=== PATIENT | female | born 1940 | race Caucasian/White ===

== ENCOUNTER 2017-07-03 09:17 | Day surgery (SDC) | payer MEDICARE, BC, SELFPAY ==
[2017-06-30 13:50] VITALS: BMI 24.0
[2017-07-03] VITALS (8 sets, daily range): BP systolic 143–162; BP diastolic 69–89; PULSE 76–90; RESP 16–20; TEMP 36.7–36.8; O2SAT 92–99
--- NOTE | 2017-07-03 10:28 | HMH.ANESCL ---
[facility] Anesthesia Checklist - Patient Identification Patient Identification: Arm Band, Verbal (Name & ) - Structural Data Admitted From: Home Planned Operative Procedure/s: endo Consent for Planned Operative Procedure(s) Verified: Yes Verified Documents: Surgical Consent - NPO Status Verified Time NPO: 00:00 - Additional verifications Patient : No Anesthesia Reactions: No Hx Blood Transfusions: No Blood Transfusion Reaction: No Cephalosporin Allergy: No Previous Colonoscopy: No - Cardiovascular Assessment Heart Sounds: S1 & S2 Pulse Strength: Baseline Pulse Rhythm: Regular Peripheral Edema: No - Airway Assessment C-Spine Mobility Assessed: Yes TMJ Mobility Assessed: Yes Dentition: Dentures-good fit - Neurological Assessment Level of Consciousness: Awake, Alert, Appropriate Hx Seizures: No Numbness or tingling in extremities: No - Anesthesia Plan Anesthesia Risk discussed: Yes Anesthesia Plan: Verified ASA Class: II Anesthesia Type: MAC [facility] Anesthesia HX I have reviewed the patient's past medical history: Yes Medical History: Reports:: Anxiety, Asthma, Hyperlipidemia, Hypertension, Lung Disease (asthma) Denies:: Diabetes Mellitus Type 1, Diabetes Mellitus Type 2, Internal Pacemaker, Seizures Other Medical History: Reports: Arthritis Laterality Cases: Left: Arthroscopy Knee, Right: Total Knee Replacement Other Surgeries: Yes: Appendectomy, Hernia Repair, Hysterectomy-Partial, Other (orthopedic,gallbladder,tonsils). No: Pacemaker *Family Hx:: Cancer, Heart Attack, Hyperlipidemia, Hypertension
--- NOTE | 2017-07-03 10:54 | P.PCN_ITS ---
[facility] Procedure Note Procedure Note:: Upper Endoscopy Procedure Report: Esophagogastroduodenoscopy with TTS balloon dilation Endoscopost: Raymond Jimenez II, MD Referring Physician: Todd Hawk M.D. Date of Procedure: June 30, 2017 Equipment: Olympus GIF 180 standard upper endoscope Sedation: MAC sedation Indications: Mrs. Brown is a 77-year-old female with dysphagia. She reports some intermittent indigestion. She often has regurgitation of food after swallowing and this has worsened over the last 3-4 months. The patient did have a prior upper endoscopy with dilation in 2012 of a Schatzki's ring. The patient does have a history of gallstones with prior cholecystectomy. She reports no heartburn or reflux but does have some intermittent indigestion. Procedure: Prior to the procedure, a history and physical exam was performed, and patient' s medications and allergies were reviewed. The risks, benefits and alternatives of the sedation and procedure were discussed with the patient. All questions were answered and informed consent was obtained. The patient was brought to the procedure room. Patient identification and proposed procedure were verified by the physician and the nurse. The patient was placed in a left lateral decubitus position and the scope was passed under direct vision. Throughout the procedure, the patient's blood pressure, pulse, and oxygen saturations were monitored continuously. The upper GI endoscopy was accomplished without difficulty. The patient tolerated the procedure well. Findings: The scope was passed directly into the upper esophagus and advanced to the third portion of the duodenum. There was a larger duodenal diverticulum in the third portion of the duodenum. There was another duodenal diverticulum that was in the second portion and was a periampullary duodenal diverticulum. The remaining post bulbar duodenum and duodenal bulb were normal with normal mucosa and conniventes. The scope was withdrawn through a normal duodenal bulb and pylorus into the stomach. There was some bile reflux with mild linear erythema of the antrum. The remainder of the antrum, body and fundus of the stomach were grossly normal. Upon retroflexion there was a small 1-2 cm hiatal hernia. The scope was then withdrawn into the esophagus. There was a distal Schatzki's ring. There were also tertiary contractions of mild esophageal dysmotility. The entire esophagus was dilated to 60 [place]/20 mm with a TTS hydrostatic balloon and the Schatzki's ring was shattered. The remainder of the esophageal mucosa was normal. Impression: 1. Schatzki's ring dilated to 20 mm 2. Nonerosive GERD with small 1-2 cm hiatal hernia and mild esophageal dysmotility 3. Bile reflux with minimal linear reactive antritis/gastritis 4. Duodenal diverticula Plan: I will place the patient on omeprazole ?3 months. The patient should have clinical improvement of her dysphagia. We will discuss the findings. Certainly duodenal diverticula are associated with increased risk of choledocholithiasis.
--- NOTE | 2017-07-03 13:03 | HMH.ANESCL ---
[facility] Anesthesia Checklist - Structural Data Planned Operative Procedure/s: colonoscopy Consent for Planned Operative Procedure(s) Verified: Yes - Airway Assessment C-Spine Mobility Assessed: Yes TMJ Mobility Assessed: Yes Dentition: Good Dentition - Neurological Assessment Level of Consciousness: Awake, Alert - Anesthesia Plan Anesthesia Risk discussed: Yes Anesthesia Plan: Verified ASA Class: II Anesthesia Type: MAC [facility] Anesthesia HX Medical History: Reports:: Anxiety, Asthma, Hyperlipidemia, Hypertension, Lung Disease (asthma) Denies:: Diabetes Mellitus Type 1, Diabetes Mellitus Type 2, Internal Pacemaker, Seizures Other Medical History: Reports: Arthritis. Denies: Blood Transfusion Reaction Laterality Cases: Left: Arthroscopy Knee, Right: Total Knee Replacement Other Surgeries: Yes: Appendectomy, Hernia Repair, Hysterectomy-Partial, Other (orthopedic,gallbladder,tonsils). No: Pacemaker *Family Hx:: Cancer, Heart Attack, Hyperlipidemia, Hypertension
== END 2017-07-03 11:38 | disposition home or self-care (01) ==
LOC: OUTP 09:18
PROVIDERS: Family Provider Internal Medicine Adolescent Medicine; PCP Internal Medicine Adolescent Medicine; Visit Provider Internal Medicine Gastroenterology
PROC: 0DJ08ZZ Inspection of Upper Intestinal Tract, Via Natural or Artificial Opening Endoscopic (ICD-10-PCS; CPT 43235; principal; 2017-07-03 10:30)
DX: K22.2 Esophageal obstruction (principal); K21.9 Gastro-esophageal reflux disease without esophagitis; K44.9 Diaphragmatic hernia without obstruction or gangrene; K22.4 Dyskinesia of esophagus; K57.10 Diverticulosis of small intestine without perforation or abscess without bleeding
CPT/HCPCS: 43249; C1726

== ENCOUNTER 2018-11-30 14:00 | Outpatient (RCR) | payer MEDICARE, BC, SELFPAY ==
--- NOTE | 2018-10-31 14:40 | HMH.PTOPEV ---
PT Outpatient Evaluation Rehab PT Outpatient Evaluation Start: 10/31/18 13:22 Freq: Status: Active Protocol: Document 10/31/18 13:22 FAZAL (Rec: 10/31/18 14:40 FAZAL [id number]) Electronically Signed By Kg Valencia, PT 10/31/18 13:22 Outpatient Therapy Subjective History Subjective History Pt reports insidious onset R hip pain beginning ~2 months ago. Pt reports activities involving care for spouse in poor health may have precipitated R hip pain which now experiences intermittent radicular s/s into R calf area . Pt reports no LBP, however, feels that a fall ~1 yr may also be a contributing factor. PMH: B TKA 1995,2016 Chief Complaint Pain,Paresthesia Symptom Type Ache,Sharp,Dull Symptoms Relieved By Rest/Positioning,Heat Symptoms Aggravated By Standing,Bending/Stooping, Physical Activity,Walking, Lifting Prior Functional Limitations Lifting,Housework,Standing, Walking,Bending/Stooping Current Functional Limitations Lifting,Housework,Standing, Walking,Bending/Stooping Symptom Description Constant but Variable Level of pain today (0-10) 2 Pain scale - at its best (0-10) 2 Pain scale - at its worst (0-10) 5 Lumbopelvic Eval Posture Thoracic Spine Posture Standing Position Flattened Lumbar Spine Posture Standing Position Flattened Assistive device Assistive Devices None / NA Gait Observation General Gait Pattern Observation Antalgic Gait Palapation tenderness right paraspinal tenderness Yes: 3/4 buttock tenderness Yes: 3/4 Lumbar/Sacral Palpation Findings Tenderness Accessory Movement L-spine Vertebrae Accessory Movements Right P/A [place] that Elicit Symptoms L4 right L5 right Range of Motion Lumbar Spine Active Flexion Range of 0-75 Motion (degrees) Lumbar Spine Active Extension Range of 0-25 Motion (degrees) Left Lumbar Spine Lateral Flexion Active 0-25 Range of Motion (degrees) Right Lumbar Spine Lateral Flexion 0-25 Active Range of Motion (degrees) Manual Muscle Test Bilateral Knee Extension Strength Grade 5 Normal Knee Flexion Strength Grade 4 Good Hip Flexion Strength Grade 4- Good- Extensor Hallucis Longus Strength Grade 5 Normal Ankle Dorsiflexion Strength Grade 5 Normal Gastronemius/Soleus Str
== END 2018-11-30 14:05 | disposition home or self-care (01) ==
LOC: PT 14:00
PROVIDERS: PCP Internal Medicine Adolescent Medicine; Visit Provider Internal Medicine Adolescent Medicine
DX: M54.41 Lumbago with sciatica, right side (principal)
CPT/HCPCS: 97010; 97012; 97014; 97035; 97110; 97163; G0283

== ENCOUNTER → 2019-12-06 13:54 | Outpatient (CLI) | payer MEDICARE, BC, SELFPAY ==
[2019-12-06 15:52] LABS: Coronavirus 19 IgG Antibody Positive (Negative); Coronavirus 19 IgM Antibody Negative (Negative)
== END ==
PROVIDERS: Visit Provider Internal Medicine Gastroenterology
DX: Z01.818 Encounter for other preprocedural examination (principal); Z12.11 Encounter for screening for malignant neoplasm of colon
CPT/HCPCS: 36415; 86328

== ENCOUNTER 2019-12-09 08:47 | Day surgery (SDC) | payer MEDICARE, BC, SELFPAY ==
[2019-12-03 09:59] VITALS: BMI 25.0
[2019-12-09] VITALS (7 sets, daily range): BP systolic 79–154; BP diastolic 45–81; PULSE 69–100; RESP 10–16; TEMP 36.4–36.7; O2SAT 91–98
--- NOTE | 2019-12-09 09:42 | HMH.ANESCL ---
[facility] Anesthesia Checklist - Patient Identification Patient Identification: Arm Band, Verbal (Name & ) - Structural Data Admitted From: Home Planned Operative Procedure/s: EGD/Colonoscopy Consent for Planned Operative Procedure(s) Verified: Yes Verified Documents: Surgical Consent, History and Physical - NPO Status Verified Time NPO: 00:00 - Chart Verification Results Verified: None - Additional verifications Anesthesia Reactions: No Hx Blood Transfusions: No Blood Transfusion Reaction: No - Airway Assessment C-Spine Mobility Assessed: Yes TMJ Mobility Assessed: Yes Dentition: Dentures-good fit (upper) - Neurological Assessment Level of Consciousness: Awake, Alert, Appropriate, Follows Commands Hx Seizures: No Numbness or tingling in extremities: No - Anesthesia Plan Anesthesia Risk discussed: Yes Anesthesia Plan: Verified ASA Class: III Anesthesia Type: MAC [facility] History I have reviewed the patient's past medical history: Yes Medical History: Reports:: Anxiety, Asthma, Depression, Gastroesophageal Reflux Disease(GERD), Hypertension, Palpitations Denies:: Cancer, Diabetes Mellitus Type 1, Diabetes Mellitus Type 2, Internal Pacemaker, MRSA, Seizures *Have you ever received a pneumonia vaccine?: Yes *Have you received a flu vaccine this season?: Yes Other Medical History: Reports: Arthritis. Denies: Blood Transfusion Reaction Anesthesia experience/problems:: None Laterality Cases: Left: Arthroscopy Knee, Bilateral: Tonsillectomy, Total Knee Replacement Other Surgeries: Yes: Appendectomy, Cholecystectomy, Colonoscopy, Hernia Repair, Hysterectomy-Partial, Tubal Ligation, Other (orthopedic,gallbladder,tonsils). No: Pacemaker Amputation: No Fractures: No - *Social History Last grade of school completed: GED Smoking Status: Never smoker Alcohol Intake: never Alcohol Intake Frequency:: other Substance Use Type: denies use *Occupational Status:: retired *Travel in the last 8 weeks: None - Psychiatric History Pschychiatric History:: Reports:: Anxiety Family Hx:: Cancer, Heart Attack, Hyperlipidemia, Hypertension
--- NOTE | 2019-12-09 09:51 | P.PCN_ITS ---
[facility] Procedure Note Procedure Note:: Upper Endoscopy Procedure Report: Esophagogastroduodenoscopy with TTS balloon dilation Endoscopost: Raymond Jimenez II, MD Referring Physician: Todd Hawk M.D. Date of Procedure: December 09, 2019 Equipment: Olympus GIF 180 standard upper endoscope Sedation: MAC sedation Indications: Mrs. Langston is an 79-year-old female with a long history of dysphagia intermittently from a Schatzki's ring. She had dilation of a Schatzki's ring in 2007 and 2012. She had repeat EGD with dilation in June 2017. The patient has had recurrent symptoms of dysphagia. The patient has had some obstipation. She has regulated her use of MiraLAX. She reports no abdominal pain or heartburn. Procedure: Prior to the procedure, a history and physical exam was performed, and patient's medications and allergies were reviewed. The risks, benefits and alternatives of the sedation and procedure were discussed with the patient. All questions were answered and informed consent was obtained. The patient was brought to the procedure room. Patient identification and proposed procedure were verified by the physician and the nurse. The patient was placed in a left lateral decubitus position and the scope was passed under direct vision. Throughout the procedure, the patient's blood pressure, pulse, and oxygen saturations were monitored continuously. The upper GI endoscopy was accomplished without difficulty. The patient tolerated the procedure well. Findings: The scope was passed directly into the upper esophagus and advanced to the third portion of the duodenum. The post bulbar duodenum and duodenal bulb were normal with normal mucosa and conniventes. The scope was withdrawn through a normal duodenal bulb and pylorus into the stomach. There was some bile reflux with mild linear reactive gastropathy. The remainder of the antrum, body and fundus of the stomach were grossly normal. Upon retroflexion there was a small 1 to 2 cm hiatal hernia. The scope was then withdrawn into the esophagus. There was a distal Schatzki's ring. This was dilated to 20 mm/60 [place] with a TTS hydrostatic balloon. There was fracturing of the Schatzki's ring. There was mild esophageal dysmotility. The remainder of the esophageal mucosa was normal. Impression: 1. Schatzki's ring dilated to 20 mm 2. Mild linear reactive gastropathy 3. Nonerosive GERD with mild esophageal dysmotility and small 1 to 2 cm hiatal hernia Plan: The patient should have clinical improvement with esophageal dilation. I will proceed with surveillance colonoscopy.
--- NOTE | 2019-12-09 10:14 | P.PCN_ITS ---
[facility] Procedure Note Procedure Note:: Colonoscopy Procedure Report: Colonoscopy with cold snare polypectomy Endoscopist: Raymond Jimenez II, MD Referring physician: Todd Hawk M.D. Date of Procedure: December 09, 2019 Equipment: Olympus 180 variable stiffness pediatric colonoscope Sedation: MAC sedation Indication: Mrs. Brown is an 79-year-old female with a personal history of colon polyps who is here for surveillance colonoscopy. She did have a colonoscopy and December 2016 and had 4 colon polyps (tubular adenomas x4) which were removed. She does state that her maternal aunt had colon cancer and her mother and brother had colon polyps. Her mother also had ovarian cancer. The patient has had some chronic constipation/obstipation but recently had more bowel frequency/diarrhea with the MiraLAX. This was adjusted and she is doing better. She reports no abdominal pain, weight loss, change in her bowel habits or rectal bleeding. Procedure: Prior to the procedure, a history and physical exam was performed, and patient's medications and allergies were reviewed. The risks, benefits and alternatives of the sedation and procedure were discussed with the patient. All questions were answered and informed consent was obtained. The patient was brought to the procedure room. Patient identification and proposed procedure were verified by the physician and the nurse. The patient was placed in a left lateral decubitus position and the scope was passed under direct vision. Throughout the procedure, the patient's blood pressure, pulse, and oxygen saturations were monitored continuously. The colonoscopy was accomplished without difficulty. The patient tolerated the procedure well. Findings: On digital rectal examination there was normal rectal tone. There were no external hemorrhoids. The colonoscope was introduced through the anal canal to the rectum and advanced to the cecum. The ileocecal valve and appendiceal orifice were identified. The scope was advanced a short distance into the ileum which appeared grossly normal. The scope was then withdrawn into the colon. The cecum, ascending and transverse colon and mucosa were grossly normal. There was a diminutive 3 mm polyp in the descending colon removed via cold snare polypectomy. There were scattered diverticuli throughout the descending and sigmoid colon (LEFT colon). The rectum itself was normal. Upon retroflexion within the rectum there were grade 1-2 internal hemorrhoids. The preparation was excellent throughout with [place] Preparation Score of 9. The cecal time was 12 minutes. Impression: 1. Diminutive descending colon polyp 2. Extensive left-sided diverticulosis 3. Grade 1-2 internal hemorrhoids Plan: I am not convinced that the patient will need any further preventive/screening colonoscopy. I will discuss the findings with the patient and family. I would continue a fiber bowel regimen on a long-term and daily basis.
--- NOTE | 2019-12-09 10:30 | PC.NURSE ---
Pt arrived to post with oral airway in place. Pt airway remains patent.
--- NOTE | 2019-12-09 10:32 | PC.NURSE ---
Oral airway removed, pt tolerated well. Airway remains patent.
== END 2019-12-09 11:11 | disposition home or self-care (01) ==
LOC: OUTP 08:49
PROVIDERS: PCP Internal Medicine Adolescent Medicine; Visit Provider Internal Medicine Gastroenterology
PROC: 0DJ08ZZ Inspection of Upper Intestinal Tract, Via Natural or Artificial Opening Endoscopic (ICD-10-PCS; CPT 43235; principal; 2019-12-09 10:00)
DX: Z12.11 Encounter for screening for malignant neoplasm of colon (principal); Z86.010 Personal history of colon polyps; K63.5 Polyp of colon; K64.0 First degree hemorrhoids; K57.30 Diverticulosis of large intestine without perforation or abscess without bleeding; K22.2 Esophageal obstruction; K44.9 Diaphragmatic hernia without obstruction or gangrene; K21.9 Gastro-esophageal reflux disease without esophagitis; K31.9 Disease of stomach and duodenum, unspecified; K22.4 Dyskinesia of esophagus; I10 Essential (primary) hypertension; J45.909 Unspecified asthma, uncomplicated
CPT/HCPCS: 43249; 45385; 88305; C1726; J2704

== ENCOUNTER 2020-02-26 15:00 | Outpatient (RCR) | payer MEDICARE, BC, SELFPAY ==
--- NOTE | 2020-01-01 14:00 | HMH.PTOPEV ---
PT Outpatient Evaluation Rehab PT Outpatient Evaluation Start: 01/01/20 13:40 Freq: Status: Active Protocol: Document 01/01/20 13:40 MECHE (Rec: 01/01/20 14:00 [id number]) Electronically Signed By Cl Solis, PT 01/01/20 13:40 Outpatient Therapy Subjective History Subjective History Patient is a 79 year old female presenting to outpatient PT with reports BLE deconditioning and poor balance that has progressively gotten worse over the past year. Pt report 3 falls over the past year secondary to a misstep and getting knocked off balance. Patient lives at home alone requiring negotiation of stairs. She complains of B hip pain (R>L) and chronic LBP as well. Today her main concern is R shoulder pain. PT requested order from MD for R shoulder pain with OT. Referred for ataxia and gait abnormality. Comorbidities include B TKA, HTN and cholecystectomy. Chief Complaint Weakness,Decreased Coordination Symptom Type Ache Symptoms Relieved By Rest/Positioning Symptoms Aggravated By Physical Activity Prior Functional Limitations None Current Functional Limitations Housework,Standing,Squatting, Recreation Activity,Walking, Stairs,Balance,Bending/ Stooping Symptom Description Intermittent Level of pain today (0-10) 0 Pain scale - at its best (0-10) 0 Pain scale - at its worst (0-10) 6 Balance Eval Subjective Hx of Complaint Comment Pt reports general decline in BLE strength and balance. Chief Complaint vertigo No Did you feel dizzy, unsteady or faint? No Activity at onset 1 yr Prior Functional Limitations Prior Functional [place] Level None Current Functional Limitations Comment Patient has difficulty with all standing and ambulatory activities. Hx of Falls Hx Falls Yes Number in last 6 months 3 Gait/Posture Asssessment General Gait Observation Ataxic Gait Assistive Devices
== END 2020-02-26 15:05 | disposition home or self-care (01) ==
LOC: PT 15:00
PROVIDERS: PCP Internal Medicine Adolescent Medicine; Visit Provider Internal Medicine Adolescent Medicine
DX: R27.0 Ataxia, unspecified (principal)
CPT/HCPCS: 97110; 97112; 97163; 97530

== ENCOUNTER 2020-03-04 14:00 | Outpatient (RCR) | payer MEDICARE, BC, SELFPAY | END 2020-03-04 14:05 | disposition home or self-care (01) | LOC: OT 14:00 | PROVIDERS: PCP Internal Medicine Adolescent Medicine; Visit Provider Internal Medicine Adolescent Medicine | DX: M25.511 Pain in right shoulder (principal) | CPT/HCPCS: 97014; 97035; 97110; 97164; 97165; 97530; G0283 ==

== ENCOUNTER 2020-05-31 14:00 | Emergency (ER) | payer MEDICARE, BC, SELFPAY ==
[2020-05-31 14:00] VITALS: BP 152/74; PULSE 84; RESP 16; TEMP 36.3; O2SAT 97; BMI 25.0
--- NOTE | 2020-05-31 14:24 | HMH.EDUTC ---
[facility] Disposition Clinical Impression: Acute bronchitis Qualifiers: Bronchitis organism: other organism Qualified Code(s): J20.8 - Acute bronchitis due to other specified organisms Disposition: Home, Self-Care Condition on Discharge: Good Instructions: Acute Bronchitis, DI for Acute Bronchitis Additional Instructions: Start antibiotic today. Be sure to complete entire prescription even if feeling better Tylenol and ibuprofen as needed for pain or fever Humidifier/vaporizer/hot steamy shower Follow-up with primary care tomorrow. Follow-up immediately in the ER of the [facility] for new or worsening symptoms or no noticeable improvement over the next 48-72 hours. Radha Cunha will not cause drowsiness to use at bedtime to help stop cough so that she can get some sleep Prescriptions: Azithromycin [Zithromax 250mg tab] 250 mg PO DIRECTED #6 tab Prescription Printed Referrals: Todd Hawk MD [Primary Care Provider] - Time of Disposition: 14:37 Medical Decision Making - Ralph Inquiry Pt receiving controlled substance: No Vital Signs: 05/31/20 14:00 Temperature 97.4 F L Temperature Source Oral Pulse Rate [Right Brachial] 84 Respiratory Rate 16 Blood Pressure [Right Arm] 152/74 H Blood Pressure Mean [Right Arm] 100 Blood Pressure Source [Right Arm] Automatic Cuff Blood Pressure Position [Right Arm] Sitting 02 Sat by Pulse Oximetry 97 Oxygen Delivery Method Room Air [facility] HPI - General Chief complaint: Urgent Treatment Center Stated complaint: sore throat Time Seen by Provider: 05/31/20 14:28 Mode of Arrival: Ambulatory Source of Information: Patient Limitations: No Limitations Description of Symptoms (Recalled from Triage Doc. by RN): PATIENT C/O DRAINAGE IN THROAT AND COUGH X 2 DAYS HEENT Symptoms (Recalled from RN notes): Yes Resp Symptoms (Recalled from RN notes): Yes Skin Symptoms (Recalled from RN notes): No MS Symptoms (Recalled from RN notes): No Functional Status (Recalled from RN notes): WN - History of Present Illness Provider Complaint: 80 yr old female presents for sore throat, wheezing,and coughing up thick sputum for 2 days. pt states she had her 1st covid vaccine on monday and does not want a covid swab. Pt states she has copd and he pcp gives her a steroid shot and oral antibiotics and tries to get ahead of it because she takes pneumonia easy. - Related Data Home Medications Medication Instructions Recorded Confirmed lisinopril 20 mg tablet 20 mg PO DAILY tab 06/20/17 05/21/20 ascorbate calcium (vitamin C) 500 500 mg PO DAILY 11/13/19 05/21/20 mg tablet cyanocobalamin (vitamin B-12) 1,000 mcg PO DAILY 11/13/19 05/21/20 1,000 mcg capsule multivitamin with minerals-folic 1 mg PO DAILY 11/13/19 05/21/20 acid 0.4 mg tablet Previous Rx's Medication Instructions Recorded Azithromycin [Zithromax 250mg tab] 250 mg PO DIRECTED #6 tab 05/31/20 Allergies Allergy/AdvReac Type Severity Reaction Status Date / Time No Known Allergies Allergy Verified 05/21/20 15:07 - Worker's Comp Is this a Worker's Comp case?: No [facility] History - Hepatitis A Screen Drug use history?: No High risk sexual behaviors?: No History of sexually transmitted infection?: No Currently employed?: No Childcare worker?: No Do you have indoor plumbing?: Yes Do you have electricity?: Yes Attestation statement:: This patient has been screened for Hepatitis A risk factors. I have reviewed the patient's past medical history: Yes Medical History: Reports:: Anxiety, Asthma, Depression, Gastroesophageal Reflux Disease(GERD), Hyperlipidemia, Hypertension, Lung Disease, Palpitations Denies:: Cancer, Diabetes Mellitus Type 1, Diabetes Mellitus Type 2, Internal Pacemaker, MRSA, Seizures Other Medical History: Reports: Arthritis. Denies: Blood Transfusion Reaction Laterality Cases: Left: Arthroscopy Knee, Bilateral: Tonsillectomy Other Surgeries: Yes: Appendectomy, Cholecystectomy, Colonoscop
[2020-05-31 14:25] LABS: UTC Strep Screen (Rapid) Negative (Negative)
[2020-05-31 14:42] VITALS: BP 152/74; PULSE 84; RESP 16; TEMP 36.3; O2SAT 97
== END 2020-05-31 14:44 | disposition home or self-care (01) ==
PROVIDERS: Emergency Provider Nurse Practitioner Family; PCP Internal Medicine Adolescent Medicine
DX: J20.8 Acute bronchitis due to other specified organisms (principal); J44.9 Chronic obstructive pulmonary disease, unspecified; K21.9 Gastro-esophageal reflux disease without esophagitis; F41.8 Other specified anxiety disorders; E78.5 Hyperlipidemia, unspecified; I10 Essential (primary) hypertension; Z79.899 Other long term (current) drug therapy
CPT/HCPCS: G0463; 87880; 96372; 99202

== ENCOUNTER → 2020-08-21 11:43 | Outpatient (CLI) | payer MEDICARE, BC, SELFPAY ==
[2020-08-21 12:33] LABS: Basophils # 0.1 K/mm3 (0-0.2); Basophils % 1.5 % (0.1-2.0); Eosinophils # 0.1 K/mm3 (0.0-0.4); Eosinophils % 2.2 % (0.1-12.0); Hematocrit 41.8 % (37.0-47.0); Hemoglobin 13.4 g/dL (12.2-16.2); Lymphocytes # 1.6 K/mm3 (0.7-4.5); Lymphocytes % 30.9 % (10-50); Mean Corpuscular HGB Conc 32.1 g/dL (31.8-35.4); Mean Corpuscular Hemoglobin 29.3 pg (27.0-31.2); Mean Corpuscular Volume 91.1 fl (81-99); Mean Platelet Volume 8.6 fl (7.4-10.4); Monocytes # 0.3 K/mm3 (0.1-1.0); Monocytes % 5.9 % (1.7-9.3); Neutrophils % 59.4 % (37.0-80.0); Platelet Count 229 K/mm3 (142-424); Red Blood Count 4.59 M/mm3 (4.20-5.40); Red Cell Distribution Width 13.2 % (11.5-17.5); White Blood Count 5.1 K/mm3 (4.8-10.8)
[2020-08-21 13:01] LABS: Chloride 104 mmol/L (98-107); Sodium 138 mmol/L (136-145)
[2020-08-21 13:02] LABS: Potassium 4.8 mmoL/L (3.5-5.1)
[2020-08-21 13:04] LABS: Alanine Aminotransferase 10 U/L (12-78); Albumin Level 4.4 g/dl (3.5-5.0); Albumin/Globulin Ratio 1.8 (1.1-1.8); Alkaline Phosphatase 71 U/L (38-126); Anion Gap 11.8 mEq/L (5-15); Aspartate Amino Transferase 28 U/L (14-36); Bilirubin,Total 0.8 mg/dl (0.2-1.3); Blood Urea Nitrogen 23 mg/dl (7-17); Carbon Dioxide 27 mmol/L (22.0-30.0); Estimated Glomerular Filt Rate 80 ml/min (>60); GFR (African American) 97 ML/MIN (>60); Globulin 2.4 g/dL (1.3-3.2); Total Protein,Serum 6.8 g/dl (6.3-8.2); Triglycerides 84 mg/dl (30-150); VLDL Cholesterol 17 mg/dL (0-40)
[2020-08-21 13:05] LABS: Calcium 9.6 mg/dl (8.4-10.2); Chol/HDL Ratio 3.3 (1-3.5); Cholesterol 238 mg/dl (140-200); Glucose 88 mg/dl (74-100); HDL Cholesterol 73 mg/dl (40-60)
[2020-08-21 13:16] LABS: Direct LDL Cholesterol 136.71 mg/dL (100-129)
[2020-08-21 13:35] LABS: Thyroid Stimulating Hormone 1.18 uIU/mL (0.465-4.68)
== END ==
PROVIDERS: Visit Provider Internal Medicine Adolescent Medicine
DX: I10 Essential (primary) hypertension (principal); Z86.39 Personal history of other endocrine, nutritional and metabolic disease
CPT/HCPCS: 36415; 80053; 80061; 84443; 85025

== ENCOUNTER → 2020-10-19 11:39 | Outpatient (CLI) | payer MEDICARE, BC, SELFPAY ==
--- NOTE | 2020-10-19 11:46 | XR_ITS ---
PROCEDURE: XR CHEST W DECUBITUS Left ribs CLINICAL HISTORY: CHEST WALL PAIN, ACUTE BRONCHOPNEUMONIA COMPARISON: CR CXR CHEST(2 VIEWS-NOT PORTABLE) from 05/16/2016 CT CTAC CTA-CHEST from 11/13/2016 CR CXR CHEST(2 VIEWS-NOT PORTABLE) from 02/22/2017 CR XR CHEST 2V from 04/25/2019 CR XR RIBS LT MIN 3V W CXR1V from 10/19/2020 FINDINGS: The heart size is unremarkable. There is mild prominence of the right hilum. The lungs are clear without infiltrates, suspicious nodules, or pleural effusions. Right and left lateral decubitus chest film show no evidence significant layering effusion. Prominent mitral valve annular calcification is noted. Lumbar scoliosis convex right. Multiple views of the left ribs show no displaced fracture. There is an old right humeral neck fracture versus prominent osteophyte formation with mild chronic wedging of T8 IMPRESSION: Chronic changes, no acute finding. Mild prominence of the right hilum. Consider chest CT with contrast for further evaluation. Dictated by: Artemio Fields MD 10/19/2020 13:03 Artemio Fields MD in [place] 10/19/2020 13:03
== END ==
PROVIDERS: PCP Internal Medicine Adolescent Medicine; Visit Provider Internal Medicine Adolescent Medicine
DX: R07.89 Other chest pain (principal); J18.0 Bronchopneumonia, unspecified organism
CPT/HCPCS: 71045; 71101

== ENCOUNTER 2020-11-13 12:53 | Emergency (ER) | payer MEDICARE, BC, SELFPAY ==
[2020-11-13 13:49] VITALS: BP 141/76; PULSE 72; RESP 16; TEMP 36.9; O2SAT 98; BMI 24.2
--- NOTE | 2020-11-13 14:09 | HMH.EDUTC ---
[facility] [place] Disposition Clinical Impression: Bronchitis Sinusitis Qualifiers: Sinusitis location: unspecified location Chronicity: unspecified Qualified Code(s): J32.9 - Chronic sinusitis, unspecified Disposition: Home, Self-Care Condition on Discharge: Good Instructions: Sinusitis, DI for Sinusitis, DI for Acute Bronchitis Additional Instructions: ? Start antibiotic today. Be sure to complete entire prescription even if feeling better ? Monitor temp. Tylenol every 4 hours as needed and / or ibuprofen every 6 hours as needed ( As long as your primary care physician has told you that it ok to take both. For fever/aches/pains ER if no less than 101 despite Tylenol or Motrin ? Humidifier/vaporizer or hot steamy shower ? Inhaler every 4-6 hours as needed like we discussed. If unsure how to use it, ask pharmacist to demonstrate how. Should help open airways and improve cough, wheezing, and shortness of breath Follow up IMMEDIATELY for new or worsening of symptoms OR no noticeable improvement over the next 48-72 hours. 911 immediately for any life threatening symptoms such as chest pain or difficulty breathing Prescriptions: Albuterol Sulfate [Proventil-HFA 90mcg/puff Inh] 1 - 2 puffs IH Q4HP PRN #1 inh PRN Reason: Shortness Of Breath Transmission Status: Received by [id number] Azithromycin [Z-Nick 250mg Tab] 250 mg PO DIRECTED #6 tab Transmission Status: Received by [id number] Referrals: Todd Hawk MD [Primary Care Provider] - As needed Time of Disposition: 14:36 Medical Decision Making - Ralph Inquiry Pt receiving controlled substance: No Ralph was queried for this patient: No Vital Signs: 11/13/20 13:49 Temperature 98.4 F Temperature Source Oral Pulse Rate [Right] 72 Respiratory Rate 16 Blood Pressure [Right Arm] 141/76 H Blood Pressure Mean [Right Arm] 97 Blood Pressure Source [Right Arm] Automatic Cuff Blood Pressure Position [Right Arm] Sitting 02 Sat by Pulse Oximetry 98 Oxygen Delivery Method Room Air Orders (Tests/Meds): ED MEDICATIONS Discontinued Medications Generic Name Dose Route Start Last Admin Trade Name Freq PRN Reason Stop Dose Admin Ceftriaxone Sodium 1 gm 11/13/20 14:16 11/13/20 14:26 Ceftriaxone 1gm Vial IM 11/13/20 14:17 1 gm ONCE ONE Administration Protocol Lidocaine HCl 0 ml 11/13/20 14:16 11/13/20 14:26 Lidocaine 1% 5ml Pf Vial IM 11/13/20 14:17 2.1 ml ONCE ONE Administration Medical Decision Narrative: Patient states that she has taken azithromycin in the past without reactions or complications [facility] HPI - General Stated complaint: Congestion sorethroat Time Seen by Provider: 11/13/20 14:09 Mode of Arrival: Ambulatory Source of Information: Patient Limitations: No Limitations Description of Symptoms (Recalled from Triage Doc. by RN): pt c/o cough and congestion HEENT Symptoms (Recalled from RN notes): No Resp Symptoms (Recalled from RN notes): Yes (cough and congestion) Skin Symptoms (Recalled from RN notes): No MS Symptoms (Recalled from RN notes): No Functional Status (Recalled from RN notes): na - History of Present Illness Provider Complaint: Patient states that she has been having sore throat, cough, nasal congestion and drainage State that she has been coughing up greenish colored mucous States that she gets bronchitis about this time every year and starts with her sinus congestion States that she came in to get treated before it got too bad - Related Data Home Medications Medication Instructions Recorded Confirmed lisinopril 20 mg tablet 20 mg PO DAILY tab 06/20/17 11/12/20 ascorbate calcium (vitamin C) 500 500 mg PO DAILY 11/13/19 11/12/20 mg tablet cyanocobalamin (vitamin B-12) 1,000 mcg PO DAILY 11/13/19 11/12/20 1,000 mcg capsule multivitamin with minerals-folic 1 mg PO DAILY 11/13/19 11/12/20 acid 0.4 mg tablet celecoxib 100 mg capsule 100 mg PO cap 08/20/20 11/12/20 alprazo
[2020-11-13 14:59] VITALS: BP 141/76; PULSE 72; RESP 16; TEMP 36.9; O2SAT 98
== END 2020-11-13 14:59 | disposition home or self-care (01) ==
PROVIDERS: Emergency Provider Nurse Practitioner; PCP Internal Medicine Adolescent Medicine
DX: J20.9 Acute bronchitis, unspecified (principal); J32.9 Chronic sinusitis, unspecified; I10 Essential (primary) hypertension; E78.5 Hyperlipidemia, unspecified; F41.8 Other specified anxiety disorders; K21.9 Gastro-esophageal reflux disease without esophagitis
CPT/HCPCS: G0463; 99202

== ENCOUNTER → 2020-12-17 10:14 | Outpatient (CLI) | payer MEDICARE, BC, SELFPAY ==
[2020-12-17 10:41] LABS: Basophils # 0.1 K/mm3 (0-0.2); Basophils % 1.9 % (0.1-2.0); Eosinophils # 0.2 K/mm3 (0.0-0.4); Eosinophils % 4.4 % (0.1-12.0); Hematocrit 42.1 % (37.0-47.0); Hemoglobin 13.4 g/dL (12.2-16.2); Lymphocytes # 1.6 K/mm3 (0.7-4.5); Lymphocytes % 31.4 % (10-50); Mean Corpuscular HGB Conc 31.7 g/dL (31.8-35.4); Mean Corpuscular Hemoglobin 30.5 pg (27.0-31.2); Mean Corpuscular Volume 96.3 fl (81-99); Mean Platelet Volume 8.5 fl (7.4-10.4); Monocytes # 0.2 K/mm3 (0.1-1.0); Monocytes % 4.8 % (1.7-9.3); Neutrophils # 2.8 K/mm3 (1.8-7.8); Neutrophils % 57.5 % (37.0-80.0); Platelet Count 190 K/mm3 (142-424); Red Blood Count 4.37 M/mm3 (4.20-5.40); Red Cell Distribution Width 12.7 % (11.5-17.5); White Blood Count 4.9 K/mm3 (4.8-10.8)
[2020-12-17 11:01] LABS: Chloride 106 mmol/L (98-107); Potassium 4.3 mmoL/L (3.5-5.1); Sodium 142 mmol/L (136-145)
[2020-12-17 11:03] LABS: Blood Urea Nitrogen 16 mg/dl (7-17); Estimated Glomerular Filt Rate 80 ml/min (>60); GFR (African American) 97 ML/MIN (>60)
[2020-12-17 11:04] LABS: Alanine Aminotransferase 9 U/L (12-78); Albumin Level 3.7 g/dl (3.5-5.0); Albumin/Globulin Ratio 1.4 (1.1-1.8); Alkaline Phosphatase 54 U/L (38-126); Anion Gap 11.3 mEq/L (5-15); Aspartate Amino Transferase 25 U/L (14-36); Bilirubin,Total 0.5 mg/dl (0.2-1.3); Calcium 9.1 mg/dl (8.4-10.2); Carbon Dioxide 29 mmol/L (22.0-30.0); Globulin 2.6 g/dL (1.3-3.2); Glucose 90 mg/dl (74-100); Total Protein,Serum 6.3 g/dl (6.3-8.2)
[2020-12-17 11:34] LABS: Thyroid Stimulating Hormone 1.69 uIU/mL (0.465-4.68)
== END ==
PROVIDERS: Visit Provider Internal Medicine Adolescent Medicine
DX: I10 Essential (primary) hypertension (principal)
CPT/HCPCS: 36415; 80053; 84443; 85025

== ENCOUNTER 2021-01-22 16:15 | Emergency (ER) | payer MEDICARE, BC, SELFPAY ==
[2021-01-22 16:41] VITALS: BP 141/72; PULSE 85; RESP 17; TEMP 36.8; O2SAT 99; BMI 25.7
--- NOTE | 2021-01-22 16:47 | HMH.EDUTC ---
[facility] [place] Disposition Clinical Impression: Bronchitis Sinusitis Qualifiers: Sinusitis location: unspecified location Chronicity: unspecified Qualified Code(s): J32.9 - Chronic sinusitis, unspecified Disposition: Home, Self-Care Condition on Discharge: Good Instructions: Sinusitis, DI for Sinusitis, Azithromycin, Benzonatate Additional Instructions: *Monitor Temp, Over the counter Motrin or Tylenol as directed/as needed Tylenol every 4 hours and Motrin every 6 hours (as long as your family doctor has told you that you can take it) for fever or pain. and straight to ER if unable to lower temp less than 101.0 after medication given *Warm salt water gargles may help to soothe the throat *Throat Lozenges *Warm fluids like tea with honey may help to soothe the throat *Sleep elevated *Humidifier/Vaporizer *Flonase 2 sprays in each nostril daily but be aware that it may take 2-3 days before you notice improvement Take medication as prescribed Return if needed Follow up with your Family Doctor if no improvement Follow up IMMEDIATELY for new or worsening symptoms or no Noticeable improvement over the next 48-72 hours. 911 for difficulty breathing or swallowing Prescriptions: Fluticasone Propionate [Flonase 50mcg nasal spray 16gm] 1 spr NS DAILY #1 each Transmission Status: Pending to [facility] Benzonatate [Tessalon Perle 100mg Cap*] 100 mg PO TID PRN #30 cap PRN Reason: Cough Transmission Status: Pending to [facility] Azithromycin [Z-Nick 250mg Tab] 250 mg PO DIRECTED #6 tab Transmission Status: Pending to [facility] Referrals: [facility],Carine Sagastume [Primary Care Provider] - Time of Disposition: 17:00 Medical Decision Making - Ralph Inquiry Pt receiving controlled substance: No Ralph was queried for this patient: No Vital Signs: 01/22/21 16:41 Temperature 98.2 F Temperature Source Temporal Artery Scan Pulse Rate [Left] 85 Respiratory Rate 17 Blood Pressure [Right Arm] 141/72 H Blood Pressure Mean [Right Arm] 95 02 Sat by Pulse Oximetry 99 Medical Decision Narrative: Patient states that she has taken azithromycin in the past without complications or reactions [facility] [place] HPI - General Stated complaint: cough, drainage, allergies x 3 days Time Seen by Provider: 01/22/21 16:53 Mode of Arrival: Ambulatory Source of Information: Patient Limitations: No Limitations Description of Symptoms (Recalled from Triage Doc. by RN): PT C/O A SORE THROAT AND DRAINAGE X3 DAYS HEENT Symptoms (Recalled from RN notes): Yes (SORE THROAT AND DRAINAGE) Resp Symptoms (Recalled from RN notes): No Skin Symptoms (Recalled from RN notes): No MS Symptoms (Recalled from RN notes): No Functional Status (Recalled from RN notes): NA - History of Present Illness Provider Complaint: Patient states that she started off with allergies a week or so ago and now she is having nasal congestion, pressure and drainage in the back of her throat that is making her cough States that she feels like her throat is getting sore and today she was feeling worse so she came in to get it checked - Related Data Home Medications Medication Instructions Recorded Confirmed lisinopril 20 mg tablet 20 mg PO DAILY tab 06/20/17 11/12/20 ascorbate calcium (vitamin C) 500 500 mg PO DAILY 11/13/19 11/12/20 mg tablet cyanocobalamin (vitamin B-12) 1,000 mcg PO DAILY 11/13/19 11/12/20 1,000 mcg capsule multivitamin with minerals-folic 1 mg PO DAILY 11/13/19 11/12/20 acid 0.4 mg tablet celecoxib 100 mg capsule 100 mg PO cap 08/20/20 11/12/20 alprazolam 0.25 mg tablet 0.25 mg PO PRN tab 11/12/20 11/12/20 atorvastatin 10 mg tablet 10 mg PO tab 11/12/20 11/12/20 Previous Rx's Medication Instructions Recorded Albuterol Sulfate [Proventil-HFA 1 - 2 puffs IH Q4HP PRN #1 inh 11/13/20 90mcg/puff Inh] Azithromycin [Z-Nick 250mg Tab] 250 mg PO DIRECTED #6 tab 11/13/20 Azithromycin [Z-Nick 250m
[2021-01-22 17:05] VITALS: BP 141/72; PULSE 85; RESP 17; TEMP 36.8
== END 2021-01-22 17:08 | disposition home or self-care (01) ==
PROVIDERS: Emergency Provider Nurse Practitioner; PCP Internal Medicine Adolescent Medicine
DX: J20.9 Acute bronchitis, unspecified (principal); J32.9 Chronic sinusitis, unspecified; K21.9 Gastro-esophageal reflux disease without esophagitis; E78.5 Hyperlipidemia, unspecified; F41.8 Other specified anxiety disorders; I10 Essential (primary) hypertension; J45.909 Unspecified asthma, uncomplicated; Z79.899 Other long term (current) drug therapy
CPT/HCPCS: G0463; 99202

== ENCOUNTER → 2021-02-24 11:48 | Outpatient (CLI) | payer MEDICARE, BC, SELFPAY ==
--- NOTE | 2021-02-24 | CA_ITS ---
APPROVED REPORT EXAM: Comprehensive 2D, Doppler, and color-flow Echocardiogram Brim Shaper: Ivelisse Mitchell RT(R) Ht: 5 ft 4 in Wt: 150lbs BSA: 1.73 BP: 148/76 mmHg Indications: Murmur, palpitations, HTN, rheumatic fever, GERD, hyperlipidemia 2D Dimensions LVOT 2.17 cm (M/F) 1.5-2.5 M-Mode Dimensions RVDd 2.50 cm (0.9-2.6) LA Diam 3.55 cm (1.9-4.0) LVDd 5.01 cm (3.5-5.7) Ao Diam 3.26 cm (2.0-3.7) LVDs 3.29 cm (3.5-5.7) IVSd 0.75 cm (0.6-1.1) PWd 0.63 cm (0.6-1.1) EF (Teich) 63.10% FS 34.30% EDV (Teich) 118.80 mL ESV (Teich) 43.80 mL LV Diastology E Decel Time 363.00 (160-240 msec) E/A Ratio 0.7 Aortic Valve LVOT Max 116.00 (70-110 cm/s) LVOT VTI 24.88 cm AoV Peak Jaun. 256.00 (50-130 cm/s) AO Peak GR. 26.30 mmHg AO Mean GR. 12.90 (<5 mmHg) AO VTI 51.00 (18-25 cm) ARIEL (VTI) 1.80 (2.5-4.5 cm2) Mitral Valve MV E Max Jaun. 118.00 (40-130 cm/s) MV A Velocity 163.00 (40-130 cm/s) E/A Ratio 0.72 MV Decel. Time 363.00 (160-240 ms) MV PHT 106.00 ms Tricuspid Valve TR P. Velocity 224.00 cm/s RAP Estimate 10.00 mmHg RVSP 30.10 mmHg Left Ventricle Left atrium is mildly enlarged, left ventricle is normal size, mild concentric left ventricular hypertrophy, visually estimated ejection fraction 55% with no regional wall motion abnormality, Doppler evidence of impaired LV relaxation seen. Right Ventricle Right atrium and right ventricle is normal size and contractility. Aortic Valve Aortic valve is thickened and calcified, mean gradient across valve is 13 mmHg, valve area is 1.54 cm??? represents mild aortic stenosis, there is mild aortic insufficiency. Mitral Valve Mitral valve has mitral annular calcification which extends both anterior posterior mitral leaflet, the mean gradient across mitral valve is 5 mmHg, valve area is 2.4 cm??? represents mild calcific mitral stenosis. There is mild mitral regurgitation. Tricuspid Valve Tricuspid valve grossly normal, there is mild tricuspid regurgitation, calculated right ventricular systolic pressure 30 mmHg. Pulmonic Valve Pulmonic valve is poorly visualized. Great Vessels Aortic root is normal size. Inferior vena cava is normal size with normal inspiratory collapse. Pericardium No significant pericardial effusion noted. Conclusion 1. Mildly enlarged left atrium, normal left ventricular size, mild concentric left ventricular hypertrophy, visually estimated ejection fraction 55% with no regional wall motion abnormality, Doppler evidence of impaired LV relaxation seen. 2. Thickened and calcified aortic valve with valve area 1.54 cm??? represents mild aortic stenosis, there is mild aortic insufficiency. 3. Thickened and calcified mitral valve as described above, with mild mitral stenosis, valve area is 2.4 cm???. There is mild mitral regurgitation. 4. Mild tricuspid regurgitation, calculated right ventricular systolic pressure 30 mmHg. 5. No significant pericardial effusion noted. 6. Inferior vena cava is normal size with normal inspiratory collapse. Electronically signed by : Jeronimo Greenberg MD 02/25/2021 16:20:51
== END ==
PROVIDERS: PCP Internal Medicine Adolescent Medicine; Visit Provider Internal Medicine Adolescent Medicine
DX: R01.1 Cardiac murmur, unspecified (principal)
CPT/HCPCS: 93306

== ENCOUNTER → 2021-04-28 10:08 | Outpatient (CLI) | payer MEDICARE, BC, SELFPAY ==
[2021-04-28 10:12] LABS: Adenovirus F 40/41, stool Not Detected (NotDetected); Astrovirus Not Detected (NotDetected); Campylobacter Not Detected (NotDetected); Clostridium Difficile A/B, PCR Not Detected (NotDetected); Cryptosporidium Not Detected (NotDetected); Cyclospora Cayetanesis Not Detected (NotDetected); Entamoeba histolytica Not Detected (NotDetected); Enteroaggregative E coli Not Detected (NotDetected); Enteropathogenic E coli Not Detected (NotDetected); Enterotoxigenic E coli Not Detected (NotDetected); Giardia lamblia Not Detected (NotDetected); Norovirus Not Detected (NotDetected); Plesimonas Shigalloides, PCR Not Detected (NotDetected); Rotavirus A Not Detected (NotDetected); Salmonella, PCR Not Detected (NotDetected); Sapovirus Not Detected (NotDetected); Shiga-like toxin E coli Not Detected (NotDetected); Shigella Enterovasive E coli Not Detected (NotDetected); Vibrio Cholerae Not Detected (NotDetected); Vibrio, PCR Not Detected (NotDetected); Yersinia Entercolitica, PCR Not Detected (NotDetected)
== END ==
PROVIDERS: Visit Provider Nurse Practitioner Family
DX: R19.7 Diarrhea, unspecified (principal); R19.4 Change in bowel habit; R14.2 Eructation; R63.0 Anorexia
CPT/HCPCS: 87506

== ENCOUNTER 2021-05-29 11:23 | Emergency (ER) | payer MEDICARE, BC, SELFPAY ==
[2021-05-29] VITALS (12 sets, daily range): BP systolic 131–188; BP diastolic 72–95; PULSE 80–92; RESP 15–19; TEMP 36.6; O2SAT 97–99; BMI 25.7; BMI 29.2
--- NOTE | 2021-05-29 11:42 | HMH.EDUTC ---
[facility] [place] Clinical Impression: Dizziness Disposition: Still a Patient Condition on Discharge: Good Referrals: Todd Hawk MD [Primary Care Provider] - Time of Disposition: 11:47 Medical Decision Making - Ralph Inquiry Pt receiving controlled substance: No [facility] H[place] - General Chief complaint: [facility] Stated complaint: right ear pain Time Seen by Provider: 05/29/21 11:43 Source of Information: Patient Limitations: No Limitations - History of Present Illness Provider Complaint: 81 yr old female presents for dizziness, swimmy headed, gait off, rt ear pain and vision is off that started this am. pt states she lives alone and she had a hard time this am trying to get around due to unsteady gait. - Related Data Home Medications Medication Instructions Recorded Confirmed lisinopril 20 mg tablet 20 mg PO DAILY tab 06/20/17 05/17/21 ascorbate calcium (vitamin C) 500 500 mg PO DAILY 11/13/19 05/17/21 mg tablet cyanocobalamin (vitamin B-12) 1,000 mcg PO DAILY 11/13/19 05/17/21 1,000 mcg capsule multivitamin with minerals-folic 1 mg PO DAILY 11/13/19 05/17/21 acid 0.4 mg tablet celecoxib 100 mg capsule 100 mg PO cap 08/20/20 05/17/21 alprazolam 0.25 mg tablet 0.25 mg PO PRN tab 11/12/20 05/17/21 atorvastatin 10 mg tablet 10 mg PO tab 11/12/20 05/17/21 Previous Rx's Medication Instructions Recorded Albuterol Sulfate [Proventil-HFA 1 - 2 puffs IH Q4HP PRN #1 inh 11/13/20 90mcg/puff Inh] Fluticasone Propionate [Flonase 1 spr NS DAILY #1 each 01/22/21 50mcg nasal spray 16gm] Allergies Allergy/AdvReac Type Severity Reaction Status Date / Time No Known Allergies Allergy Verified 05/17/21 13:40 [facility] History - Hepatitis A Screen Attestation statement:: This patient has been screened for Hepatitis A risk factors. I have reviewed the patient's past medical history: Yes Medical History: Reports:: Anxiety, Asthma, Depression, Gastroesophageal Reflux Disease(GERD), Hyperlipidemia, Hypertension, Lung Disease, Palpitations Denies:: Cancer, Diabetes Mellitus Type 1, Diabetes Mellitus Type 2, Internal Pacemaker, MRSA, Seizures Other Medical History: Reports: Arthritis. Denies: Blood Transfusion Reaction Laterality Cases: Left: Arthroscopy Knee, Bilateral: Tonsillectomy Other Surgeries: Yes: No Previous Surgery, Appendectomy, Cholecystectomy, Colonoscopy, Hernia Repair, Hysterectomy-Partial, Tubal Ligation, Other (orthopedic,gallbladder,tonsils). No: Pacemaker Amputation: No Fractures: No - Social History Smoking Status: Never smoker Alcohol Intake: never Alcohol Intake Frequency:: other Substance Use Type: denies use Occupational Status: other Housing: house Household Members: none - Psychiatric History Pschychiatric History:: Reports:: Anxiety, Depression Family Hx:: Cancer, Heart Attack, Hyperlipidemia, Hypertension Comment: arthritis,tb, ROS Obtained: Yes Systems reviewed as appropriate & no additional complaints - Constitutional Constitutional: Reports system reviewed and no additional complaints, except as docu, Denies body ache, Denies fever(s) - Eyes Eyes: Reports system reviewed and no additional complaints, except as docu, Reports blurry vision, Reports irritation, Reports loss of vision - ENT Ears, Nose, Mouth, and Throat: Reports system reviewed and no additional complaints, except as docu, Reports dizziness, Reports otalgia - Cardiovascular Cardiovascular: Reports system reviewed and no additional complaints, except as docu, Denies chest pain - Respiratory Respiratory: Reports system reviewed and no additional complaints, except as docu, Denies shortness of breath - Gastrointestinal Gastrointestingal: Reports: system reviewed and no additional complaints, except as docu. Denies: abdominal pain - Musculoskeletal Musculoskeletal: Reports system reviewed and no additional complaints, except as docu, Denies joint pain - Integumentary/[place]
--- NOTE | 2021-05-29 11:45 | PC.NURSE ---
PATIENT SENT TO ER PER Kandi BURROUGHS APRN FOR FURTHER EVALUATION. REPORT GIVEN TO Franko RICHMOND RN BY Kandi BURROUGHS APRN
--- NOTE | 2021-05-29 12:20 | CT_ITS ---
PROCEDURE INFORMATION: Exam: CT Head Without Contrast Exam date and time: 05/29/2021 12:20 PM Age: 81 years old Clinical indication: Dizziness; Additional info: Visual changes, dizziness acute onset, posterior? TECHNIQUE: Imaging protocol: Computed tomography of the head without contrast. Radiation optimization: All CT scans at this facility use at least one of these dose optimization techniques: automated exposure control; mA and/or kV adjustment per patient size (includes targeted exams where dose is matched to clinical indication); or iterative reconstruction. Other technique: STROKE PROTOCOL was implemented. COMPARISON: No relevant prior studies available. FINDINGS: Brain: There is a 5 mm hyperdensity within the superior aspect of the left frontal lobe which has Hounsfield units measuring 70. It is somewhat small to characterize and may be consistent with a calcification or an acute parenchymal hemorrhage. There is no adjacent edema. There is no mass effect. There is preservation of the garcia-white junction throughout. Cerebral ventricles: The ventricles and CSF spaces are normal in size for age. Paranasal sinuses: There is rightward gaze preference. Mastoid air cells: Visualized mastoid air cells are well aerated. Orbital cavity: There are postoperative changes from prior cataract surgery. Bones/joints: No acute fracture. Soft tissues: Unremarkable. IMPRESSION: Abnormal noncontrast CT of the brain with a 5 mm hyperdensity in the high left frontal lobe which could be secondary to an acute parenchymal hemorrhage without mass effect or edema. A parenchymal calcification may have a similar finding. ASSESSMENT: ASPECTS ([facility]iane Stroke Program Early CT Score) is 10.
--- NOTE | 2021-05-29 12:20 | CT_ITS ---
PROCEDURE INFORMATION: Exam: CT Angiography Head With Contrast, Arteriography Exam date and time: 05/29/2021 12:20 PM Age: 81 years old Clinical indication: Dizziness and giddiness and visual disturbance; Transient visual loss; Additional info: Visual changes, dizziness acute onset, posterior? TECHNIQUE: Imaging protocol: Computed tomography angiography of the head with contrast. Exam focused on the arteries. 3D rendering (Not supervised by radiologist): MIP and/or 3D reconstructed images were created by the technologist. Radiation optimization: All CT scans at this facility use at least one of these dose optimization techniques: automated exposure control; mA and/or kV adjustment per patient size (includes targeted exams where dose is matched to clinical indication); or iterative reconstruction. Contrast material: ISOVUE; Contrast volume: 70 ml; Contrast route: INTRAVENOUS (IV); COMPARISON: CT HEAD/BRAIN WO CON 05/29/2021 1:23 PM FINDINGS: ANTERIOR CIRCULATION: Right internal carotid artery: There is atherosclerotic disease at the origin of the right ICA without narrowing. Right middle cerebral artery: No occlusion or significant stenosis. No aneurysm. Right anterior cerebral artery: No occlusion or significant stenosis. No aneurysm. Left internal carotid artery: There is atherosclerotic disease at the origin of the left ICA without narrowing. Left middle cerebral artery: No occlusion or significant stenosis. No aneurysm. Left anterior cerebral artery: No occlusion or significant stenosis. No aneurysm. POSTERIOR CIRCULATION: Right vertebral artery: No occlusion or significant stenosis. No aneurysm. Left vertebral artery: No occlusion or significant stenosis. No aneurysm. Basilar artery: No occlusion or significant stenosis. No aneurysm. Right posterior cerebral artery: No occlusion or significant stenosis. No aneurysm. Left posterior cerebral artery: No occlusion or significant stenosis. No aneurysm. Bones/joints: There are degenerative changes of the cervical spine. Thyroid: The thyroid is heterogeneous. Lungs: There are two 5 mm semi-solid nodules in the right lung apex. There is a pneumatocele in the anterior left upper lobe. IMPRESSION: 1. There is no cervical arterial stenosis or occlusion. 2. 5 mm semi-solid nodules right upper lobe. As per Fleischner Society guidelines for follow-up and management of pulmonary nodules: For patients at low risk (minimal or absent history of smoking and of other known risk factors), recommend follow-up chest CT at 12 months; if unchanged, no further follow-up. For patient at high risk (history of smoking or of other known risk factors), recommend initial follow-up chest CT at 6-12 months, then at 18-24 months if no interval change.
--- NOTE | 2021-05-29 12:20 | CT_ITS ---
PROCEDURE INFORMATION: Exam: CT Angiography Neck With Contrast Exam date and time: 05/29/2021 12:20 PM Age: 81 years old Clinical indication: Dizziness and giddiness and visual disturbance; Transient visual loss; Additional info: Visual changes, dizziness acute onset, posterior? TECHNIQUE: Imaging protocol: Computed tomography angiography of the neck with contrast. 3D rendering (Not supervised by radiologist): MIP and/or 3D reconstructed images were created by the technologist. Radiation optimization: All CT scans at this facility use at least one of these dose optimization techniques: automated exposure control; mA and/or kV adjustment per patient size (includes targeted exams where dose is matched to clinical indication); or iterative reconstruction. Contrast material: ISOVUE; Contrast volume: 70 ml; Contrast route: INTRAVENOUS (IV); COMPARISON: CT HEAD/BRAIN WO CON 05/29/2021 1:23 PM FINDINGS: Right common carotid artery: No stenosis. No dissection or occlusion. Right internal carotid artery: There is atherosclerotic disease involving the right cavernous ICA without narrowing. Right external carotid artery: No occlusion or stenosis of the origin. Left common carotid artery: No stenosis. No dissection or occlusion. Left internal carotid artery: There is atherosclerotic disease involving the left cavernous ICA without narrowing. Left external carotid artery: No occlusion or stenosis of the origin. Right vertebral artery: No stenosis. No dissection or occlusion. Left vertebral artery: No stenosis. No dissection or occlusion. Brain: There is no abnormal enhancement of location the punctate left parenchymal hyperdensity. Soft tissues: Normal. No significant soft tissue swelling. Bones/joints: No acute fracture. IMPRESSION: 1. No intracranial arterial stenosis or occlusion. 2. No abnormal enhancement at the location of the punctate hyperdensity. REFERENCES: NASCET CRITERIA. The degree of internal carotid artery stenosis is based on NASCET criteria. Normal is no stenosis. Mild is less than 50% stenosis. Moderate is 50-69% stenosis. Severe is 70% to 99% stenosis. Total occlusion is no detectable patent lumen.
[2021-05-29 12:43] LABS: Basophils # 0.1 K/mm3 (0-0.2); Basophils % 2.5 % (0.1-2.0); Eosinophils # 0.1 K/mm3 (0.0-0.4); Eosinophils % 1.6 % (0.1-12.0); Hematocrit 43.9 % (37.0-47.0); Hemoglobin 13.9 g/dL (12.2-16.2); Lymphocytes # 1.6 K/mm3 (0.7-4.5); Lymphocytes % 29.1 % (10-50); Mean Corpuscular HGB Conc 31.6 g/dL (31.8-35.4); Mean Corpuscular Hemoglobin 30.2 pg (27.0-31.2); Mean Corpuscular Volume 95.7 fl (81-99); Mean Platelet Volume 8.7 fl (7.4-10.4); Monocytes # 0.3 K/mm3 (0.1-1.0); Monocytes % 4.8 % (1.7-9.3); Neutrophils # 3.4 K/mm3 (1.8-7.8); Platelet Count 212 K/mm3 (142-424); Red Blood Count 4.59 M/mm3 (4.20-5.40); Red Cell Distribution Width 12.7 % (11.5-17.5); White Blood Count 5.5 K/mm3 (4.8-10.8)
--- NOTE | 2021-05-29 12:45 | PC.NURSE ---
has been paged.
--- NOTE | 2021-05-29 12:46 | PC.NURSE ---
on the phone with
[2021-05-29 13:01] LABS: Chloride 104 mmol/L (98-107); Sodium 137 mmol/L (136-145)
[2021-05-29 13:04] LABS: Alanine Aminotransferase 11 U/L (12-78); Albumin Level 4.4 g/dl (3.5-5.0); Albumin/Globulin Ratio 1.4 (1.1-1.8); Alkaline Phosphatase 68 U/L (38-126); Aspartate Amino Transferase 28 U/L (14-36); Bilirubin,Total 0.8 mg/dl (0.2-1.3); Blood Urea Nitrogen 11 mg/dl (7-17); Calcium 9.5 mg/dl (8.4-10.2); Carbon Dioxide 29 mmol/L (22.0-30.0); Creatinine Clearance Estimated 46 mL/min (50-200); Estimated Glomerular Filt Rate 80 ml/min (>60); GFR (African American) 97 ML/MIN (>60); Globulin 3.1 g/dL (1.3-3.2); Glucose 97 mg/dl (74-100); Total Protein,Serum 7.5 g/dl (6.3-8.2)
[2021-05-29 13:05] LABS: Magnesium 2.1 mg/dl (1.6-2.3)
--- NOTE | 2021-05-29 13:39 | HMH.EDGENADL ---
ED Disposition Clinical Impression: Dizziness Disposition: Home, Self-Care Condition on Discharge: Good Referrals: Todd Hawk MD [Primary Care Provider] - - Critical Care Critical Care Time: No Attestation: On 05/29/21, the high probability of a clinically significant, sudden or life threatening deterioration of the following system(s) required my full and direct attention, intervention and personal management. The time I documented below is in addition to time spent performing reported procedures but includes the following listed in this critical care notation. Medical Decision Making - Medical Records Medical records reviewed: Yes: I reviewed the patient's medical records. - Ralph Inquiry Pt receiving controlled substance: No Vital Signs: 05/29/21 11:30 05/29/21 11:54 05/29/21 12:00 Temperature 97.8 F 97.8 F Temperature Source Oral Oral Pulse Rate 83 Pulse Rate [Right Brachial] 85 92 H Respiratory Rate 18 19 Blood Pressure 160/92 H Blood Pressure [Right Arm] 148/86 H 188/85 H Blood Pressure Mean 156 Blood Pressure Mean [Right Arm] 106 119 Blood Pressure Source [Right Arm] Automatic Cuff Blood Pressure Position [Right Arm] Sitting Sitting 02 Sat by Pulse Oximetry 98 98 97 Oxygen Delivery Method Room Air Room Air 05/29/21 12:20 05/29/21 13:00 05/29/21 14:14 Temperature Temperature Source Pulse Rate 88 80 80 Pulse Rate [Right Brachial] Respiratory Rate 16 Blood Pressure 170/95 H 164/89 H 141/72 H Blood Pressure [Right Arm] Blood Pressure Mean 135 126 96 Blood Pressure Mean [Right Arm] Blood Pressure Source [Right Arm] Blood Pressure Position [Right Arm] 02 Sat by Pulse Oximetry 97 98 99 Oxygen Delivery Method 05/29/21 14:31 05/29/21 15:01 05/29/21 16:00 Temperature Temperature Source Pulse Rate 88 83 85 Pulse Rate [Right Brachial] Respiratory Rate 16 16 16 Blood Pressure 138/89 136/84 131/76 Blood Pressure [Right Arm] Blood Pressure Mean 99 Blood Pressure Mean [Right Arm] Blood Pressure Source [Right Arm] Blood Pressure Position [Right Arm] 02 Sat by Pulse Oximetry 98 98 97 Oxygen Delivery Method 05/29/21 16:15 05/29/21 17:15 05/29/21 19:01 Temperature 97.9 F Temperature Source Pulse Rate 86 86 84 Pulse Rate [Right Brachial] Respiratory Rate 16 15 17 Blood Pressure 136/72 138/76 131/72 Blood Pressure [Right Arm] Blood Pressure Mean Blood Pressure Mean [Right Arm] Blood Pressure Source [Right Arm] Blood Pressure Position [Right Arm] 02 Sat by Pulse Oximetry 98 98 Oxygen Delivery Method Room Air - Lab Data Lab Results 05/29/21 12:10: WBC 5.5, RBC 4.59, Hgb 13.9, Hct 43.9, MCV 95.7, MCH 30.2, MCHC 31.6 L, RDW 12.7, Plt Count 212, MPV 8.7, Neut % (Auto) 62.0, Lymph % (Auto) 29.1, Hamb[place] % (Auto) 4.8, Eos % (Auto) 1.6, Baso % (Auto) 2.5 H, Neut # (Auto) 3.4, Lymph # (Auto) 1.6, Hamb[place] # (Auto) 0.3, Eos # (Auto) 0.1, Baso # (Auto) 0.1 05/29/21 12:10: Sodium 137, Potassium 4.0, Chloride 104, Carbon Dioxide 29, Anion Gap 8.0, BUN 11, Creatinine 0.70, Estimated Creat Clear 46, Estimated GFR 80, Est GFR ( Amer) 97, Glucose 97, Calcium 9.5, Magnesium 2.1, Total Bilirubin 0.8, AST 28, ALT 11 L, Alkaline Phosphatase 68, Total Protein 7.5, Albumin 4.4, Globulin 3.1, Albumin/Globulin Ratio 1.4 Result diagrams: 05/29/21 12:10 05/29/21 12:10 Orders (Tests/Meds): ED MEDICATIONS Discontinued Medications Generic Name Dose Route Start Last Admin Trade Name Gerberq PRN Reason Stop Dose Admin Iopamidol 75 ml 05/29/21 13:42 05/29/21 13:43 Iopamidol-370 (76%);100ml Bottle IV 05/29/21 13:43 75 ml ONCE ONE Administration Sodium Chloride 50 ml 05/29/21 13:42 05/29/21 13:43 0.9 % Sodium Chloride 50 Ml Vial IV 05/29/21 13:43 50 ml ONCE ONE Administration Sodium Chloride 10 ml 05/29/21 13:42 05/29/21 13:43 Sodium Chloride 0.9% 10ml Syr (Rad Only) IV
--- NOTE | 2021-05-29 14:25 | PC.NURSE ---
liberty to call back to speak with
--- NOTE | 2021-05-29 14:41 | PC.NURSE ---
on the phone with MDs
--- NOTE | 2021-05-29 14:51 | PC.NURSE ---
SPOKE WITH PT'S DAUGHTER UPDATED ON PLAN OF CARE
--- NOTE | 2021-05-29 17:00 | PC.NURSE ---
RESTING FAMILY AT BEDSIDE
--- NOTE | 2021-05-29 17:10 | CT_ITS ---
PROCEDURE INFORMATION: Exam: CT Head Without Contrast Exam date and time: 05/29/2021 5:10 PM Age: 81 years old Clinical indication: Dizziness; Additional info: 6 hr scan for followup-- er Dr spoke to previous radiologists who recommended a follow up 6 hour scan to check frontal lobe spot TECHNIQUE: Imaging protocol: Computed tomography of the head without contrast. Radiation optimization: All CT scans at this facility use at least one of these dose optimization techniques: automated exposure control; mA and/or kV adjustment per patient size (includes targeted exams where dose is matched to clinical indication); or iterative reconstruction. COMPARISON: CT HEAD/BRAIN WO CON 05/29/2021 1:23 PM FINDINGS: Brain: Stable appearance of 5 mm partially calcified hyperdensity in the posterior left frontal lobe compared with head CT performed approximately 4 hours prior. No acute intracranial hemorrhage. No intra- or extra-axial fluid collection. No mass effect or midline shift. 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 Cerebral ventricles: No hydrocephalus. Paranasal sinuses: No air fluid levels in the visualized paranasal sinuses. Mastoid air cells: Visualized mastoid air cells are well aerated. Orbital cavity: Bilateral lens replacement. Globes and retro-orbital structures are otherwise unremarkable. Bones/joints: Disproportionate thickening of the frontal bone with nodularity along the inner table. No acute calvarial or skull base fracture. Soft tissues: Within normal limits. IMPRESSION: 1. No evidence of acute intracranial abnormality. 2. Stable appearance of 5 mm partially calcified hyperdensity in the posterior left frontal lobe compared with head CT performed approximately 4 hours prior. 3. 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 4. Hyperostosis frontalis interna. Findings are nonspecific, but can be associated with various neuropsychiatric symptoms and/or endocrine disorders. Please correlate with patient history and lab chemistries.
== END 2021-05-29 19:18 | disposition home or self-care (01) ==
LOC: UTC 11:48 → ER 11:48
PROVIDERS: Emergency Provider Student in an Organized Health Care Education/Training Program; PCP Internal Medicine Adolescent Medicine
DX: R42 Dizziness and giddiness (principal); F41.8 Other specified anxiety disorders; K21.9 Gastro-esophageal reflux disease without esophagitis
CPT/HCPCS: 70450; 70496; 70498; 80053; 83735; 85025; 99283; Q9967

== ENCOUNTER → 2021-11-23 10:57 | Outpatient (POV) | payer MEDICARE, BC, SELFPAY | PROVIDERS: Visit Provider Dermatology | DX: Z00.00 Encounter for general adult medical examination without abnormal findings (principal) ==

== ENCOUNTER → 2021-12-03 10:35 | Outpatient (CLI) | payer MEDICARE, BC, SELFPAY ==
[2021-12-07 16:12] LABS: Pancreatic Elastase, Fecal 177 (>200)
== END ==
PROVIDERS: PCP Internal Medicine Adolescent Medicine; Visit Provider Internal Medicine Gastroenterology
DX: R10.30 Lower abdominal pain, unspecified (principal); R19.4 Change in bowel habit; R19.8 Other specified symptoms and signs involving the digestive system and abdomen; R14.0 Abdominal distension (gaseous)
CPT/HCPCS: 82656

== ENCOUNTER 2022-06-18 11:56 | Emergency (ER) | payer MEDICARE, BC, SELFPAY ==
[2022-06-18 12:10] VITALS: BP 130/82; PULSE 89; RESP 12; TEMP 37.1; O2SAT 96; BMI 24.1
--- NOTE | 2022-06-18 12:37 | XR_ITS ---
PROCEDURE INFORMATION: Exam: XR Chest Exam date and time: 06/18/2022 12:30 PM Age: 82 years old Clinical indication: Patient HX: Cough, congestion x 1 wk. HX copd, nonsmoker. TECHNIQUE: Imaging protocol: Radiologic exam of the chest. Views: 2 views. COMPARISON: CR XR CHEST W DECUBITUS 10/19/2020 12:09 PM FINDINGS: Lungs: Stable prominence of the right hilum. No focal consolidation. Pleural spaces: Unremarkable. No pleural effusion. No pneumothorax. Heart/Mediastinum: Unremarkable. No cardiomegaly. Bones/joints: Unremarkable. IMPRESSION: No acute findings.
--- NOTE | 2022-06-18 14:10 | EXP.UTC ---
Discharge Plan Disposition Patient Disposition: Home, Self-Care Condition: Good Prescriptions Prescriptions: New albuterol sulfate 90 mcg/actuation HFA aerosol inhaler 2 puff inhalation QID PRN (Reason: shortness of breath or wheezing) Qty: 8.5 1RF benzonatate 100 mg capsule 100 mg PO TID PRN (Reason: cough) Qty: 30 0RF No Action lisinopril 20 mg tablet 20 mg PO DAILY One Daily Womens 50 Plus 0.4 mg tablet 1 mg PO DAILY ascorbate calcium (vitamin C) 500 mg tablet 500 mg PO DAILY cyanocobalamin (vitamin B-12) 1,000 mcg capsule 1,000 mcg PO DAILY atorvastatin 10 mg tablet 10 mg PO DAILY alprazolam 0.25 mg tablet 0.25 mg PO PRN celecoxib 100 mg capsule 200 mg PO DAILY Creon 36,000-114,000- 180,000 unit capsule,delayed release(DR/EC) 1 cap PO BID Rx Instructions: administer with meals and/or snacks fluticasone propionate 120 SPR/BOT bottle 1 spr NS DAILY Qty: 1 0RF Rx Instructions: each nostril daily albuterol sulfate 200 PUFFS HFA aerosol inhaler 1 - 2 puffs IH Q4HP PRN (Reason: Shortness Of Breath) Qty: 1 0RF Referrals Follow up/Referrals: Todd Hawk MD [Primary Care Provider] - See instructions Clinical Impressions Clinical Impression: Acute bronchitis Qualifiers: Bronchitis organism: unspecified organism Qualified Code(s): J20.9 - Acute bronchitis, unspecified Instructions Patient Instructions: DI for Acute Bronchitis Discharge ED Provider: Jade Mckeon [facility] General Stated complaint: hard to talk, cough Mode of Arrival: Ambulatory Source of Information: Patient Limitations: No Limitations Time Seen by Provider: 06/18/22 13:09 Description of Symptoms (Recalled from Triage Doc. by RN): bronchitis. Has neb at home and did not use it HEENT Symptoms (Recalled from RN notes): Yes Resp Symptoms (Recalled from RN notes): No Skin Symptoms (Recalled from RN notes): No MS Symptoms (Recalled from RN notes): No Functional Status (Recalled from RN notes): n/a History of Present Illness Provider Complaint: Pt reports that she has a history of COPD and has a nebulizer at home. She states that she does not have any medication for her machine. She states that she has been coughing and wheezing at home. Related Data Home Medications Medication Instructions Recorded Confirmed lisinopril 20 mg tablet 20 mg PO DAILY blood pressure 06/20/17 06/18/22 ascorbate calcium (vitamin C) 500 500 mg PO DAILY Supplement 11/13/19 06/08/22 mg tablet cyanocobalamin (vitamin B-12) 1,000 mcg PO DAILY Supplement 11/13/19 06/08/22 1,000 mcg capsule multivitamin with minerals-folic 1 mg PO DAILY Supplement 11/13/19 06/08/22 acid 0.4 mg tablet (One Daily Womens 50 Plus) celecoxib 100 mg capsule 200 mg PO DAILY . 08/20/20 06/18/22 alprazolam 0.25 mg tablet 0.25 mg PO PRN 11/12/20 06/08/22 atorvastatin 10 mg tablet 10 mg PO DAILY . 11/12/20 06/18/22 [id number]-[id number] 1 cap PO BID 12/17/21 06/08/22 36,000-114,000-180,000 unit capsule,delay rel (Creon) Previous Rx's Medication Instructions Recorded albuterol sulfate 90 mcg/actuation 1 - 2 puffs inhalation Q4HP PRN 11/13/20 aerosol inhaler Shortness Of Breath #1 inh fluticasone propionate 50 1 spr intranasal DAILY #1 ea 01/22/21 mcg/actuation nasal spray,suspension albuterol sulfate 90 mcg/actuation 2 puff inhalation QID PRN 06/18/22 aerosol inhaler shortness of breath or wheezing #8.5 grams benzonatate 100 mg capsule 100 mg PO TID PRN cough #30 caps 06/18/22 Allergies Allergy/AdvReac Type Severity Reaction Status Date / Time No Known Allergies Allergy Verified 06/18/22 12:27 Worker's Comp Is this a Worker's Comp case?: No [facility] Disclaimer: The information contained in this section may have been updated after the patient was seen, as this information can be updated by other users. Medical History (Reviewed 06/08/22 @ 13:08 by Gabino
[2022-06-18 14:25] VITALS: BP 130/82; PULSE 89; RESP 12; TEMP 37.1; O2SAT 96
== END 2022-06-18 14:25 | disposition home or self-care (01) ==
PROVIDERS: Emergency Provider Nurse Practitioner Family; PCP Internal Medicine Adolescent Medicine
DX: J20.9 Acute bronchitis, unspecified (principal); J44.9 Chronic obstructive pulmonary disease, unspecified
CPT/HCPCS: 71046; 99212; 99213; G0463

== ENCOUNTER 2022-08-10 12:30 | Observation (INO) | payer MEDICARE, BC, SELFPAY ==
--- NOTE | 2022-08-10 12:41 | PC.NURSE ---
arrived by w/c from admissions
[2022-08-10 12:47] VITALS: BP 182/70; PULSE 72; RESP 20; TEMP 36.3; O2SAT 99; BMI 23.3
--- NOTE | 2022-08-10 12:53 | XR_ITS ---
FINAL REPORT CLINICAL HISTORY: Nonspecific cough COMPARISON: 06/18/2022 FINDINGS: Two views of the chest were obtained. The heart size and pulmonary vascularity are within normal limits. The mediastinum is normal. No acute pulmonary abnormality is identified. There is no pneumothorax. The bony thorax is intact. IMPRESSION: Stable chest exam. Reviewed, Interpreted and Dictated by Tate Soto III, MD Transcribed by Kaitlin Dumont Authenticated and [facility]
--- NOTE | 2022-08-10 12:56 | CT_ITS ---
FINAL REPORT TECHNIQUE: Axial images of the head were obtained without contrast. Coronal reformatted images were also obtained.This study was performed with techniques to keep radiation doses as low as reasonably achievable (ALARA). Individualized dose reduction techniques using automated exposure control or adjustment of mA and/or kV according to the patient''s size were employed. CLINICAL HISTORY: dizziness COMPARISON: 05/29/2021 FINDINGS: Stable 5 mm calcification left frontal convexity. Chronic lacunar infarct in the right caudate is stable. There is no evidence of intracranial hemorrhage or mass. The ventricular size is within normal limits. There is no evidence of shift of the midline structures. No abnormal extra axial fluid collection is identified. No skull abnormality is seen on the bone window images. Mucosal thickening in most of the ethmoid air cells and in the left maxillary sinus. IMPRESSION: Stable 5 mm calcification left frontal convexity. Ethmoid air cell and left maxillary sinus mucosal thickening. Reviewed, Interpreted and Dictated by Tate Soto III, MD Transcribed by Kaitlin Dumont Authenticated and [facility]
--- NOTE | 2022-08-10 13:10 | HMH.PHAINT1 ---
Pharmacy Intervention Comments: MEDICATION RECONCILIATION COMPLETED ON PATIENT USING EXTERNAL FILL HISTORY FROM PHARMACY AND LEIGH REPORT. -MATTHEW ABERNATHY, SALLYD
[2022-08-10 13:18] LABS: Coronavirus 19, PCR Not Detected (NotDetected); Influenza A, PCR Not Detected (NotDetected); Influenza B, PCR Not Detected (NotDetected)
[2022-08-10 13:25] LABS: Basophils # 0.1 K/mm3 (0-0.2); Basophils % 1.1 % (0.1-2.0); Eosinophils # 0.2 K/mm3 (0.0-0.4); Eosinophils % 3.6 % (0.1-12.0); Hematocrit 46.2 % (37.0-47.0); Hemoglobin 14.7 g/dL (12.2-16.2); Lymphocytes # 1.4 K/mm3 (0.7-4.5); Mean Corpuscular HGB Conc 31.8 g/dL (31.8-35.4); Mean Corpuscular Hemoglobin 29.6 pg (27.0-31.2); Mean Corpuscular Volume 93.3 fl (81-99); Mean Platelet Volume 9.3 fl (7.4-10.4); Monocytes # 0.3 K/mm3 (0.1-1.0); Neutrophils # 2.8 K/mm3 (1.8-7.8); Neutrophils % 58.3 % (37.0-80.0); Platelet Count 186 K/mm3 (142-424); Red Blood Count 4.95 M/mm3 (4.20-5.40); Red Cell Distribution Width 12.5 % (11.5-17.5); White Blood Count 4.8 K/mm3 (4.8-10.8)
[2022-08-10 13:27] LABS: Lactic Acid 0.9 mmol/L (0.7-2.1)
[2022-08-10 13:30] LABS: Chloride 99 mmol/L (98-107); Sodium 135 mmol/L (136-145)
[2022-08-10 13:32] LABS: Blood Urea Nitrogen 12 mg/dl (7-17)
[2022-08-10 13:33] LABS: Alanine Aminotransferase 13 U/L (12-78); Albumin Level 4.3 g/dl (3.5-5.0); Albumin/Globulin Ratio 1.4 (1.1-1.8); Alkaline Phosphatase 79 U/L (38-126); Aspartate Amino Transferase 26 U/L (14-36); Bilirubin,Total 0.7 mg/dl (0.2-1.3); Carbon Dioxide 30 mmol/L (22.0-30.0); Creatinine Clearance Estimated 42 mL/min (50-200); Estimated Glomerular Filt Rate 68 ml/min (>60); GFR (African American) 83 ML/MIN (>60); Globulin 3.1 g/dL (1.3-3.2); Glucose 90 mg/dl (74-100); Total Protein,Serum 7.4 g/dl (6.3-8.2)
[2022-08-10 13:34] LABS: Magnesium 2.2 mg/dl (1.6-2.3)
[2022-08-10 13:43] LABS: Troponin I < 0.01 ng/ml (0.00-0.034)
--- NOTE | 2022-08-10 13:45 | HMH.OTEV ---
OT Inpatient Evaluation Rehab OT IP Evaluation Start: 08/10/22 12:57 Freq: ONCE Status: Active Protocol: Document 08/10/22 13:40 [facility] (Rec: 08/10/22 13:45 [facility] [id number]) Rehab OT IP Assessment Subjective History Pt oriented x 3 on arrival. Pt agreeable to engage in therapy evaluation. Pt was admitted on 08/10/22 due to dizziness and vertigo. Prior to being in the hospital, pt lived alone. Pt claims she was completely independent with all ADLs and IADLs. Pt did not use a walker or cane during ambulation. Pt also still drives. Subjective I have been sick lately. Objective Patient Orientation Person,Place,Birthday,Month Upper Extremity Gross ROM WFL Bed Mobility bed mobility-scooting,bed mobility - supine/sit,bed mobility - rolling Assist Level Supervision/Stand by Transfer Training Sit/Stand Transfer Assist Level Supervision/Stand by Feeding Ability Assist with Tray Set Up Lower Body Dressing Ability Standby Assistance Performing Toilet Hygiene Ability Standby Assistance Overall Commode/Toilet Transfer Ability Standby Assistance Commode/Toilet Transfer Technique Sit to/from Ambulatory Rehab OT IP prob,goals,plan Problems Date of Evaluation: 08/10/22 Rehab Potential Rehab Potential Innapropriate for Skilled Therapy Discharge Plan OT Discharge Plan At this time, pt appears to be at his baseline with functional transfers and ADL independence. Pt can return home once medically stable per physician. Eval Complexity Eval Charge Codes 54599 - Low Complexity G Codes G -code Required No PHYSICIAN CERTIFICATION: I certify the specified therapy services for Lauren Brown are required, authorized, and reviewed every 30 days.
--- NOTE | 2022-08-10 14:14 | HMH.PTEV ---
Physical Therapy Evaluation Rehab PT IP Evaluation Start: 08/10/22 12:57 Freq: ONCE Status: Active Protocol: Document 08/10/22 14:04 PHORCAMRON (Rec: 08/10/22 14:14 PHORNE [id number]) Subjective/History History History 82 yowf adm to [facility] with vertigo and worsening cough. She reports sinus congestion and coughing for several days with vertigo symptoms only during prolonged coughing fit. She reports she lives alone, 2-3 steps to enter the home, she does not use AD for ambulation and is generally independent with all mobility and ADL. Subjective Subjective Pt has no c/o this pm. Rehab PT IP Eval Objective Appearance Patient Behavior Appropriate Patient Orientation Person,Place,Time Difficulty following instructions none Speech Pattern Clear Ambulation Patient Able to Ambulate Yes Ambulation Observation IP General Gait Pattern Observation No Deviations/Normal Ambulation Distance (feet) 30 Ambulation Assistive Device None Ambulation Ability Independent Balance Ability to Arise Able, uses arms to help Sitting Balance Steady, safe Standing Balance Steady, wide stance Dynamic Sitting Balance Ability Good Dynamic Standing Balance Ability Good Transfers Bed Transfer Ability Independent Chair Transfer Ability Independent Sit to Stand Bed Transfer Ability Independent Sit to Stand Chair Transfer Ability Independent ROM All Extremities PT ROM Status WFL MMT All Extremities PT MMT WFL Rehab PT IP prob,goals,plan Problems Date of Evaluation: 08/10/22 Discharge Plan PT Discharge Plan Pt is currently at baseline for all mobility and has no c/ o vertigo. She is appropriate to return home once medically stable for d/c. G -code Required No Eval Complexity Eval Charge Codes 43238 - Moderate Complexity PHYSICIAN CERTIFICATION: I certify the specified therapy services for Lauren Brown are required, authorized, and reviewed every 30 days.
[2022-08-10 15:04] VITALS: BP 155/73; PULSE 87; RESP 18; TEMP 36.5; O2SAT 97
[2022-08-10 20:00] VITALS: BP 125/64; PULSE 78; RESP 18; TEMP 36.8; O2SAT 94
[2022-08-11 04:00] VITALS: BP 125/58; PULSE 77; RESP 18; TEMP 36.6; O2SAT 95; BMI 23.3
--- NOTE | 2022-08-11 06:33 | PC.NURSE ---
NO ACUTE CHANGES SINCE PREVIOUS ASSESSMENT. VSS. NO C/O DIZZINESS THIS SHIFT. PT DID C/O AN INTERMITTENT NON-PRODUCTIVE COUGH THIS SHIFT. AMBULATING INDEPENDENTLY WITHOUT DIFFICULTY.
[2022-08-11 07:34] VITALS: BP 162/79; PULSE 96; RESP 20; TEMP 36.6
--- NOTE | 2022-08-11 08:28 | EXP.HPDC ---
General Admission date:: 08/10/22 Discharge date: 08/11/22 *Admission Date: 08/10/22 *Chief complaint: Dizziness/cough *History of present illness: 82-year-old white female who is in good functional health who over the past couple of weeks has had a cough has been progressive. She came to my office for cough productive of yellow sputum. In the office one of the coughing spells cause significant dizziness and vertigo and she is unable to stand up. Given her dizziness and inability to care for self at home she was admitted to hospital for Perez and further diagnostic testing. [facility] Disclaimer: The information contained in this section may have been updated after the patient was seen, as this information can be updated by other users. Medical History (Updated 08/10/22 @ 14:25 by Winifred Chávez RN) Hematuria Ovarian cyst Surgical History (Updated 08/10/22 @ 14:25 by Winifred hCávez RN) History of bilateral knee replacement Family History (Updated 08/10/22 @ 14:23 by Winifred Chávez RN) No significant family history Brain cancer Family history of myocardial infarction Social History (Updated 08/10/22 @ 14:26 by Winifred Chávez RN) Smoking Status: Never smoker alcohol intake: never substance use type: denies use current occupational status: other Travel in the last 8 weeks: None household members: none housing: house caffeine: Yes Exam Data for Last 24 hours Vital signs and Labs for Last 24 Hours: Temp Pulse Resp BP Pulse Ox 97.8 F 96 H 20 162/79 H 95 08/11/22 07:34 08/11/22 07:34 08/11/22 07:34 08/11/22 07:34 08/11/22 04:00 Laboratory Results - last 24 hr 08/10/22 12:50: SARS-CoV-2 (PCR) Not detected, Influenza A Untype (PCR) Not detected, Influenza Type B (PCR) Not detected 08/10/22 13:00: WBC 4.8, RBC 4.95, Hgb 14.7, Hct 46.2, MCV 93.3, MCH 29.6, MCHC 31.8, RDW 12.5, Plt Count 186, MPV 9.3, Neut % (Auto) 58.3, Lymph % (Auto) 30.0, Dawes % (Auto) 7.0, Eos % (Auto) 3.6, Baso % (Auto) 1.1, Neut # (Auto) 2.8, Lymph # (Auto) 1.4, Dawes # (Auto) 0.3, Eos # (Auto) 0.2, Baso # (Auto) 0.1 08/10/22 13:00: Sodium 135 L, Potassium 4.0, Chloride 99, Carbon Dioxide 30, Anion Gap 10.0, BUN 12, Creatinine 0.80, Estimated Creat Clear 42, Estimated GFR 68, Est GFR ( Amer) 83, Glucose 90, Calcium 9.0, Magnesium 2.2, Total Bilirubin 0.7, AST 26, ALT 13, Alkaline Phosphatase 79, Total Protein 7.4, Albumin 4.3, Globulin 3.1, Albumin/Globulin Ratio 1.4 08/10/22 13:00: Troponin I < 0.01 08/10/22 13:00: Lactate 0.9 I & O for Last 24 hours: Intake & Output 08/08/22 08/09/22 08/10/22 08/11/22 11:59 11:59 11:59 11:59 Intake Total 3046 / 3046 Output Total 800 / 800 Balance 2246 / 2246 Weight 140 lb 3.424 oz Constitutional Constitutional: no acute distress *Routine HEENT Exam Head: Present normocephalic Eye: Present EOMI and PERRL ENT: Present mucous membranes moist *Routine Neck Exam Neck: Present supple; Absent lymphadenopathy *Routine Respiratory Exam Respiratory: Present CTA bilaterally *Routine Cardiovascular Exam Cardiovascular: Present RRR *Routine Abdominal Exam Abdominal: Present soft and normoactive bowel sounds; Absent tenderness *Routine Rectal Exam Rectal:: deferred *Routine Genitalia Exam Genitalia:: deferred *Routine Extremities Exam Extremities: Absent cyanosis, clubbing or edema *Routine Skin Exam Skin: Present warm; Absent rash *Routine Neurological Exam Neurological: Present alert and oriented X3 Meds Home Medications and Allergies Home Medications Medication Instructions Recorded Confirmed Type lisinopril 20 mg tablet 20 mg PO BID Hypertension 06/20/17 08/10/22 History ascorbate calcium (vitamin C) 500 500 mg PO DAILY Supplement 11/13/19 08/10/22 History mg tablet cyanocobalamin (vitamin B-12) 1,000 mcg PO DAILY Supplement 11/13/19 08/10/22 History 1,000 mcg capsule multivitamin with minerals-folic 1 mg PO DAILY Supplement 10/23
--- NOTE | 2022-08-11 09:22 | HMH.PHAINT1 ---
Pharmacy Intervention Comments: Counseled patient on two new medications to START at discharge (azithromycin and promethazine). Patient expressed understanding of medications' indication, dose, route, frequency, and potential side effects.
== END 2022-08-11 10:11 | disposition home or self-care (01) ==
PROVIDERS: Admitting Provider Internal Medicine Adolescent Medicine; PCP Internal Medicine Adolescent Medicine; Visit Provider Internal Medicine Adolescent Medicine
DX: R55 Syncope and collapse (principal); Z79.899 Other long term (current) drug therapy; R05.9 Cough, unspecified; Z20.822 Contact with and (suspected) exposure to COVID-19
CPT/HCPCS: G0378; G0379; 36415; 70450; 71046; 80053; 83605; 83735; 84484; 85025; 87040; 97162; 97165; C9803; J0456; J0696; U0003; U0005

== ENCOUNTER → 2022-10-04 11:45 | Outpatient (CLI) | payer MEDICARE, BC, SELFPAY ==
--- NOTE | 2022-10-04 11:53 | US_ITS ---
FINAL REPORT CLINICAL HISTORY: Decreased pulses in lower extremities FINDINGS: COMPLETE ANKLE/BRACHIAL INDICES BILATERAL Complete ankle brachial indices were obtained. The right PADMINI is 1.3. The left PADMINI is 1.3. IMPRESSION: Normal ABIs bilaterally. Reviewed, Interpreted and Dictated by Tate Soto III, MD Transcribed by Janelle Sharma Authenticated and [facility]
== END ==
PROVIDERS: PCP Internal Medicine Adolescent Medicine; Visit Provider Nurse Practitioner Family
DX: R09.89 Other specified symptoms and signs involving the circulatory and respiratory systems (principal)
CPT/HCPCS: 93923

== ENCOUNTER 2023-03-03 13:37 | Emergency (ER) | payer MEDICARE, BC, SELFPAY ==
[2023-03-03] VITALS (13 sets, daily range): BP systolic 147–198; BP diastolic 73–90; PULSE 72–89; RESP 16–19; TEMP 36.8–37; O2SAT 97–99; BMI 23.3; BMI 24.9
--- NOTE | 2023-03-03 14:00 | ECG_ITS ---
APPROVED REPORT Exam: Resting ECG HR:77 bpm ECG Measurements Heart Rate 77 AXES MA 175 P 54 QRSd 94 QRS 52 QT 389 T 37 QTc 421 Conclusion SINUS RHYTHM POSSIBLE LEFT ATRIAL ENLARGEMENT [-0.1mV P-WAVE IN V1/V2] BORDERLINE ECG UNCONFIRMED REPORT Electronically signed by : Todd Hawk MD 03/05/2023 08:41:28
--- NOTE | 2023-03-03 14:15 | EXP.UTC ---
Discharge Plan Disposition Patient Disposition: Still a Patient Condition: Good Prescriptions Prescriptions: No Action atorvastatin 10 mg tablet 10 mg PO DAILY lisinopril 20 mg tablet 20 mg PO DAILY Patient Comments: TAKE 1 TABLET BY MOUTH TWICE DAILY celecoxib 100 mg capsule 100 mg PO DAILY Referrals Follow up/Referrals: Todd Hawk MD [Primary Care Provider] - See instructions Clinical Impressions Clinical Impression: Hypertensive urgency Discharge ED Provider: Eduardo Pollock [facility] [place] HPI General Chief complaint: Dizziness Stated complaint: dizzy, high BP Mode of Arrival: Ambulatory Source of Information: Patient Limitations: No Limitations Time Seen by Provider: 03/03/23 14:18 Description of Symptoms (Recalled from Triage Doc. by RN): PATIENT C/O DIZZINESS, HEADACHE, AND ELEVATED BLOOD PRESSURE. SHE REPORTS SHE TOOK HER BLOOD PRESSURE AT [facility] AND IT WAS 188/80. SHE IS ON BLOOD PRESSURE MEDICATION AND HAS TAKEN IT TODAY. HEENT Symptoms (Recalled from RN notes): Yes Resp Symptoms (Recalled from RN notes): No Skin Symptoms (Recalled from RN notes): No MS Symptoms (Recalled from RN notes): No Functional Status (Recalled from RN notes): WNL History of Present Illness Provider Complaint: Patient states that she has felt weak for the past few days. She woke up this am with a headache. Checked her blood pressure at home at it was 180/110. Went to [facility] to recheck it and the machine told her to seek medical care. She does have a history of HTN. States she took her blood pressure meds this morning - took 2 Lisinopril 20 mg at 10 am. She states she does have some dizziness. She's always dizzy, but seems a little worse. Headache is a little better. No visual changes. No chest pain. No shortness of breath. Very minimal swelling in ankles. Onset (ago): hour(s) (6) Location: head Relieving factors: none Exacerbating factors: none Associated symptoms: weakness Treatments prior to arrival: none Related Data Home Medications Medication Instructions Recorded Confirmed atorvastatin 10 mg tablet 10 mg PO DAILY 03/03/23 03/03/23 celecoxib 100 mg capsule 100 mg PO DAILY 03/03/23 03/03/23 lisinopril 20 mg tablet 20 mg PO DAILY 03/03/23 03/03/23 Allergies Allergy/AdvReac Type Severity Reaction Status Date / Time No Known Allergies Allergy Verified 12/29/22 13:27 Worker's Comp Is this a Worker's Comp case?: No [facility] Disclaimer: The information contained in this section may have been updated after the patient was seen, as this information can be updated by other users. Medical History (Updated 03/03/23 @ 14:27 by SHELBY Hood) Hematuria Hypertension Ovarian cyst Surgical History History of bilateral knee replacement Family History Other Brain cancer Family history of myocardial infarction No significant family history Social History Smoking Status: Never smoker alcohol intake: never substance use type: denies use current occupational status: other Travel in the last 8 weeks: None household members: none housing: house caffeine: Yes ROS Obtained: Yes All systems reviewed & no additional complaints except as documented Constitutional Constitutional: Reports system reviewed and no additional complaints, except as documented, Reports headache(s), Reports malaise and Reports weakness Eyes Eyes: Reports system reviewed and no additional complaints, except as documented ENT Ears, Nose, Mouth, and Throat: Reports system reviewed and no additional complaints, except as documented, Reports headache(s) and Reports vertigo Cardiovascular Cardiovascular: Reports system reviewed and no additional complaints, except as documented Respiratory Respiratory: Reports system reviewed and no addit
--- NOTE | 2023-03-03 14:20 | CT_ITS ---
PROCEDURE INFORMATION: Exam: CTA Neck With Contrast Exam date and time: 03/03/2023 5:00 PM Age: 83 years old Clinical indication: Headache; Additional info: Hypertensive, headaceh, imbalance TECHNIQUE: Imaging protocol: Computed tomographic angiography of the neck with contrast. Exam focused on the cervical segments of the vasculature. 3D rendering (Not supervised by radiologist): MIP and/or 3D reconstructed images were created by the technologist. Radiation optimization: All CT scans at this facility use at least one of these dose optimization techniques: automated exposure control; mA and/or kV adjustment per patient size (includes targeted exams where dose is matched to clinical indication); or iterative reconstruction. Contrast material: ISO 370; Contrast volume: 100 ml; Contrast route: INTRAVENOUS (IV); REPORTING DATA: Count of CT and Cardiac NM exams in prior 12 months: This patient has received [address] and 0 known cardiac nuclear medicine studies in the 12 months prior to the current study. COMPARISON: CT ANGIO NECK 05/29/2021 1:28 PM FINDINGS: Right common carotid artery: Small amount of atherosclerotic plaque at the right carotid bulb and proximal internal carotid artery without significant stenosis. No dissection or aneurysm. Right internal carotid artery: No stenosis of the extracranial segment. No dissection or occlusion. Right external carotid artery: No occlusion or stenosis of the origin. Left common carotid artery: Small amount of atherosclerotic plaque at the left carotid bulb and proximal internal carotid artery without significant stenosis. No dissection or aneurysm. Left internal carotid artery: No stenosis of the extra-cranial segment. No dissection or occlusion. Left external carotid artery: No occlusion or stenosis of the origin. Right vertebral artery: No stenosis. No dissection or occlusion. Left vertebral artery: No stenosis. No dissection or occlusion. Soft tissues: Unremarkable. Bones/joints: Multilevel degenerative changes in the cervical spine result in varying degrees of moderate to severe spinal canal stenosis and neuroforaminal narrowing. Notably there is severe spinal canal stenosis at C6-C7 and severe neuroforaminal narrowing on the left from C5-C7 and on the right at C4-C5. No evidence of acute osseous abnormality. IMPRESSION: 1. No evidence of critical stenosis, occlusion, dissection or aneurysm in the extracranial cerebral arteries. 2. Multilevel degenerative changes in the cervical spine result in varying degrees of moderate to severe spinal canal stenosis and neuroforaminal narrowing. 3. Concurrent head CTA reported separately. REFERENCES: NASCET CRITERIA. The degree of stenosis in the cervical segment of the internal carotid artery is based on NASCET criteria. Normal is no stenosis. Mild is less than 50% stenosis. Moderate is 50-69% stenosis. Severe is 70% to 99% stenosis. Total occlusion is no detectable patent lumen.
--- NOTE | 2023-03-03 14:20 | CT_ITS ---
PROCEDURE INFORMATION: Exam: CTA Head With Contrast, Arteriography Exam date and time: 03/03/2023 5:00 PM Age: 83 years old Clinical indication: Headache; Additional info: Hypertensive, headaceh, imbalance TECHNIQUE: Imaging protocol: Computed tomographic angiography of the head with contrast. Exam focused on the arteries. 3D rendering (Not supervised by radiologist): MIP and/or 3D reconstructed images were created by the technologist. Radiation optimization: All CT scans at this facility use at least one of these dose optimization techniques: automated exposure control; mA and/or kV adjustment per patient size (includes targeted exams where dose is matched to clinical indication); or iterative reconstruction. Contrast material: ISO 370; Contrast volume: 70 ml; Contrast route: INTRAVENOUS (IV); REPORTING DATA: Count of CT and Cardiac NM exams in prior 12 months: This patient has received [address] and 0 known cardiac nuclear medicine studies in the 12 months prior to the current study. COMPARISON: CT ANGIO HEAD 05/29/2021 1:28 PM FINDINGS: ANTERIOR CIRCULATION: Right internal carotid artery: Mild (less than 50%) stenosis in the right internal carotid artery secondary to atherosclerotic plaque. No occlusion, dissection or aneurysm. Right middle cerebral artery: No occlusion or significant stenosis. No aneurysm. Right anterior cerebral artery: No occlusion or significant stenosis. No aneurysm. Left internal carotid artery: Mild (less than 50%) stenosis in the left internal carotid artery secondary to atherosclerotic plaque. No occlusion, dissection or aneurysm. Left middle cerebral artery: No occlusion or significant stenosis. No aneurysm. Left anterior cerebral artery: Hypoplastic a1 segment of the left anterior cerebral artery, which is compensated via the anterior communicating artery. No occlusion or significant stenosis distally. No dissection or aneurysm. POSTERIOR CIRCULATION: Right vertebral artery: No occlusion or significant stenosis. No aneurysm. Left vertebral artery: No occlusion or significant stenosis. No aneurysm. Basilar artery: No occlusion or significant stenosis. No aneurysm. Right posterior cerebral artery: No occlusion or significant stenosis. No aneurysm. Left posterior cerebral artery: No occlusion or significant stenosis. No aneurysm. Brain: No abnormally enhancing brain lesion, mass effect, or midline shift. Cerebral ventricles: No hydrocephalus. Bones/joints: No acute calvarial or skull base fracture. Soft tissues: Unremarkable. IMPRESSION: 1. No evidence of critical stenosis, occlusion, or aneurysm in the intracranial cerebral arteries. 2. Mild (less than 50%) stenosis in the bilateral internal carotid arteries secondary to atherosclerotic plaque. 3. Concurrent neck CTA reported separately. PROCEDURE INFORMATION: Exam: CT Maxillofacial With Contrast Exam date and time: 03/03/2023 5:00 PM Clinical indication: Headache; Additional info: Hypertensive, headaceh, imbalance TECHNIQUE: Imaging protocol: Computed tomography of the face with contrast. COMPARISON: No relevant prior studies available. FINDINGS: Orbital cavities: Bilateral globes are intact. No evidence of retrobulbar hematoma or edema. Bilateral lens replacement. Globes and orbital structures are otherwise unremarkable. 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 No evidence of acute osseous abnormality. Pterygoid plates and lamina papyracea are intact. Paranasal sinuses: No air-fluid levels. Soft tissues: Unremarkable. IMPRESSION: 1. No acute findings. 2. Bilateral
--- NOTE | 2023-03-03 14:20 | CT_ITS ---
PROCEDURE INFORMATION: Exam: CT Head Without Contrast Exam date and time: 03/03/2023 4:57 PM Age: 83 years old Clinical indication: Dizziness; Additional info: Dizziness, light headedness TECHNIQUE: Imaging protocol: Computed tomography of the head without contrast. Radiation optimization: All CT scans at this facility use at least one of these dose optimization techniques: automated exposure control; mA and/or kV adjustment per patient size (includes targeted exams where dose is matched to clinical indication); or iterative reconstruction. REPORTING DATA: Count of CT and Cardiac NM exams in prior 12 months: This patient has received [address] and 0 known cardiac nuclear medicine studies in the 12 months prior to the current study. COMPARISON: CT HEAD/BRAIN WO CON 08/10/2022 1:46 PM FINDINGS: Brain: Global cerebral volume loss. No acute intracranial hemorrhage. No intra- or extra-axial fluid collection. No mass effect or midline shift. Periventricular and subcortical white matter hypodensities compatible with chronic hypertensive microvascular disease. No evidence of acute/subacute large vascular territory infarct. Nonspecific punctate calcification in the posterior left frontal lobe, unchanged from prior exam. Cerebral ventricles: No hydrocephalus. Paranasal sinuses: No air fluid levels in the visualized paranasal sinuses. Mastoid air cells: Visualized mastoid air cells are well aerated. Bones/joints: No acute calvarial or skull base fracture. Soft tissues: Unremarkable. IMPRESSION: 1. No evidence of acute intracranial abnormality. 2. White matter changes compatible with chronic hypertensive microvascular disease. 3. Global cerebral volume loss.
--- NOTE | 2023-03-03 14:25 | PC.NURSE ---
Pt sent over from [facility]. [employer] APRN s/w staff and Dr. Pollock regarding plan.
--- NOTE | 2023-03-03 14:38 | PC.NURSE ---
Dr. Pollock at bedside
--- NOTE | 2023-03-03 14:43 | HMH.EDGENADL ---
Discharge Plan Disposition Patient Disposition: Home, Self-Care Condition: Good Prescriptions Prescriptions: No Action atorvastatin 10 mg tablet 10 mg PO DAILY lisinopril 20 mg tablet 20 mg PO DAILY Patient Comments: TAKE 1 TABLET BY MOUTH TWICE DAILY celecoxib 100 mg capsule 100 mg PO DAILY Referrals Follow up/Referrals: Todd Hawk MD [Primary Care Provider] - See instructions Activity Restrictions/Add. Instructions Additional Instructions/Restrictions: You were evaluated in the emergency department today. Please take your blood pressure once in the morning and once at night, and write it down to keep a log of it. Present this to your primary care provider early next week. He can assess whether or not you need to make changes in her blood pressure medication. Return to the emergency department for any new or worsening symptoms. Clinical Impressions Clinical Impression: Hypertension Instructions Patient Instructions: DI for High Blood Pressure Discharge ED Provider: Peyton Schilling General Adult HPI <Eduardo Pollock MD - Last Filed: 03/03/23 15:14> General Chief complaint: Dizziness Stated complaint: dizzy, high BP Time Seen by Provider: 03/03/23 14:18 Mode of Arrival: Wheelchair Source of Information: Patient Limitations: No Limitations Description of Symptoms (Recalled from ER Triage Doc. by RN): Patient states her blood pressure has been elevated today and has been having dizzy spells off and on that occur when she ambulates. History of Present Illness HPI narrative: This is an 83-year-old female with history of hypertension, hyperlipidemia presenting with hypertension, headaches. Patient states that she felt unwell today, and took her blood pressure at home. 180 systolic, so went to [facility] to take her blood pressure in case her monitor at home was wrong. It was 190 systolic, told her to seek medical attention, states she came to the emergency department. Patient initially went to urgent care, but she states that she is having dizziness, intermittent headaches (not present on arrival), falling to the right side for approximately 1 year. Headaches have been going on for approximately a week. No trauma, or neurologic deficits acutely. Denies chest pain, shortness of breath, unilateral deficits, abdominal pain, vomiting, or any other concerns. Onset (ago): hour(s) (6) Location: head Relieving factors: none Exacerbating factors: none Associated symptoms: weakness Treatments prior to arrival: none Related Data Home Medications Medication Instructions Recorded Confirmed atorvastatin 10 mg tablet 10 mg PO DAILY 03/03/23 03/03/23 celecoxib 100 mg capsule 100 mg PO DAILY 03/03/23 03/03/23 lisinopril 20 mg tablet 20 mg PO DAILY 03/03/23 03/03/23 Allergies Allergy/AdvReac Type Severity Reaction Status Date / Time No Known Allergies Allergy Verified 12/29/22 13:27 PFS <Eduardo Pollock MD - Last Filed: 03/03/23 15:14> [facility] Disclaimer: The information contained in this section may have been updated after the patient was seen, as this information can be updated by other users. Medical History (Updated 03/03/23 @ 18:14 by Peyton Schilling DO) Hematuria Hypertension Ovarian cyst Surgical History History of bilateral knee replacement Family History Other Brain cancer Family history of myocardial infarction No significant family history Social History Smoking Status: Never smoker alcohol intake: never substance use type: denies use current occupational status: other Travel in the last 8 weeks: None household members: none housing: house caffeine: Yes <Eduardo Pollock MD - Last Filed: 03/03/23 15:14> ROS Obtained: Yes All systems reviewed & no additional complaints except as documented
[2023-03-03 14:45] LABS: Basophils % 0.8 % (0.1-2.0); Eosinophils # 0.2 K/mm3 (0.0-0.4); Eosinophils % 3.7 % (0.1-12.0); Hematocrit 41.5 % (37.0-47.0); Hemoglobin 14.1 g/dL (12.2-16.2); Lymphocytes # 1.7 K/mm3 (0.7-4.5); Lymphocytes % 31.8 % (10-50); Mean Corpuscular Volume 93.9 fl (81-99); Mean Platelet Volume 9.8 fl (7.4-10.4); Monocytes # 0.3 K/mm3 (0.1-1.0); Monocytes % 5.2 % (1.7-9.3); Neutrophils # 3.1 K/mm3 (1.8-7.8); Neutrophils % 58.4 % (37.0-80.0); Platelet Count 176 K/mm3 (142-424); Red Blood Count 4.42 M/mm3 (4.20-5.40); Red Cell Distribution Width 12.8 % (11.5-17.5); White Blood Count 5.3 K/mm3 (4.8-10.8)
[2023-03-03 14:55] LABS: Activated Partial Thrombo Time 24.8 seconds (22.8-30.6); INR 0.93 (0.9-1.1); Prothrombin Time 10.1 seconds (10.1-12.5)
[2023-03-03 15:01] LABS: Alanine Aminotransferase 16 U/L (12-78); Albumin Level 4.2 g/dl (3.5-5.0); Albumin/Globulin Ratio 1.4 (1.1-1.8); Alkaline Phosphatase 65 U/L (38-126); Anion Gap 13.2 mEq/L (5-15); Aspartate Amino Transferase 33 U/L (14-36); Bilirubin,Total 0.6 mg/dl (0.2-1.3); Blood Urea Nitrogen 19 mg/dl (7-17); Calcium 9.3 mg/dl (8.4-10.2); Carbon Dioxide 26 mmol/L (22.0-30.0); Chloride 103 mmol/L (98-107); Creatinine Clearance Estimated 43 mL/min (50-200); Estimated Glomerular Filt Rate 80 ml/min (>60); GFR (African American) 96 ML/MIN (>60); Glucose 93 mg/dl (74-100); Potassium 4.2 mmoL/L (3.5-5.1); Sodium 138 mmol/L (136-145); Total Protein,Serum 7.2 g/dl (6.3-8.2)
[2023-03-03 15:15] LABS: Troponin I < 0.01 ng/ml (0.00-0.034)
[2023-03-03 15:34] LABS: Appearance,Urine CLEAR (Clear); Bilirubin,Urine Negative (Negative); Blood, Urine TRACE-I (Negative); Color,Urine YELLOW (Yellow); Glucose,Urine (UA) Negative (Negative); Ketones,Urine Negative (Negative); Leukocyte Esterase,Urine Negative (Negative); Microscopic, Urine URINE MICROSCOPIC (MICROSCOPIC); Nitrate,Urine Negative (Negative); PH,Urine 6.5 (5.0-8.5); Protein,Urine Negative (Negative); Urobilinogen,Urine 0.2 EU/dl (0.2)
[2023-03-03 15:49] LABS: RBC,Urine Occasional #/hpf (0-3)
--- NOTE | 2023-03-03 15:49 | PC.NURSE ---
PT GOING TO CT
--- NOTE | 2023-03-03 16:57 | PC.NURSE ---
PT AMBULATED BACK TO THE [facility]
--- NOTE | 2023-03-03 17:26 | PC.NURSE ---
RADIOLOGY CALLING [facility] TO CHECK ON READING
== END 2023-03-03 18:30 | disposition home or self-care (01) ==
LOC: UTC 13:39 → ER 14:21
PROVIDERS: Emergency Medicine; Emergency Provider Emergency Medicine; PCP Internal Medicine Adolescent Medicine
DX: I16.0 Hypertensive urgency (principal); R51.9 Headache, unspecified; R42 Dizziness and giddiness; I10 Essential (primary) hypertension
CPT/HCPCS: 70450; 70496; 70498; 80053; 81001; 84484; 85025; 85610; 85730; 93005; 96374; 99285; Q9967

== ENCOUNTER → 2023-03-07 08:26 | Outpatient (CLI) | payer MEDICARE, BC, SELFPAY ==
--- NOTE | 2023-03-07 | CA_ITS ---
APPROVED REPORT EXAM: Comprehensive 2D, Doppler, and color-flow Echocardiogram Project Crew Worker: Ivelisse Mitchell, RT(R) Ht: 5 ft 4 in Wt: 145lbs BSA: 1.71 BP: 160/82 mmHg Indications: SOA, seen on echo 02/24/21, HTN, hyperlipidemia 2D Dimensions IVSd 1.25 cm F: 0.6-1.0 LVEF (Visual) 54.70 % PWd 0.90 cm F: 0.6 - 1.0 LVDd 3.70 cm F: 3.9 - 5.3 LVDs 2.67 cm F: 2.2 - 3.5 Left Atrium 3.53 cm F: 2.7 - 3.8 LVOT 2.01 cm (M/F) 1.5-2.5 M-Mode Dimensions LA Diam 3.89 cm (1.9-4.0) Ao Diam 2.51 cm (2.0-3.7) LV Diastology E Decel Time 293.00 (160-240 msec) E/A Ratio 0.8 MED E' 4.70 (< 7 cm/sec) E'/MED E' Ratio 26.32 (>14) LAT E' 5.40 (<10 cm/sec) E/LAT E' Ratio 22.91 (>14) Aortic Valve LVOT Max 124.00 (70-110 cm/s) LVOT VTI 25.48 cm AoV Peak Jaun. 289.00 (50-130 cm/s) AO Peak GR. 33.60 mmHg AO Mean GR. 16.40 (<5 mmHg) AO VTI 59.38 (18-25 cm) ARIEL (VTI) 1.36 (2.5-4.5 cm2) Mitral Valve MV E Max Jaun. 124.00 (40-130 cm/s) MV A Velocity 164.00 (40-130 cm/s) E/A Ratio 0.76 MV Decel. Time 293.00 (160-240 ms) MV PHT 86.00 ms Tricuspid Valve TR P. Velocity 241.00 cm/s RAP Estimate 10.00 mmHg RVSP 33.30 mmHg Left Ventricle The left ventricle is normal size. The left ventricular systolic function is normal. The left ventricular ejection fraction is within the normal range. There is increased LV wall thickness. There is normal LV segmental wall motion. Grade 2 diastolic dysfunction is present. LVEF is 60%. Right Ventricle The right ventricle is mildly dilated. The right ventricular systolic function is normal. Atria Left atrium is severely dilated. Right atrium is mildly dilated. There is no Doppler evidence of interatrial shunt. Aortic Valve The aortic valve is moderately thickened. Moderate aortic stenosis. Peak velocity 3.0 m/s. Mean AV gradient 17 mmHg. Max AV gradient 36 mmHg. ARIEL by continuity equation is 1.4 cm2. Moderate aortic regurgitation. Mitral Valve Moderate mitral annular calcification. The mitral valve leaflets are thickened. No evidence of mitral valve stenosis. Mean MV gradient 4 mmHg. Mild mitral regurgitation. Tricuspid Valve The tricuspid valve leaflets are thin and pliable. Mild tricuspid regurgitation. RVSP is 25-30 mmHg. Pulmonic Valve The pulmonary valve is normal in structure. Trace pulmonic regurgitation. Great Vessels The aortic root is normal in size. The ascending aorta is not well visualized. IVC is normal in size and collapses >50% with inspiration. Pericardium There is no pericardial effusion. Other Information Study Quality: Technically Difficult Conclusion Technically difficult study due to poor acoustic windows. Normal biventricular systolic function. Mildly dilated RV. Biatrial dilatation. Moderate , moderate AI. Mild MR. Mild TR. Electronically signed by : Inés Evans MD 03/13/2023 09:29:19
== END ==
PROVIDERS: PCP Internal Medicine Adolescent Medicine; Visit Provider Nurse Practitioner Family
DX: I10 Essential (primary) hypertension (principal); I35.0 Nonrheumatic aortic (valve) stenosis; R06.09 Other forms of dyspnea
CPT/HCPCS: 93306

== ENCOUNTER 2023-04-03 12:07 | Emergency (ER) | payer MEDICARE, BC, SELFPAY ==
[2023-04-03 12:15] VITALS: BP 140/66; PULSE 94; RESP 18; TEMP 36.9; O2SAT 97; BMI 24.6
--- NOTE | 2023-04-03 12:19 | EXP.UTC ---
Discharge Plan Disposition Patient Disposition: Home, Self-Care Condition: Good Prescriptions Prescriptions: New amoxicillin [amoxicillin] 875 mg tablet 875 mg PO Q12H Qty: 20 0RF benzonatate [benzonatate] 100 mg capsule 100 mg PO TIDP PRN (Reason: Cough) Qty: 30 0RF methylprednisolone 4 mg Tablets,Dose Pack 4 mg PO DIRECTED Qty: 21 0RF guaifenesin [Mucinex] 600 mg tablet extended release 12hr 600 - 1,200 mg PO BIDP PRN (Reason: Congestion) Qty: 30 0RF No Action amlodipine 5 mg tablet 5 mg PO DAILY Patient Comments: TAKE 1 TABLET BY MOUTH ONCE DAILY Arexvy (PF) 120 mcg/0.5 mL suspension for reconstitution 120 mcg IM MONTHLY atorvastatin 10 mg tablet 10 mg PO DAILY lisinopril 20 mg tablet 20 mg PO DAILY Patient Comments: TAKE 1 TABLET BY MOUTH TWICE DAILY celecoxib 100 mg capsule 100 mg PO DAILY Referrals Follow up/Referrals: Todd Hawk MD [Primary Care Provider] - See instructions Activity Restrictions/Add. Instructions Additional Instructions/Restrictions: Drink plenty of fluids. Take tylenol or ibuprofen for pain or fever. Take the medications as directed. Follow up with your regular doctor. GO TO THE ER FOR ANY WORSENING SYMPTOMS Don't start the oral steroids until tomorrow, since you had the shot here today. Clinical Impressions Clinical Impression: Acute bronchitis, Acute sinusitis Instructions Patient Instructions: DI for Sinusitis, DI for Acute Bronchitis Discharge ED Provider: Hunter Murry [facility] General Stated complaint: cough,cold Time Seen by Provider: 04/03/23 12:19 History of Present Illness Provider Complaint: She states that for the past 4 days she has had a worsening sinus and chest congestion. She states that she usually gets bronchitis this time of the year and that is what she feels like is happening now. She denies any fever/chills/body aches. Related Data Home Medications Medication Instructions Recorded Confirmed atorvastatin 10 mg tablet 10 mg PO DAILY 03/03/23 04/03/23 celecoxib 100 mg capsule 100 mg PO DAILY 03/03/23 04/03/23 lisinopril 20 mg tablet 20 mg PO DAILY 03/03/23 04/03/23 RSVPreF3 antigen-AS01E 120 mcg IM MONTHLY 03/30/23 04/03/23 adjuvant(PF) 120 mcg/0.5 mL IM suspension, kit (Arexvy (PF)) amlodipine 5 mg tablet 5 mg PO DAILY 03/30/23 04/03/23 Previous Rx's Medication Instructions Recorded amoxicillin 875 mg tablet 875 mg PO Q12H #20 tabs 04/03/23 benzonatate 100 mg capsule 100 mg PO TIDP PRN Cough #30 caps 04/03/23 guaifenesin 600 mg tablet, 600 - 1,200 mg PO BIDP PRN 04/03/23 extended release 12 hr (Mucinex) Congestion #30 tabs methylprednisolone 4 mg tablets in 4 mg PO DIRECTED #21 tabs 04/03/23 a dose pack Allergies Allergy/AdvReac Type Severity Reaction Status Date / Time No Known Allergies Allergy Verified 04/03/23 12: [facility] Disclaimer: The information contained in this section may have been updated after the patient was seen, as this information can be updated by other users. Medical History (Updated 04/03/23 @ 13:27 by Hunter Murry APRN) Hematuria Hypertension Ovarian cyst Surgical History History of bilateral knee replacement Family History Other Brain cancer Family history of myocardial infarction No significant family history Social History Smoking Status: Never smoker alcohol intake: never substance use type: denies use current occupational status: other Travel in the last 8 weeks: None household members: none housing: house caffeine: Yes ROS Obtained: Yes All systems reviewed & no additional complaints except as documented Constitutional Constitutional: Reports poor appetite Eyes Eyes: Reports system reviewed and no additional co
[2023-04-03 13:38] VITALS: BP 140/66; PULSE 94; RESP 18; TEMP 36.9; O2SAT 97
== END 2023-04-03 13:30 | disposition home or self-care (01) ==
PROVIDERS: Emergency Provider Nurse Practitioner Family; PCP Internal Medicine Adolescent Medicine
DX: J20.9 Acute bronchitis, unspecified (principal); J01.90 Acute sinusitis, unspecified; R05.9 Cough, unspecified; R09.81 Nasal congestion; R09.89 Other specified symptoms and signs involving the circulatory and respiratory systems; I10 Essential (primary) hypertension
CPT/HCPCS: 96372; 99212; 99214; G0463; J0696

== ENCOUNTER 2023-06-19 10:12 | Emergency (ER) | payer MEDICARE, BC, SELFPAY ==
[2023-06-19 11:11] VITALS: BP 135/90; PULSE 93; RESP 20; TEMP 37.2; O2SAT 97; BMI 24.9
--- NOTE | 2023-06-19 11:15 | ED_ITS ---
Discharge Plan Disposition Patient Disposition: Home, Self-Care Condition: Good Prescriptions Prescriptions: No Action lisinopril 20 mg tablet 20 mg PO DAILY Patient Comments: TAKE 1 TABLET BY MOUTH TWICE DAILY celecoxib 100 mg capsule 100 mg PO DAILY Referrals Follow up/Referrals: Todd Hawk MD [Primary Care Provider] - See instructions Activity Restrictions/Add. Instructions Additional Instructions/Restrictions: *Monitor Temp, Over the counter Motrin or Tylenol as directed/as needed Tylenol every 4 hours and Motrin every 6 hours (as long as your family doctor has told you that you can take it) for fever or pain. and straight to ER if unable to lower temp less than 101.0 after medication given *Warm salt water gargles may help to soothe the throat *Throat Lozenges? *Warm fluids like tea with honey may help to soothe the throat? *Sleep elevated *Humidifier/Vaporizer Follow up IMMEDIATELY for new or worsening symptoms or no Noticeable improvement over the next 48-72 hours. 911 for difficulty breathing or swallowing Clinical Impressions Clinical Impression: Acute bronchitis Qualifiers: Bronchitis organism: unspecified organism Qualified Code(s): J20.9 - Acute bronchitis, unspecified Sinusitis Qualifiers: Sinusitis location: unspecified location Chronicity: unspecified Qualified Code(s): J32.9 - Chronic sinusitis, unspecified Instructions Patient Instructions: DI for Sinusitis, Sinusitis Discharge ED Provider: Winifred Griffin [facility] General Stated complaint: sore throat Mode of Arrival: Ambulatory Source of Information: Patient Limitations: No Limitations Time Seen by Provider: 06/19/23 11:15 Description of Symptoms (Recalled from Triage Doc. by RN): PATIENT C/O COUGH, SORE THROAT, AND CHEST HURTS WHEN COUGHING SINCE LAST NIGHT HEENT Symptoms (Recalled from RN notes): Yes Resp Symptoms (Recalled from RN notes): Yes Skin Symptoms (Recalled from RN notes): No MS Symptoms (Recalled from RN notes): No Functional Status (Recalled from RN notes): WNL History of Present Illness Provider Complaint: Patient states that she started with sinus congestion and pressure several days ago then last night started with scatchy throat and cough states that she knew she had to get in and get a couple shots and some medication or it would get worse into her chest area Related Data Home Medications Medication Instructions Recorded Confirmed celecoxib 100 mg capsule 100 mg PO DAILY 03/03/23 06/19/23 lisinopril 20 mg tablet 20 mg PO DAILY 03/03/23 06/19/23 Allergies Allergy/AdvReac Type Severity Reaction Status Date / Time No Known Allergies Allergy Verified 04/03/23 12:23 Worker's Comp Is this a Worker's Comp case?: [facility] Disclaimer: The information contained in this section may have been updated after the patient was seen, as this information can be updated by other users. Medical History (Updated 06/19/23 @ 11:47 by Winifred Griffin APRN) Hematuria Hypertension Ovarian cyst Surgical History History of bilateral knee replacement Family History Other Brain cancer Family history of myocardial infarction No significant family history Social History Smoking Status: Never smoker alcohol intake: never substance use type: denies use current occupational status: other Travel in the last 8 weeks: None household members: none housing: house caffeine: Yes ROS Obtained: Yes All systems reviewed & no additional complaints except as documented and Yes Systems reviewed as appropriate & no additional complaints except as documented Constitutional Constitutional: Reports system reviewed and no additional complaints, except as documented and Reports as per HPI ENT Ears, Nose, Mouth, and Throat: Reports system reviewed and no additional complaints, except as documented, Reports as per HPI, Reports nasal congestion, Reports sinus pressure and Reports sore throat Cardiovascular Cardiovascular: Reports system reviewed and no additional complaints, except as documented and Reports as per HPI Respiratory Respiratory: Reports system reviewed and no additional complaints, except as documented, Reports as per HPI, Denies shortness of breath, Reports chest congestion and Reports cough Gastrointestinal Gastrointestingal: Reports system reviewed and no additional complaints, except as documented and as per HPI Physical Exam General General appearance: alert and in no apparent distress ENT ENT exam: Present mucous membranes moist Expanded ENT Exam Nose exam: Present sinus tenderness Throat exam: Present other (Pharyngeal erythema noted with PND) Respiratory Respiratory exam: Present normal lung sounds bilaterally; Absent respiratory distress or wheezes Cardiovascular Cardiovascular exam: Present regular rate, normal rhythm and normal heart sounds Abdominal Exam Abdominal exam: Present soft and normal bowel sounds; Absent distention or tenderness Neurological Exam Neurological exam: Present alert, oriented X3 and normal gait Medical Decision Making Ralph Inquiry Pt receiving controlled substance: No Ralph was queried for this patient: No Vital Signs: 06/19/23 11:11 Temperature 98.9 F Temperature Source Oral Pulse Rate [Right Brachial] 93 H Respiratory Rate 20 Blood Pressure [Right Arm] 135/90 Blood Pressure Mean [Right Arm] 105 Blood Pressure Source [Right Arm] Automatic Cuff Blood Pressure Position [Right Arm] Sitting 02 Sat by Pulse Oximetry 97 Oxygen Delivery Method Room Air
[2023-06-19] MEDS: METHYLPREDNISOLONE SOD SUCC 125MG VIAL 125 MG IM (11:32)
[2023-06-19] MEDS: LIDOCAINE 1% 5ML PF VIAL IM (11:32)
[2023-06-19] MEDS: cefTRIAXone 1GM VIAL 1 GM IM (11:32)
[2023-06-19 11:48] VITALS: BP 135/90; PULSE 93; RESP 20; TEMP 37.2; O2SAT 97
== END 2023-06-19 11:52 | disposition home or self-care (01) ==
PROVIDERS: Emergency Provider Nurse Practitioner; PCP Internal Medicine Adolescent Medicine
DX: J20.9 Acute bronchitis, unspecified (principal); J01.90 Acute sinusitis, unspecified; R07.0 Pain in throat; R09.81 Nasal congestion; R05.9 Cough, unspecified; I10 Essential (primary) hypertension
CPT/HCPCS: 96372; 99212; 99214; G0463; J0696

== ENCOUNTER 2023-07-06 18:38 | Outpatient (CLI) | payer MEDICARE, BC, SELFPAY ==
--- NOTE | 2023-07-06 18:41 | MR_ITS ---
PROCEDURE INFORMATION: Exam: MR Head Without Contrast Exam date and time: 07/06/2023 6:49 PM Age: 83 years old Clinical indication: Walking, difficulty; Additional info: Ataxia TECHNIQUE: Imaging protocol: Magnetic resonance imaging of the head without contrast. COMPARISON: CT ANGIO HEAD 03/03/2023 5:00 PM FINDINGS: Brain: No acute infarct. No hemorrhage. Unremarkable white matter for age. No edema. Unchanged mild volume loss of the brain. Cerebral ventricles: No ventriculomegaly. Bones/joints: Unremarkable. Paranasal sinuses: No significant inflammation. No fluid levels. Mastoid air cells: No significant inflammation. Orbital cavities: Bilateral lens replacements. Soft tissues: Unremarkable. IMPRESSION: No acute intracranial abnormality.
== END 2023-07-06 23:59 ==
PROVIDERS: PCP Internal Medicine Adolescent Medicine; Visit Provider Internal Medicine Adolescent Medicine
DX: R27.0 Ataxia, unspecified (principal)
CPT/HCPCS: 70551

== ENCOUNTER 2023-09-12 14:00 | Outpatient (RCR) | payer MEDICARE, BC, SELFPAY ==
--- NOTE | 2023-07-13 14:48 | HMH.PTOPEV ---
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 PMH: heart valve insufficiency, right hip OA, B/L TKA's New diagnosis of cancer in past 12 No months? Chief Complaint Pain,Gives out/Unstable, Weakness,Decreased Coordination Symptom Type Ache,Dull Symptoms Relieved By Rest/Positioning Symptoms Aggravated By Standing,Physical Activity, Walking Prior Functional Limitations Housework,Standing,Walking Current Functional Limitations Housework,Standing,Walking Symptom Description Intermittent Level of pain today (0-10) 0 Pain scale - at its best (0-10) 0 Pain scale - at its worst (0-10) 3 Hip/Knee Eval Gait Observation General Gait Pattern Observation Antalgic Gait,Ataxic Gait Assistive Device Assistive Devices None / NA MMT bilateral Hip Flexion Strength Grade 4- Good- Hip Abduction Strength Grade 4- Good- Hip Adduction Strength Grade 4 Good Hip Extension Strength Grade 4- Good- Knee Extension Strength Grade 4 Good Knee Flexion Strength Grade 4- Good- Ankle/Foot Eval MMT Ankle Dorsiflexion Strength Grade 4 Good Tinetti Sitting Balance Sitting Balance Steady, safe Arising from Chair Ability to Arise Able, uses arms to help Attempts to Arise Arises on 1st attempt Standing Balance Immediate Standing Balance Steady w/o support Standing Balance Unsteady Nudged Response Begins to fall Standing with Eyes Closed Unsteady Turning Step Pattern Turning 360 Degrees Continuous steps Stability Turning 360 Degrees Unsteady, grabs/staggers Sitting Down Sitting Down Uses arms or unsteady Gait and Step Initiation of Gait No hesitancy Right Foot Step Length Does pass stance foot Right Foot Step Height Does not clear floor Left Foot Step Length Does pass stance foot Left Foot Step Height Does not clear floor Step Description Step Symmetry Step length appears equal Step Continuity Steps appear continuous Gait Description Path Description Mild/moderate deviation Trunk Description No sway but posturing Walking Stance Heels together Scoring and Interpretation Tinetti Composite Score (points) 16 Outpatient Therapy Assessment Impairments Problems/Impairmments Impaired Strength,Impaired Endurance,Impaired Gait Pattern,Impaired Walking, Impaired Standing,Impaired Household Care,Impaired Tinnetti Score,Subjective C/O Pain,Impaired Self Care/Self Management Prognosis Rehab Potential Good Clinical Impression Consistent with Diagnosis Yes Short Term Goals Number of Weeks 4 Increase Strength Yes: 4/5 B/L LE'S Increase Ability to Walk Yes: 10MIN Increase Ability to Stand Yes: 10MIN Improve Ability For Household Care Yes: 10MIN Increase Tinnetti Score Yes: 20-22 Decrease Subjective C/O Pain Yes: 2/10 W/ABOVE ACTIVITIES Patient to be Ind w/ HEP Yes [employer] Work[employer] Goals Number of Weeks 10-12 Increase Strength Yes: 4+-5/5 B/L LE'S Improve Gait Pattern without Assistive Yes: WFL ON LEVEL TERRAIN Device Increase Ability to Walk Yes: 15MIN Increase Ability to Stand Yes: 15MIN Improve Ability For Household Care Yes: 15MIN Increase Tinnetti Score Yes: 24-26 Decrease Subjective C/O Pain Yes: 0-1/10 W/ABOVE ACTIVITIES Patient to be Ind w/ Advanced HEP Yes Outpatient Therapy Plan of Care Treatment Plan May Include Therapeutic Exercise Including Home Yes Exercise Program Manual Therapy Techniques Yes Neuromuscular Re-education Yes Therapeutic Activities to Return to Yes Previous Functional/Work Level Gait Training Yes ADL/Self Care Education Yes Thermal Modalities Yes Electrical Stimulation Yes Eval/Re-Eval Yes Frequency Times per week 2-3 Duration Number of Weeks 10-12 Addendums This patient is a candidate for social No or vocational rehab? Patient/Guardian verbally acknowledges Yes understanding of treatment program and consents to further treatment? Patient/Guardian verbally acknowledges Yes understanding of diagnosis, prognosis and goals for treatment? Eval Complexity PT Charges 00738 - Moderate Complexity Shoulder/Elbow Eval Shoulder Objective Measurements Elbow Objective Measurements PHYSICIAN CERTIFICATION: I certify the specified therapy services for Lauren Brown are required, authorized, and reviewed every 30 days.
--- NOTE | 2023-08-16 14:14 | HMH.RHREAS ---
Rehab Reassessment Rehab OP Re-assessment Start: 07/13/23 14:13 Freq: Status: Active Protocol: Document 08/16/23 14:00 MELANYRONDA (Rec: 08/16/23 14:13 MELANYRONDA [id number]) E-signed By Kg Valencia, PT Tinetti Sitting Balance Sitting Balance Steady, safe Arising from Chair Ability to Arise Able, w/o using arms Attempts to Arise Arises on 1st attempt Standing Balance Immediate Standing Balance Steady w/o support Standing Balance Narrow stance w/o support Nudged Response Staggers, catches self Standing with Eyes Closed Unsteady Turning Step Pattern Turning 360 Degrees Continuous steps Stability Turning 360 Degrees Steady Sitting Down Sitting Down Safe, steady Gait and Step Initiation of Gait No hesitancy Right Foot Step Length Does pass stance foot Right Foot Step Height Completely clears floor Left Foot Step Length Does pass stance foot Left Foot Step Height Completely clears floor Step Description Step Symmetry Step length not equal Step Continuity Steps appear continuous Gait Description Path Description Straight Trunk Description No sway Walking Stance Heels apart Scoring and Interpretation Tinetti Composite Score (points) 24 Interpretation of Scores At risk for falls (19-24) Rehab Re-assessment Subjective Subjective Pt reports improved endurance for household activities since I eval, 'I can be up for at least 15 minutes.' Pt reports 'I feel like my balance is better, but there's things you all have me do in here( therapy clinic) that are still really hard.' Objective Objective Notes TINETTI: 24 VS 16 ON I EVAL MMT: B/L HIP FLX 4/5, B/L HIP ABD 4/5, B/L HIP ADD 4-4+/5, B /L HIP EXT 4--4/5, B/L KNEE EXT 4+/5, B/L KNEE FLX 4+/5 Assessment Progress Assessment Progressing as Expected Assessment Notes SIGNIFICANT IMPROVEMENTS IN STRENGTH AND TINETTI SCORE Patient goals met STG'S 09/28 LTG'S 08/29 Goals Not Met STG'S 04/30, LTG'S 06/29 Plan Plan Pt to continue w/skilled P.T. to make further improvements in strength, gait, and balance to allow for optimal function Frequency of Therapy 2-3x/wk Duration of therapy 4-6WKS Time and Billing Re-Eval Time 12 Re-Eval Billing Units 1 PHYSICIAN CERTIFICATION: I certify the specified therapy services for Lauren J Kevin are required, authorized, and reviewed every 30 days.
== END 2023-09-12 15:00 | disposition home or self-care (01) ==
LOC: PT 14:00
PROVIDERS: Visit Provider Internal Medicine Adolescent Medicine
DX: R27.0 Ataxia, unspecified (principal)
CPT/HCPCS: 97110; 97112; 97163; 97164; 97530

== ENCOUNTER 2023-09-28 19:21 | Emergency (ER) | payer MEDICARE, BC, SELFPAY ==
[2023-09-28 19:30] VITALS: BP 187/80; PULSE 89; RESP 20; TEMP 36.8; O2SAT 97; BMI 24.0
--- NOTE | 2023-09-28 19:37 | EXP.UTC ---
Discharge Plan Disposition Patient Disposition: Home, Self-Care Condition: Good Prescriptions Prescriptions: New amoxicillin 500 mg tablet 500 mg PO TID 10 Days Qty: 30 0RF benzonatate 100 mg capsule 100 mg PO TIDP PRN (Reason: Cough) Qty: 30 0RF prednisone 10 mg tablet 10 mg PO BID 5 Days Qty: 10 0RF No Action lisinopril 20 mg tablet 20 mg PO DAILY Patient Comments: TAKE 1 TABLET BY MOUTH TWICE DAILY celecoxib 100 mg capsule 100 mg PO DAILY alprazolam 0.25 mg tablet 0.25 mg PO DAILY Referrals Follow up/Referrals: Todd Hawk MD [Primary Care Provider] - See instructions Clinical Impressions Clinical Impression: Pharyngitis Instructions Patient Instructions: DI for Pharyngitis/Tonsillopharyngitis -- Adult Discharge ED Provider: Hunter Murry [facility] General Stated complaint: sore throat Time Seen by Provider: 09/28/23 19:37 History of Present Illness Provider Complaint: She states that she has had sore throat for the past 3 days. Related Data Home Medications Medication Instructions Recorded Confirmed celecoxib 100 mg capsule 100 mg PO DAILY 03/03/23 09/28/23 lisinopril 20 mg tablet 20 mg PO DAILY 03/03/23 09/28/23 alprazolam 0.25 mg tablet 0.25 mg PO DAILY 09/28/23 09/28/23 Previous Rx's Medication Instructions Recorded amoxicillin 500 mg tablet 500 mg PO TID 10 days #30 tabs 09/28/23 benzonatate 100 mg capsule 100 mg PO TIDP PRN Cough #30 caps 09/28/23 prednisone 10 mg tablet 10 mg PO BID 5 days #10 tabs 09/28/23 Allergies Allergy/AdvReac Type Severity Reaction Status Date / Time No Known Allergies Allergy Verified 06/28/23 13:08 [facility] Disclaimer: The information contained in this section may have been updated after the patient was seen, as this information can be updated by other users. Medical History (Updated 09/28/23 @ 19:52 by Hunter Murry APRN) COPD (chronic obstructive pulmonary disease) History of gastroesophageal reflux (GERD) Hyperlipidemia Hypertension Ovarian cyst Hematuria Surgical History (Updated 09/28/23 @ 19:40 by Sydnee Cisneros RN) History of cholecystectomy History of tonsillectomy History of appendectomy History of bilateral knee replacement Family History Other Brain cancer Family history of myocardial infarction No significant family history Social History Smoking Status: Never smoker alcohol intake: never substance use type: denies use current occupational status: other Travel in the last 8 weeks: None household members: none housing: house caffeine: Yes ROS Obtained: Yes All systems reviewed & no additional complaints except as documented Constitutional Constitutional: Reports chills and Reports fever(s) Eyes Eyes: Denies eye discharge ENT Ears, Nose, Mouth, and Throat: Reports as per HPI Cardiovascular Cardiovascular: Denies chest pain Respiratory Respiratory: Denies chest congestion and Reports cough Gastrointestinal Gastrointestingal: Reports nausea; Denies abdominal pain, constipation, cramping, diarrhea or vomiting Musculoskeletal Musculoskeletal: Denies arthralgias Integumentary/Breasts Skin/Breast: Denies rash Neurologic Neurologic: Denies paresthesias Physical Exam General General appearance: alert and in no apparent distress Head Head exam: atraumatic, normocephalic and normal inspection Eye Eye exam: Present normal appearance, PERRL and EOMI ENT ENT exam: Present mucous membranes moist and normal external ear exam Expanded ENT Exam TM/Canal exam: Bilateral TM: erythema and bulging Nose exam: Absent sinus tenderness Mouth exam: Present normal external inspection; Absent drooling Teeth exam: Present normal inspection Throat exam: Present tonsillar erythema, tonsillomegaly and tonsillar exudate Neck Neck exam: Present normal inspection, full ROM and trachea midline; Absent tenderness, meningismus or lymphadenopathy Chest Chest inspection: Present normal inspection and symmetric chest wall rise; Absent tenderness Respiratory Respiratory exam: Present normal lung sounds bilaterally; Absent respiratory distress, wheezes, stridor or accessory muscle use Cardiovascular Cardiovascular exam: Present regular rate and normal rhythm; Absent systolic murmur or diastolic murmur Abdominal Exam Abdominal exam: Present soft and normal bowel sounds; Absent distention, tenderness, guarding, rebound or rigidity Extremities Exam Extremities exam: Present normal inspection and normal capillary refill; Absent calf tenderness Back Exam Back exam: Present normal inspection and full ROM; Absent tenderness, CVA tenderness (R) or CVA tenderness (L) Neurological Exam Neurological exam: Present alert, oriented X3 and CN II-XII intact Psychiatric Psychiatric exam: Present normal affect and normal mood Skin Skin exam: Present warm, dry, intact and normal color Medical Decision Making Medical Records Medical records reviewed: No I reviewed the patient's medical records. Ralph Inquiry Pt receiving controlled substance: No Lab Data Lab results reviewed: Yes I reviewed the patient's lab results.
[2023-09-28 19:43] LABS: UTC Strep Screen (Rapid) Negative (Negative)
[2023-09-28 19:45] VITALS: BP 187/80; PULSE 89; RESP 20; TEMP 36.8; O2SAT 97
== END 2023-09-28 19:57 | disposition home or self-care (01) ==
PROVIDERS: Emergency Provider Nurse Practitioner Family; PCP Internal Medicine Adolescent Medicine
DX: J02.9 Acute pharyngitis, unspecified (principal); R50.9 Fever, unspecified
CPT/HCPCS: 87880; 99212; 99214; G0463

== ENCOUNTER 2024-02-11 19:12 | Emergency (ER) | payer MEDICARE, BC, SELFPAY ==
--- NOTE | 2024-02-11 | ECG_ITS ---
APPROVED REPORT Exam: Resting ECG HR:92 bpm ECG Measurements Heart Rate 92 AXES NM 173 P 74 QRSd 93 QRS 77 QT 357 T 55 QTc 407 Conclusion SINUS RHYTHM VOLTAGE CRITERIA FOR LVH [MEETS CRITERIA IN ONE OF: R(aVL), S(V1), R(V5), R(V5/V6)+S(V1)] ABNORMAL ECG UNCONFIRMED REPORT Electronically signed by : RAFAELA CASTELLANOS, 02/12/2024 06:53:36
[2024-02-11 19:12] VITALS: BP 188/94; PULSE 94; RESP 16; TEMP 36.6; O2SAT 99; BMI 24.3
--- NOTE | 2024-02-11 19:17 | XR_ITS ---
PROCEDURE INFORMATION: Exam: XR Chest Exam date and time: 02/11/2024 7:50 PM Age: 84 years old Clinical indication: Chest wall pain; Additional info: Substernal chest pain TECHNIQUE: Imaging protocol: Radiologic exam of the chest. Views: 2 views. COMPARISON: CR XR CHEST 2V 08/10/2022 1:53 PM FINDINGS: Lungs: There is mild coarsening of the bronchovascular markings with hyperinflation suggesting underlying obstructive airways disease. Pleural spaces: No large effusion or pneumothorax. Heart/Mediastinum: Stable cardiac and mediastinal contours. Vasculature: There are calcifications of the aortic arch. Bones/joints: No evidence of acute osseous abnormalities within the visualized portions of the thoracic spine and ribs. Osseous structures appear appropriate for patient age. Intraperitoneal space: There are right upper quadrant surgical clips suggesting prior cholecystectomy. IMPRESSION: No dense parenchymal consolidation, pleural effusion, or pneumothorax.
--- NOTE | 2024-02-11 19:17 | [facility]H.EDCP ---
Discharge Plan Disposition Patient Disposition: Home, Self-Care Condition: Good Prescriptions Prescriptions: No Action lisinopril 20 mg tablet 20 mg PO DAILY Patient Comments: TAKE 1 TABLET BY MOUTH TWICE DAILY celecoxib 100 mg capsule 100 mg PO DAILY alprazolam 0.25 mg tablet 0.25 mg PO DAILY amoxicillin 500 mg tablet 500 mg PO TID 10 Days Qty: 30 0RF benzonatate 100 mg capsule 100 mg PO TIDP PRN (Reason: Cough) Qty: 30 0RF prednisone 10 mg tablet 10 mg PO BID 5 Days Qty: 10 0RF Referrals Follow up/Referrals: Todd Hawk MD [Primary Care Provider] - See instructions Ross Evans MD [Staff Physician] - See instructions Activity Restrictions/Add. Instructions Additional Instructions/Restrictions: As we discussed you can either follow-up with cardiology in [place] if they can see you in a timely fashion or locally preferably within 48 hours for recheck and further evaluation. Return to the ER for any worsening signs or symptoms as needed. Clinical Impressions Clinical Impression: Chest pain Qualifiers: Chest pain type: unspecified Qualified Code(s): R07.9 - Chest pain, unspecified Instructions Patient Instructions: DI for Chest Pain Print Language Print Language: Ukrainian Discharge ED Provider: Eduardo Pollock HPI <SHELBY Moraes - Last Filed: 02/11/24 22:26> General Chief Complaint: Chest Pain Stated Complaint: chest pain Time Seen by Provider: 02/11/24 19:17 Mode of Arrival: Ambulatory Source of Information: Patient Limitations: No Limitations Description of Symptoms (Recalled from ER Triage Doc. by RN): States she has a dull pain in her chest that just won't go away so she came to get it checked out. History of Present Illness HPI narrative: Patient presents for evaluation of chest pain. Patient states that she had sudden onset of dull chest substernal chest pain. It does not radiate. Patient has no associated shortness of breath diaphoresis lightheadedness palpitations. She does have a history of rheumatic fever and rheumatic heart disease as well as aortic stenosis from review of her records. She denies any fever chills hemoptysis hematochezia melena nausea vomit diarrhea. Related Data Home Medications ?Medication ?Instructions ?Recorded ?Confirmed celecoxib 100 mg capsule 100 mg PO DAILY 03/03/23 01/03/24 lisinopril 20 mg tablet 20 mg PO DAILY 03/03/23 01/03/24 alprazolam 0.25 mg tablet 0.25 mg PO DAILY 09/28/23 01/03/24 Previous Rx's ?Medication ?Instructions ?Recorded amoxicillin 500 mg tablet 500 mg PO TID 10 days #30 tabs 09/28/23 benzonatate 100 mg capsule 100 mg PO TIDP PRN Cough #30 caps 09/28/23 prednisone 10 mg tablet 10 mg PO BID 5 days #10 tabs 09/28/23 Allergies Allergy/AdvReac Type Severity Reaction Status Date / Time No Known Allergies Allergy Verified 01/03/24 13:56 [facility] <SHELBY Moraes - Last Filed: 02/11/24 22:26> [facility] Disclaimer: The information contained in this section may have been updated after the patient was seen, as this information can be updated by other users. Medical History COPD (chronic obstructive pulmonary disease) History of gastroesophageal reflux (GERD) Hyperlipidemia Hypertension Ovarian cyst Hematuria Surgical History History of cholecystectomy History of tonsillectomy History of appendectomy History of bilateral knee replacement Family History Other Brain cancer Family history of myocardial infarction No significant family history Social History Smoking Status: Never smoker alcohol intake: never substance use type: denies use current occupational status: other Travel in the last 8 weeks: None household members: none housing: house caffeine: Yes Other Medical History Have you received the Pneumonia Vaccine: Yes <SHELBY Moraes - Last Filed: 02/11/24 22:26> ROS Obtained: Yes Systems reviewed as appropriate & no additional complaints except as documented Physical Exam <SHELBY Moraes - Last Filed: 02/11/24 22:26> General General appearance: alert and in no apparent distress Respiratory Respiratory exam: Present normal lung sounds bilaterally Cardiovascular Cardiovascular exam: Present regular rate Neurological Exam Neurological exam: Present alert and oriented X3 HEART Score <SHELBY Moraes - Last Filed: 02/11/24 22:26> HEART Score HEART Score assessment performed?: Yes History (anamnesis): Slightly suspicious ECG: Non-specific disturbance Age: >65 years Risk factors: 3 or more risk factors Troponin: </= normal limit HEART Score: 5 <Eduardo Pollock MD - Last Filed: 02/11/24 23:07> HEART Score HEART Score: 5 Procedures <Eduardo Pollock MD - Last Filed: 02/11/24 23:07> Limited Ultrasound Indication:: Ultrasound-guided line placement Indication: -Difficult IV access Identified structures: -Ulnar and radial vein, basilic and cephalic veins Location/access site: -Right ulnar vein Vessel patency: -Patent Direct visualization? -Yes Impression: Successful placement of IV catheter Images were not saved to permanent archive The study was technically adequate CPT Codes: Venipuncture: 66997-34 Age <3 yo: 04687-53 Age >3yo: 71889-55 Central line <5 yo: 75665-99 Central line >5 yo: 67865-28 This study was performed by me, and I personally interpreted all images/videos. Based on my clinical judgement, these images were adequate and did not necessitate further imaging Critical Care <SHELBY Moraes - Last Filed: 02/11/24 22:26> Critical Care Time Critical Care Time: No Medical Decision Making <SHELBY Moraes - Last Filed: 02/11/24 22:26> Medical Records Medical records reviewed: Yes I reviewed the patient's medical records. Ralph Inquiry Pt receiving controlled substance: No Vital Signs Vital Signs: 02/11/24 19:12 02/11/24 22:33 Temperature 97.9 F 97.7 F Temperature Source Oral Oral Pulse Rate 80 Pulse Rate [Radial] 94 H Respiratory Rate 16 20 Blood Pressure 170/91 H Blood Pressure [Right Arm] 188/94 H Blood Pressure Mean [Right Arm] 125 Blood Pressure Source Automatic Cuff Blood Pressure Source [Right Arm] Automatic Cuff Blood Pressure Position Sitting Blood Pressure Position [Right Arm] Sitting 02 Sat by Pulse Oximetry 99 Oxygen Delivery Method Room Air Room Air Lab Data Lab results reviewed: Yes I reviewed the patient's lab results. Labs: Lab Results 02/11/24 19:31: WBC 6.3, RBC 4.38, Hgb 13.0, Hct 39.8, MCV 90.7, MCH 29.5, MCHC 32.6, RDW 13.1, Plt Count 196, MPV 9.3, Neut % (Auto) 64.3, Lymph % (Auto) 26.4, [place] % (Auto) 5.7, Eos % (Auto) 2.6, Baso % (Auto) 1.0, Neut # (Auto) 4.0, Lymph # (Auto) 1.7, [place] # (Auto) 0.4, Eos # (Auto) 0.2, Baso # (Auto) 0.1, PT 10.0 L, INR 0.88 L, D-Dimer 1.06 H, Sodium 137, Potassium 4.3, Chloride 101, Carbon Dioxide 32 H, Anion Gap 8.3, BUN 20 H, Creatinine 0.70, Estimated Creat Clear 41, Estimated GFR 79, Est GFR ( Amer) 96, Glucose 96, Calcium 9.4, Magnesium 1.9, Total Bilirubin 0.6, AST 32, ALT 11 L, Alkaline Phosphatase 59, Troponin I < 0.01, NT-Pro-B Natriuret Pep 700 H, Total Protein 7.0, Albumin 4.1, Globulin 2.9, Albumin/Globulin Ratio 1.4, Lipase 88, HIV 1&2 Antibody Rapid Nonreactive 02/11/24 21:13: Troponin I < 0.01 02/11/24 19:31 02/11/24 19:31 Response Orders (Tests/Meds): ED MEDICATIONS Discontinued Medications Generic Name Dose Route Start Last Admin Trade Name Gerberq PRN Reason Stop Dose Admin Acetaminophen 1,000 mg 02/11/24 19:17 02/11/24 19:25 Acetaminophen 500mg Tab PO 02/11/24 19:18 1,000 mg ONCE ONE Administration Belladonna Alkaloids 60 ml 02/11/24 19:17 02/11/24 19:25 Belladonna Alkaloids 60 Ml Ml PO 02/11/24 19:18 60 ml ONCE ONE Administration Iopamidol 80 ml 02/11/24 20:39 02/11/24 20:40 Iopamidol-370 (76%);100ml Bottle IV 02/11/24 20:40 80 ml ONCE ONE Administration Ketorolac Tromethamine 15 mg 02/11/24 19:17 02/11/24 19:25 Ketorolac 30mg/Ml Vial IV 02/11/24 19:18 15 mg ONCE ONE Administration Sodium Chloride 10 ml 02/11/24 20:39 02/11/24 20:40 Sodium Chloride 0.9% 10ml Syr (Rad Only) IV 03/12/24 20:38 10 ml NEEDED PRN Administration Maintain IV Site Sodium Chloride 50 ml 02/11/24 20:39 02/11/24 20:40 0.9 % Sodium Chloride 50 Ml Vial IV 02/11/24 20:40 50 ml ONCE ONE Administration ORDERS Category Date Time Status CT angio chest - dissection Stat Cat Scan 02/11/24 20:21 Completed Chest XR 2 view (NOT portable) [XR chest 2V] Stat Exams 02/11/24 19:17 Completed BNP [NT Pro Brain Natriuretic Pep.] Stat Lab 02/11/24 19:31 Completed CBC w/Auto Diff [Complete Blood Count Auto Diff] Stat Lab 02/11/24 19:31 Completed CMP [Comprehensive Metabolic Panel] Stat Lab 02/11/24 19:31 Completed D-Dimer Stat Lab 02/11/24 19:31 Completed HIV (1&2) Antibody Rapid Stat Lab 02/11/24 19:31 Completed Hep C Ab with Reflex to RNA Stat Lab 02/11/24 19:31 Received INR [Prothrombin Time INR] Stat Lab 02/11/24 19:31 Completed Lipase Stat Lab 02/11/24 19:31 Completed Magnesium Stat Lab 02/11/24 19:31 Completed Trop I [Troponin I] Stat Lab 02/11/24 19:31 Completed Troponin I Q3H Lab 02/11/24 21:13 Completed MDM Narrative Medical Decision Narrative: In summary patient is a 84-year-old female who presents to the emergency department for evaluation of chest pain. Patient is initially hypertensive with a blood pressure of 188/94 with a heart rate of 94 respirate 16 O2 sat 99% room air upon arrival, afebrile. Physical exam is remarkable for nonreproducible chest pain with normal breath sounds normal heart sounds no abdominal tenderness.. Differential diagnosis includes ACS versus dissection versus PE versus gastrointestinal cause versus pancreatitis etc. Initial workup will be conducted with hematologic labs twelve-lead EKG plain film chest x-ray CT dissection protocol. Initial interventions include Tylenol Toradol GI cocktail. Initial workup reviewed by me shows a negative troponin, elevated D-dimer and an NT proBNP of 700 and the remainder of her hematologic labs nonactionable and my informal interpretation of her plain film chest x-ray shows no acute processes. Given this I ordered a CT dissection protocol as POCUS revealed no acute abnormalities and she was refractory to GI cocktail along with the other initial intervention. Second troponin was again also undetectable and my formal interpretation of her CTA dissection protocol revealed no acute processes prior to radiology read. We have essentially ruled out any acute or serious life-threatening problems to the best of our ability and given this patient is appropriate for discharge with close follow-up with cardiology within 48 hours for recheck. Patient verbalized understanding and agreement. <Eduardo Pollock MD - Last Filed: 02/11/24 23:07> Vital Signs Vital Signs: 02/11/24 19:12 02/11/24 22:33 Temperature 97.9 F 97.7 F Temperature Source Oral Oral Pulse Rate 80 Pulse Rate [Radial] 94 H Respiratory Rate 16 20 Blood Pressure 170/91 H Blood Pressure [Right Arm] 188/94 H Blood Pressure Mean [Right Arm] 125 Blood Pressure Source Automatic Cuff Blood Pressure Source [Right Arm] Automatic Cuff Blood Pressure Position Sitting Blood Pressure Position [Right Arm] Sitting 02 Sat by Pulse Oximetry 99 Oxygen Delivery Method Room Air Room Air Lab Data Labs: Lab Results 02/11/24 19:31: WBC 6.3, RBC 4.38, Hgb 13.0, Hct 39.8, MCV 90.7, MCH 29.5, MCHC 32.6, RDW 13.1, Plt Count 196, MPV 9.3, Neut % (Auto) 64.3, Lymph % (Auto) 26.4, [place] % (Auto) 5.7, Eos % (Auto) 2.6, Baso % (Auto) 1.0, Neut # (Auto) 4.0, Lymph # (Auto) 1.7, [place] # (Auto) 0.4, Eos # (Auto) 0.2, Baso # (Auto) 0.1, PT 10.0 L, INR 0.88 L, D-Dimer 1.06 H, Sodium 137, Potassium 4.3, Chloride 101, Carbon Dioxide 32 H, Anion Gap 8.3, BUN 20 H, Creatinine 0.70, Estimated Creat Clear 41, Estimated GFR 79, Est GFR ( Amer) 96, Glucose 96, Calcium 9.4, Magnesium 1.9, Total Bilirubin 0.6, AST 32, ALT 11 L, Alkaline Phosphatase 59, Troponin I < 0.01, NT-Pro-B Natriuret Pep 700 H, Total Protein 7.0, Albumin 4.1, Globulin 2.9, Albumin/Globulin Ratio 1.4, Lipase 88, HIV 1&2 Antibody Rapid Nonreactive 02/11/24 21:13: Troponin I < 0.01 Response Orders (Tests/Meds): ED MEDICATIONS Discontinued Medications Generic Name Dose Route Start Last Admin Trade Name Freq PRN Reason Stop Dose Admin Acetaminophen 1,000 mg 02/11/24 19:17 02/11/24 19:25 Acetaminophen 500mg Tab PO 02/11/24 19:18 1,000 mg ONCE ONE Administration Belladonna Alkaloids 60 ml 02/11/24 19:17 02/11/24 19:25 Belladonna Alkaloids 60 Ml Ml PO 02/11/24 19:18 60 ml ONCE ONE Administration Iopamidol 80 ml 02/11/24 20:39 02/11/24 20:40 Iopamidol-370 (76%);100ml Bottle IV 02/11/24 20:40 80 ml ONCE ONE Administration Ketorolac Tromethamine 15 mg 02/11/24 19:17 02/11/24 19:25 Ketorolac 30mg/Ml Vial IV 02/11/24 19:18 15 mg ONCE ONE Administration Sodium Chloride 10 ml 02/11/24 20:39 02/11/24 20:40 Sodium Chloride 0.9% 10ml Syr (Rad Only) IV 03/12/24 20:38 10 ml NEEDED PRN Administration Maintain IV Site Sodium Chloride 50 ml 02/11/24 20:39 02/11/24 20:40 0.9 % Sodium Chloride 50 Ml Vial IV 02/11/24 20:40 50 ml ONCE ONE Administration ORDERS Category Date Time Status CT angio chest - dissection Stat Cat Scan 02/11/24 20:21 Completed Chest XR 2 view (NOT portable) [XR chest 2V] Stat Exams 02/11/24 19:17 Completed BNP [NT Pro Brain Natriuretic Pep.] Stat Lab 02/11/24 19:31 Completed CBC w/Auto Diff [Complete Blood Count Auto Diff] Stat Lab 02/11/24 19:31 Completed CMP [Comprehensive Metabolic Panel] Stat Lab 02/11/24 19:31 Completed D-Dimer Stat Lab 02/11/24 19:31 Completed HIV (1&2) Antibody Rapid Stat Lab 02/11/24 19:31 Completed Hep C Ab with Reflex to RNA Stat Lab 02/11/24 19:31 Received INR [Prothrombin Time INR] Stat Lab 02/11/24 19:31 Completed Lipase Stat Lab 02/11/24 19:31 Completed Magnesium Stat Lab 02/11/24 19:31 Completed Trop I [Troponin I] Stat Lab 02/11/24 19:31 Completed Troponin I Q3H Lab 02/11/24 21:13 Completed ECG Data Tracing #1: Attestation: I reviewed this ECG and interpreted as documented below: (Sinus rhythm 92 beats a minute with no ST or T wave changes concerning for acute ischemia. Patient does have LVH. DE 173, QRS 93, QTc 407. Normal axis.) MDM Narrative Medical Decision Narrative: In summary patient is a 84-year-old female who presents to the emergency department for evaluation of chest pain. Patient is initially hypertensive with a blood pressure of 188/94 with a heart rate of 94 respirate 16 O2 sat 99% room air upon arrival, afebrile. Physical exam is remarkable for nonreproducible chest pain with normal breath sounds normal heart sounds no abdominal tenderness.. Differential diagnosis includes ACS versus dissection versus PE versus gastrointestinal cause versus pancreatitis etc. Initial workup will be conducted with hematologic labs twelve-lead EKG plain film chest x-ray CT dissection protocol. Initial interventions include Tylenol Toradol GI cocktail. Initial workup reviewed by me shows a negative troponin, elevated D-dimer and an NT proBNP of 700 and the remainder of her hematologic labs nonactionable and my informal interpretation of her plain film chest x-ray shows no acute processes. Given this I ordered a CT dissection protocol as POCUS revealed no acute abnormalities and she was refractory to GI cocktail along with the other initial intervention. Second troponin was again also undetectable and my formal interpretation of her CTA dissection protocol revealed no acute processes prior to radiology read. We have essentially ruled out any acute or serious life-threatening problems to the best of our ability and given this patient is appropriate for discharge with close follow-up with cardiology within 48 hours for recheck. Patient verbalized understanding and agreement. I was consulted by the RAPHAEL, and we discussed the complexity of the problems being addressed. I approved the treatment and management plan for this patient's care in the Emergency Department, thus performing a substantive portion of the medical decision making. Eduardo Pollock MD
[2024-02-11] MEDS: ACETAMINOPHEN 500MG TAB 1000 MG PO (19:25)
[2024-02-11] MEDS: KETOROLAC 30MG/ML VIAL 15 MG IV (19:25)
[2024-02-11] MEDS: BELLADONNA ALKALOIDS 60 ML ML PO (19:25)
[2024-02-11 19:44] LABS: Basophils # 0.1 K/mm3 (0-0.2); Eosinophils # 0.2 K/mm3 (0.0-0.4); Eosinophils % 2.6 % (0.1-12.0); Hematocrit 39.8 % (37.0-47.0); Lymphocytes # 1.7 K/mm3 (0.7-4.5); Lymphocytes % 26.4 % (10-50); Mean Corpuscular HGB Conc 32.6 g/dL (31.8-35.4); Mean Corpuscular Hemoglobin 29.5 pg (27.0-31.2); Mean Corpuscular Volume 90.7 fl (81-99); Mean Platelet Volume 9.3 fl (7.4-10.4); Monocytes # 0.4 K/mm3 (0.1-1.0); Monocytes % 5.7 % (1.7-9.3); Neutrophils % 64.3 % (37.0-80.0); Platelet Count 196 K/mm3 (142-424); Red Blood Count 4.38 M/mm3 (4.20-5.40); Red Cell Distribution Width 13.1 % (11.5-17.5); White Blood Count 6.3 K/mm3 (4.8-10.8)
[2024-02-11 19:50] LABS: Albumin Level 4.1 g/dl (3.5-5.0); Chloride 101 mmol/L (98-107); Potassium 4.3 mmoL/L (3.5-5.1); Sodium 137 mmol/L (136-145)
[2024-02-11 19:53] LABS: Alanine Aminotransferase 11 U/L (12-78); Albumin/Globulin Ratio 1.4 (1.1-1.8); Alkaline Phosphatase 59 U/L (38-126); Anion Gap 8.3 mEq/L (5-15); Aspartate Amino Transferase 32 U/L (14-36); Bilirubin,Total 0.6 mg/dl (0.2-1.3); Blood Urea Nitrogen 20 mg/dl (7-17); Calcium 9.4 mg/dl (8.4-10.2); Carbon Dioxide 32 mmol/L (22.0-30.0); Creatinine Clearance Estimated 41 mL/min (50-200); Estimated Glomerular Filt Rate 79 ml/min (>60); GFR (African American) 96 ML/MIN (>60); Globulin 2.9 g/dL (1.3-3.2); Glucose 96 mg/dl (74-100); Lipase 88 U/L (23-300)
[2024-02-11 19:54] LABS: Magnesium 1.9 mg/dl (1.6-2.3)
[2024-02-11 20:04] LABS: NT Pro Brain Natriuretic Pep. 700 pg/mL (0-450)
[2024-02-11 20:05] LABS: INR 0.88 (0.9-1.1)
[2024-02-11 20:06] LABS: Troponin I < 0.01 ng/ml (0.00-0.034)
[2024-02-11 20:11] LABS: D-Dimer 1.06 ug/mL (0.0-0.5)
--- NOTE | 2024-02-11 20:21 | CT_ITS ---
PROCEDURE INFORMATION: Exam: CTA Chest With Contrast Exam date and time: 02/11/2024 8:30 PM Age: 84 years old Clinical indication: Pain and abnormal findings; Other: Elevated d-dimer, ; additional info: Chest pain, elevated d-dimer, aortic stenosis TECHNIQUE: Imaging protocol: Computed tomographic angiography of the chest with contrast. Exam focused on the arteries. 3D rendering (Not supervised by radiologist): MIP and/or 3D reconstructed images were created by the technologist. Radiation optimization: All CT scans at this facility use at least one of these dose optimization techniques: automated exposure control; mA and/or kV adjustment per patient size (includes targeted exams where dose is matched to clinical indication); or iterative reconstruction. Contrast material: ISOUVE 370; Contrast volume: 80 ml; Contrast route: INTRAVENOUS (IV); COMPARISON: 1. CR XR CHEST 2V 02/11/2024 7:50 PM 2. CR XR CHEST 2V 08/10/2022 1:53 PM 3. CR XR CHEST 2V 06/18/2022 12:30 PM FINDINGS: Pulmonary arteries: Normal. No pulmonary emboli. Aorta: There is atherosclerotic disease of the visualized aorta and its major branch vessels. There is scattered atherosclerotic disease of the aorta without evidence for aneurysm or dissection. Lungs: There are scattered areas of emphysema throughout the lungs. Scattered areas of bronchial wall thickening which are likely chronic inflammatory. A few areas of subpleural reticulation are noted, nonspecific. Pleural spaces: Unremarkable. No pneumothorax. No pleural effusion. Heart: The heart is enlarged. There is dense mitral annular calcification. Lymph nodes: Unremarkable. No enlarged lymph nodes. Gallbladder and biliary ducts: The patient is status post cholecystectomy. Spleen: There are multiple calcifications in the spleen most likely reflects small granulomas. Kidneys: Partially visualized simple appearing bilateral renal cysts. Bones/joints: There is diffuse degenerative disease of the visualized osseous structures. There is exaggeration of the spinal curvature. Chronic appearing compression deformity of T7 is noted. Soft tissues: Unremarkable. Other findings: Motion artifact mildly limits evaluation. IMPRESSION: 1. There is scattered atherosclerotic disease of the aorta without evidence for aneurysm or dissection. 2. No dense parenchymal consolidation, pleural effusion, or pneumothorax. COMMENTS: Consistent with the [employer]'s Incidental Findings Committee white paper (J Am Ebony Radiol 2018): Any incidental renal lesion less than 1 cm or classified as too small to characterize, or any incidental cystic renal lesion characterized as simple-appearing, is likely benign. No follow-up imaging is recommended for these lesions per consensus recommendations based on imaging criteria.
[2024-02-11] MEDS: SODIUM CHLORIDE 0.9% 10ML SYR (RAD ONLY) 10 ML IV (20:40)
[2024-02-11] MEDS: IOPAMIDOL-370 (76%);100ML BOTTLE 80 ML IV (20:40)
[2024-02-11] MEDS: 0.9 % SODIUM CHLORIDE 50 ML VIAL IV (20:40)
[2024-02-11 22:06] LABS: Troponin I < 0.01 ng/ml (0.00-0.034)
[2024-02-11 22:19] LABS: HIV (1&2) Antibody Rapid NONREACTIVE (NONREACTIVE)
[2024-02-11 22:33] VITALS: BP 170/91; PULSE 80; RESP 20; TEMP 36.5; O2SAT 98
[2024-02-13 09:29] LABS: HCV Ab Non Reactive (Non Reactive)
== END 2024-02-11 22:37 | disposition home or self-care (01) ==
PROVIDERS: Physician Assistant; Emergency Provider Emergency Medicine; PCP Internal Medicine Adolescent Medicine
DX: R07.9 Chest pain, unspecified (principal)
CPT/HCPCS: 71046; 71275; 80053; 83690; 83735; 83880; 84484; 85025; 85378; 85610; 86803; 87389; 93005; 96374; 99285; J1885; Q9967

== ENCOUNTER 2024-03-16 12:56 | Emergency (ER) | payer MEDICARE, BC, SELFPAY ==
[2024-03-16 13:15] VITALS: BP 143/88; PULSE 91; RESP 20; TEMP 37.2; O2SAT 95; BMI 24.7
[2024-03-16 13:45] LABS: UTC Strep Screen (Rapid) Negative (Negative)
--- NOTE | 2024-03-16 13:46 | EXP.UTC ---
Discharge Plan Disposition Patient Disposition: Home, Self-Care Condition: Good Prescriptions Prescriptions: New amoxicillin 500 mg tablet 500 mg PO BID 10 Days Qty: 20 0RF benzonatate 100 mg capsule 100 mg PO BID PRN (Reason: cough) 3 Days Qty: 6 0RF No Action lisinopril 20 mg tablet 20 mg PO DAILY Patient Comments: TAKE 1 TABLET BY MOUTH TWICE DAILY celecoxib 100 mg capsule 100 mg PO DAILY atorvastatin 10 mg tablet 10 mg PO HS Patient Comments: TAKE 1 TABLET BY MOUTH ONCE DAILY Referrals Follow up/Referrals: Todd Hawk MD [Primary Care Provider] - See instructions Activity Restrictions/Add. Instructions Additional Instructions/Restrictions: Start antibiotic patient to take as ordered for a full length of time even if you feel better. Sinus infections do not get better overnight. It may take 2-3 days to notice much improvement so be sure to use conservative measures as discussed for symptoms. Increase fluids Humidifier/vaporizer as needed Tylenol and ibuprofen as needed for fever or pain. If symptoms do not improve or get worse return or be seen in the ER Follow-up with primary care this week Clinical Impressions Clinical Impression: Acute maxillary sinusitis, Acute bronchitis Instructions Patient Instructions: DI for Sinusitis, DI for Acute Bronchitis Print Language Print Language: Bol[place]ian Discharge ED Provider: Vincenzo ([facility] [place] HPI General Stated complaint: sore throat Mode of Arrival: Ambulatory Source of Information: Patient Limitations: No Limitations Time Seen by Provider: 03/16/24 13:23 Description of Symptoms (Recalled from Triage Doc. by RN): PATIENT C/O COUGH AND SORE THROAT HEENT Symptoms (Recalled from RN notes): Yes Resp Symptoms (Recalled from RN notes): Yes Skin Symptoms (Recalled from RN notes): No MS Symptoms (Recalled from RN notes): No Functional Status (Recalled from RN notes): WNL History of Present Illness Provider Complaint: 84-year-old female presents for sore throat, nasal congestion, and cough. Patient states she has been sick for couple days and seems like she is getting worse. Related Data Home Medications ?Medication ?Instructions ?Recorded ?Confirmed celecoxib 100 mg capsule 100 mg PO DAILY 03/03/23 03/16/24 lisinopril 20 mg tablet 20 mg PO DAILY 03/03/23 03/16/24 atorvastatin 10 mg tablet 10 mg PO HS 03/16/24 03/16/24 Previous Rx's ?Medication ?Instructions ?Recorded amoxicillin 500 mg tablet 500 mg PO BID 10 days #20 tabs 03/16/24 benzonatate 100 mg capsule 100 mg PO BID PRN cough 3 days #6 03/16/24 caps Allergies Allergy/AdvReac Type Severity Reaction Status Date / Time No Known Allergies Allergy Verified 01/03/24 13:56 Worker's Comp Is this a Worker's Comp case?: No [facility] Disclaimer: The information contained in this section may have been updated after the patient was seen, as this information can be updated by other users. 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) Smoking Status: Never smoker alcohol intake: never substance use type: denies use current occupational status: other household members: none housing: house caffeine: Yes ROS Obtained: Yes Systems reviewed as appropriate & no additional complaints except as documented Physical Exam General General appearance: alert and in no apparent distress Eye Eye exam: Present normal appearance and PERRL ENT ENT exam: Present mucous membranes moist Expanded ENT Exam TM/Canal exam: Bilateral TM: effusion Nose exam: Present sinus tenderness Comment: Pharynx red with exudate Respiratory Respiratory exam: Present wheezes Cardiovascular Cardiovascular exam: Present regular rate, normal rhythm and systolic murmur Neurological Exam Neurological exam: Present alert and oriented X3 Skin Skin exam: Present warm Medical Decision Making Medical Records Screening: Per USPSTF and CDC recommendations, given the prevalence of disease in our region, it is our hospital?s policy to screen for HIV and viral Hepatitis for all patients aged 18 and over and those with ongoing risk factors. Ralph Inquiry Pt receiving controlled substance: No Vital Signs: 03/16/24 13:15 Temperature 99.0 F Temperature Source Oral Pulse Rate [Left Brachial] 91 H Respiratory Rate 20 Blood Pressure [Left Arm] 143/88 H Blood Pressure Mean [Left Arm] 106 Blood Pressure Source [Left Arm] Automatic Cuff Blood Pressure Position [Left Arm] Sitting 02 Sat by Pulse Oximetry 95 Oxygen Delivery Method Room Air Lab Data Lab Results 03/16/24 13:18: Strep Scn Rapid Clinic Negative
[2024-03-16] MEDS: DEXAMETHASONE 4MG/ML 1ML VIAL 4 MG IM (13:55)
[2024-03-16 13:57] VITALS: BP 143/88; PULSE 91; RESP 20; TEMP 37.2; O2SAT 95
== END 2024-03-16 14:05 | disposition home or self-care (01) ==
PROVIDERS: Emergency Provider Nurse Practitioner Family; PCP Internal Medicine Adolescent Medicine
DX: J01.00 Acute maxillary sinusitis, unspecified (principal); J20.9 Acute bronchitis, unspecified
CPT/HCPCS: 87880; 96372; 99213; G0381; J1100

== ENCOUNTER 2024-04-08 14:25 | Outpatient (CLI) | payer MEDICARE, BC, SELFPAY ==
--- NOTE | 2024-04-08 14:31 | XR_ITS ---
FINAL REPORT CLINICAL HISTORY: pain COMPARISON: None FINDINGS: RIGHT HIP Two views of the right hip demonstrate no acute fracture or dislocation. Moderate degenerative changes are noted. There are changes of osteopenia. The visualized bony structures are well aligned. No soft tissue abnormality is seen. IMPRESSION: Moderate degenerative changes. Reviewed, Interpreted and Dictated by Martín Chanel MD Transcribed by Cheyenne Ogden Authenticated and [facility]
--- NOTE | 2024-04-08 14:32 | XR_ITS ---
FINAL REPORT CLINICAL HISTORY: PAIN COMPARISON: None FINDINGS: RIGHT FEMUR Two views show no evidence of an acute, displaced fracture or dislocation of the visualized bony architecture. Moderate degenerative changes are noted of the right hip. There are changes of osteopenia. Post arthroplasty changes are noted of the right knee. IMPRESSION: Moderate degenerative changes. Reviewed, Interpreted and Dictated by Martín Chanel MD Transcribed by Cheyenne Ogden Authenticated and . [facility]
== END 2024-04-08 23:59 | disposition home or self-care (01) ==
LOC: RAD 14:28
PROVIDERS: PCP Internal Medicine Adolescent Medicine; Visit Provider Internal Medicine Adolescent Medicine
DX: M25.551 Pain in right hip (principal); M79.651 Pain in right thigh
CPT/HCPCS: 73502; 73552

== ENCOUNTER 2024-07-28 11:54 | Emergency (ER) | payer MEDICARE, BC, SELFPAY ==
[2024-07-28] VITALS (7 sets, daily range): BP systolic 139–179; BP diastolic 65–76; PULSE 72–90; RESP 13–23; TEMP 36.8–36.9; O2SAT 95–98; BMI 23.0
--- NOTE | 2024-07-28 12:06 | ECG_ITS ---
APPROVED REPORT Exam: Resting ECG HR:88 bpm ECG Measurements Heart Rate 88 AXES FL 166 P 79 QRSd 97 QRS 83 QT 376 T 72 QTc 422 Conclusion SINUS RHYTHM NORMAL ECG Electronically signed by : SERA GALLEGOS, 07/29/2024 03:58:55
--- NOTE | 2024-07-28 12:11 | CT_ITS ---
PROCEDURE INFORMATION: Exam: CT Abdomen And Pelvis With Contrast Exam date and time: 07/28/2024 12:46 PM Age: 84 years old Clinical indication: Abdominal pain; Additional info: Rlq tenderness, constipation, history diverticulit TECHNIQUE: Imaging protocol: Computed tomography of the abdomen and pelvis with contrast. Radiation optimization: All CT scans at this facility use at least one of these dose optimization techniques: automated exposure control; mA and/or kV adjustment per patient size (includes targeted exams where dose is matched to clinical indication); or iterative reconstruction. Contrast material: ISOVUE; Contrast volume: 75 ml; Contrast route: IV; COMPARISON: CR XR HIP RT 2-3V W/PELVIS 04/08/2024 2:35 PM FINDINGS: Heart: There is calcification of the aortic valve annulus. Significant calcification of the mitral valve annulus. Coronary arteries: Coronary artery calcifications may indicate coronary artery disease. Liver: Normal. No mass. Gallbladder and biliary ducts: Cholecystectomy Pancreas: Normal. No ductal dilation. Spleen: Normal. No splenomegaly. Adrenal glands: Normal. No mass. Kidneys and ureters: Pararenal cysts in both kidneys. No dilatation of the ureters. . No follow-up imaging recommended . Stomach and bowel: Dilated loop of duodenum with air-fluid level 5 cm.. It was present on the CTA chest dated February 11 2024. 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 Diverticulosis of the rectosigmoid. No diverticulitis Findings consistent with constipation Appendix: No evidence of appendicitis. Intraperitoneal space: Unremarkable. No free air. No significant fluid collection. Vasculature: Unremarkable. No abdominal aortic aneurysm. Lymph nodes: Unremarkable. No enlarged lymph nodes. Urinary bladder: Unremarkable as visualized. Reproductive: Unremarkable as visualized. Bones/joints: Dextroscoliosis of the lumbar spine Soft tissues: Mesh herniorrhaphy in the right lateral hemiabdomen and hemipelvis. IMPRESSION: 1. Dilated loop of duodenum with air-fluid level 5 cm.. It was present on the CTA chest dated February 11 2024. 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 2. Mesh herniorrhaphy in the right lateral hemiabdomen and hemipelvis. COMMENTS: Consistent with the [employer]'s Incidental Findings Committee white paper (J Am Ebony Radiol 2018): Any incidental renal lesion less than 1 cm or classified as too small to characterize, or any incidental cystic renal lesion characterized as simple-appearing, is likely benign. No follow-up imaging is recommended for these lesions per consensus recommendations based on imaging criteria.
[2024-07-28 12:17] LABS: Microscopic, Urine URINE MICROSCOPIC (MICROSCOPIC)
[2024-07-28 12:19] LABS: Appearance,Urine CLEAR (Clear); Bilirubin,Urine Negative (Negative); Blood, Urine TRACE-I (Negative); Color,Urine YELLOW (Yellow); Glucose,Urine (UA) Negative (Negative); Ketones,Urine Negative (Negative); Leukocyte Esterase,Urine TRACE (Negative); Nitrate,Urine Negative (Negative); PH,Urine 7.5 (5.0-8.5); Protein,Urine Negative (Negative); Specific Gravity, Urine 1.015 (1.005-1.030); Urobilinogen,Urine 0.2 EU/dl (0.2)
--- NOTE | 2024-07-28 12:19 | ED_ITS ---
<Statement entered by Cody Mason MD - 07/28/24 16:05> I was consulted by the RAPHAEL, and we discussed the complexity of the problems being addressed. I approved the treatment and management plan for this patient's care in the emergency department, thus performing a substantive portion of the medical decision making. Cody Mason MD Discharge Plan Disposition Patient Disposition: Home, Self-Care Condition: Good Prescriptions Prescriptions: No Action polyethylene glycol 3350 [Miralax] 17 gram/dose powder 17 g PO DAILY Metamucil (sugar) Powder 1 tbsp PO DAILY ammonium lactate 12 % cream 1 applic topical BID 30 Days Qty: 385 2RF lisinopril 20 mg tablet 20 mg PO DAILY Patient Comments: TAKE 1 TABLET BY MOUTH TWICE DAILY celecoxib 100 mg capsule 100 mg PO DAILY atorvastatin 10 mg tablet 10 mg PO HS Patient Comments: TAKE 1 TABLET BY MOUTH ONCE DAILY benzonatate 100 mg capsule 100 mg PO BID PRN (Reason: cough) 3 Days Qty: 6 0RF Referrals Follow up/Referrals: Todd Hawk MD [Primary Care Provider] - See instructions Activity Restrictions/Add. Instructions Additional Instructions/Restrictions: You were seen for constipation and a dilated part of your intestine. Please see your GI doctor. Take miralax daily. Return to the ED if you have increased pain or are unable to pass stool or gas. Clinical Impressions Clinical Impression: Constipation, Dilation of duodenum Instructions Patient Instructions: DI for Acute Abdominal Pain Print Language Print Language: Egyptian Discharge ED Provider: Cody Mason General Adult HPI <SHELBY Diaz - Last Filed: 07/28/24 14:55> General Chief complaint: Abdominal Pain Stated complaint: abd pain nausea diarrhea Time Seen by Provider: 07/28/24 12:04 History of Present Illness HPI narrative: Patient presents complaining of right lower quadrant abdominal pain since . She has been experiencing some nausea and constipation. She has taken a laxative, stool softeners, MiraLAX, Metamucil and had a small amount of loose stool output. She denies any blood in the stool. She does have a history of diverticulitis. She is unsure if symptoms seem similar to the diverticulitis in the past. Pain is described as sharp. Denies any fevers. complaint: RLQ pain Onset (ago): day(s) Location: abdomen Radiation: non-radiation Severity: moderate Quality: sharp Relieving factors: none Exacerbating factors: none Associated symptoms: nausea/vomiting (nausea); negative fever/chills Related Data Home Medications ?Medication ?Instructions ?Recorded ?Confirmed celecoxib 100 mg capsule 100 mg PO DAILY 03/03/23 07/03/24 lisinopril 20 mg tablet 20 mg PO DAILY 03/03/23 07/03/24 atorvastatin 10 mg tablet 10 mg PO HS 03/16/24 07/03/24 polyethylene glycol 3350 17 17 g PO DAILY 04/02/24 07/03/24 gram/dose oral powder (Miralax) psyllium seed (sugar) oral powder 1 tbsp PO DAILY 04/02/24 07/03/24 (Metamucil (sugar) oral powder) Previous Rx's ?Medication ?Instructions ?Recorded benzonatate 100 mg capsule 100 mg PO BID PRN cough 3 days #6 03/16/24 caps ammonium lactate 12 % topical cream 1 applic topical BID dry skin, 07/03/24 callus care 30 days #385 grams Allergies Allergy/AdvReac Type Severity Reaction Status Date / Time No Known Allergies Allergy Verified 07/03/24 09:20 [facility] <SHELBY Diaz - Last Filed: 07/28/24 14:55> [facility] Disclaimer: The information contained in this section may have been updated after the patient was seen, as this information can be updated by other users. Medical History COPD (chronic obstructive pulmonary disease) History of gastroesophageal reflux (GERD) Hyperlipidemia Hypertension Ovarian cyst Hematuria Surgical History History of cholecystectomy History of tonsillectomy History of appendectomy History of bilateral knee replacement Family History Other Brain cancer Family history of myocardial infarction No significant family history Social History Smoking Status: Never smoker alcohol intake: never substance use type: denies use current occupational status: other Travel in the last 8 weeks: None household members: none housing: house caffeine: Yes Have you lived/traveled outside [place] in past 30 days?: No Contact w/someone who lives/traveled outside US past 30 days?: No Exposure to someone with infectious disease in past 14 days?: No Do you have a fever (greater than 100.4 F or 38 C)?: No Have you tested positive for COVID-19: No Exposed to someone with COVID-19 in past 14 days?: No Do you have a sore throat?: No Do you have a cough?: No Do you have any weakness?: Yes Do you have any diarrhea?: Yes Are you experiencing any unusual bleeding?: No Do you have any muscle aches/pain?: No Do you have any abdominal pain?: Yes Are you experiencing loss of taste or smell?: No Other Medical History Have you received the Pneumonia Vaccine: Yes <SHELBY Diaz - Last Filed: 07/28/24 14:55> ROS Obtained: Yes Systems reviewed as appropriate & no additional complaints except as documented Physical Exam <SHELBY Diaz - Last Filed: 07/28/24 14:55> General General appearance: alert and in no apparent distress Head Head exam: atraumatic and normocephalic Eye Eye exam: Present normal appearance and EOMI Chest Chest inspection: Present symmetric chest wall rise Respiratory Respiratory exam: Present normal lung sounds bilaterally; Absent wheezes or stridor Cardiovascular Cardiovascular exam: Present regular rate and normal rhythm; Absent systolic murmur Abdominal Exam Abdominal exam: Present soft and normal bowel sounds; Absent guarding, rebound or rigidity Abdominal tenderness: Present RLQ Extremities Exam Extremities exam: Present full ROM Neurological Exam Neurological exam: Present alert and oriented X3 Psychiatric Psychiatric exam: Present normal affect and normal mood Skin Skin exam: Present warm, dry and intact Medical Decision Making <SHELBY Diaz Last Filed: 07/28/24 14:55> Medical Records Screening: Per USPSTF and CDC recommendations, given the prevalence of disease in our region, it is our hospital?s policy to screen for HIV and viral Hepatitis for all patients aged 18 and over and those with ongoing risk factors. Ralph Inquiry Pt receiving controlled substance: No Vital Signs: 07/28/24 12:18 07/28/24 12:20 07/28/24 12:30 Temperature 98.2 F Temperature Source Oral Pulse Rate 90 81 Pulse Rate [Left Radial] 85 Respiratory Rate 23 20 17 Blood Pressure 160/76 H 150/71 H Blood Pressure [Right Arm] 160/76 H Blood Pressure Mean [Right Arm] 104 02 Sat by Pulse Oximetry 98 97 95 Oxygen Delivery Method Room Air Room Air Room Air 07/28/24 13:00 07/28/24 13:30 07/28/24 14:00 Temperature Temperature Source Pulse Rate 75 78 72 Pulse Rate [Left Radial] Respiratory Rate 14 13 13 Blood Pressure 147/66 H 179/74 H 139/65 Blood Pressure [Right Arm] Blood Pressure Mean [Right Arm] 02 Sat by Pulse Oximetry 95 95 97 Oxygen Delivery Method Room Air Room Air Room Air 07/28/24 14:40 Temperature 98.5 F Temperature Source Pulse Rate 73 Pulse Rate [Left Radial] Respiratory Rate 20 Blood Pressure 143/67 H Blood Pressure [Right Arm] Blood Pressure Mean [Right Arm] 02 Sat by Pulse Oximetry Oxygen Delivery Method Room Air Lab Data Lab Results 07/28/24 12:09: Urine Color Yellow, Urine Appearance Clear, Urine pH 7.5, Ur Specific [place] 1.015, Urine Protein Negative, Urine Glucose (UA) Negative, Urine Ketones Negative, Urine Blood Trace-i, Urine Nitrate Negative, Urine Bilirubin Negative, Urine Urobilinogen 0.2, Ur Leukocyte Esterase Trace, Urine RBC None, Urine WBC Occasional, Ur Squamous Epith Cells 3-5 07/28/24 12:15: WBC 6.2, RBC 4.54, Hgb 13.4, Hct 41.7, MCV 91.9, MCH 29.5, MCHC 32.1, RDW 12.9, Plt Count 210, MPV 10.7 H, Neut % (Auto) 68.6, Lymph % (Auto) 21.3, [place] % (Auto) 6.4, Eos % (Auto) 2.4, Baso % (Auto) 1.1, Neut # (Auto) 4.3, Lymph # (Auto) 1.3, [place] # (Auto) 0.4, Eos # (Auto) 0.2, Baso # (Auto) 0.1, Sodium 139, Potassium 4.2, Chloride 103, Carbon Dioxide 31 H, Anion Gap 9.2, BUN 17, Creatinine 0.70, Estimated Creat Clear 39, Estimated GFR 79, Est GFR ( Amer) 96, Glucose 92, Lactate 0.9, Calcium 9.3, Total Bilirubin 0.7, AST 27, ALT 14, Alkaline Phosphatase 82, Total Protein 7.0, Albumin 4.0, Globulin 3.0, Albumin/Globulin Ratio 1.3, Lipase 94 07/28/24 12:15 07/28/24 12:15 Orders (Tests/Meds): ED MEDICATIONS Discontinued Medications Generic Name Dose Route Start Last Admin Trade Name Freq PRN Reason Stop Dose Admin Iopamidol 75 ml 07/28/24 12:53 07/28/24 12:54 Iopamidol-370 (76%);100ml Bottle IV 07/28/24 12:54 75 ml ONCE ONE Administration Ondansetron HCl 4 mg 07/28/24 12:12 07/28/24 12:21 Ondansetron 4mg/2ml Vial IV 07/28/24 12:13 4 mg ONCE ONE Administration Sodium Chloride 10 ml 07/28/24 12:53 07/28/24 12:54 Sodium Chloride 0.9% 10ml Syr (Rad Only) IV 08/27/24 12:52 10 ml NEEDED PRN Administration Maintain IV Site ORDERS Category Date Time Status CT abdomen pelvis w con Stat Cat Scan 07/28/24 12:11 Completed Complete Blood Count Auto Diff Stat Lab 07/28/24 12:15 Completed Comprehensive Metabolic Panel Stat Lab 07/28/24 12:15 Completed Lactic Acid Stat Lab 07/28/24 12:15 Completed Lipase Stat Lab 07/28/24 12:15 Completed UA [Urinalysis and Microscopic] Stat Lab 07/28/24 12:09 Completed Urinalysis and Microscopic Stat Lab 07/28/24 12:11 Ordered Medical Decision Narrative: In summary patient is a 84-year-old who presents the emergency department for evaluation of right lower quadrant abdominal pain. Patient is hemodynamically stable upon arrival, A-fib. Right lower quadrant abdominal tenderness. Differential diagnosis includes appendicitis, colitis, diverticulitis, SBO. Initial workup will be conducted with hematologic labs, CT abdomen and pelvis, urine. Initial inventions include Zofran for nausea. Initial workup reviewed by me hematologic labs unremarkable. CT abdomen pelvis reveals dilated duodenum, possibly a duodenal diverticulum as well as evidence of a previous hernia repair. Upon repeat evaluation patient's pain is well-controlled, she is requesting to go home. I did discuss this with Dr. Griffin who did not feel this was a surgical issue. Patient will follow up with GI. Advised to see her PCP for follow up on an incidental renal lesion. Will start miralax 17 G daily. Given return precautions for when to return to ED. Patient and family agreeable. <Cody Mason MD - Last Filed: 07/28/24 12:29> Vital Signs: 07/28/24 12:18 07/28/24 12:20 07/28/24 12:30 Temperature 98.2 F Temperature Source Oral Pulse Rate 90 81 Pulse Rate [Left Radial] 85 Respiratory Rate 23 20 17 Blood Pressure 160/76 H 150/71 H Blood Pressure [Right Arm] 160/76 H Blood Pressure Mean [Right Arm] 104 02 Sat by Pulse Oximetry 98 97 95 Oxygen Delivery Method Room Air Room Air Room Air 07/28/24 13:00 07/28/24 13:30 07/28/24 14:00 Temperature Temperature Source Pulse Rate 75 78 72 Pulse Rate [Left Radial] Respiratory Rate 14 13 13 Blood Pressure 147/66 H 179/74 H 139/65 Blood Pressure [Right Arm] Blood Pressure Mean [Right Arm] 02 Sat by Pulse Oximetry 95 95 97 Oxygen Delivery Method Room Air Room Air Room Air 07/28/24 14:40 Temperature 98.5 F Temperature Source Pulse Rate 73 Pulse Rate [Left Radial] Respiratory Rate 20 Blood Pressure 143/67 H Blood Pressure [Right Arm] Blood Pressure Mean [Right Arm] 02 Sat by Pulse Oximetry Oxygen Delivery Method Room Air Lab Data Lab Results 07/28/24 12:09: Urine Color Yellow, Urine Appearance Clear, Urine pH 7.5, Ur Specific [place] 1.015, Urine Protein Negative, Urine Glucose (UA) Negative, Urine Ketones Negative, Urine Blood Trace-i, Urine Nitrate Negative, Urine Bilirubin Negative, Urine Urobilinogen 0.2, Ur Leukocyte Esterase Trace, Urine RBC None, Urine WBC Occasional, Ur Squamous Epith Cells 3-5 07/28/24 12:15: WBC 6.2, RBC 4.54, Hgb 13.4, Hct 41.7, MCV 91.9, MCH 29.5, MCHC 32.1, RDW 12.9, Plt Count 210, MPV 10.7 H, Neut % (Auto) 68.6, Lymph % (Auto) 21.3, [place] % (Auto) 6.4, Eos % (Auto) 2.4, Baso % (Auto) 1.1, Neut # (Auto) 4.3, Lymph # (Auto) 1.3, [place] # (Auto) 0.4, Eos # (Auto) 0.2, Baso # (Auto) 0.1, Sodium 139, Potassium 4.2, Chloride 103, Carbon Dioxide 31 H, Anion Gap 9.2, BUN 17, Creatinine 0.70, Estimated Creat Clear 39, Estimated GFR 79, Est GFR ( Amer) 96, Glucose 92, Lactate 0.9, Calcium 9.3, Total Bilirubin 0.7, AST 27, ALT 14, Alkaline Phosphatase 82, Total Protein 7.0, Albumin 4.0, Globulin 3.0, Albumin/Globulin Ratio 1.3, Lipase 94 Orders (Tests/Meds): ED MEDICATIONS Discontinued Medications Generic Name Dose Route Start Last Admin Trade Name Freq PRN Reason Stop Dose Admin Iopamidol 75 ml 07/28/24 12:53 07/28/24 12:54 Iopamidol-370 (76%);100ml Bottle IV 07/28/24 12:54 75 ml ONCE ONE Administration Ondansetron HCl 4 mg 07/28/24 12:12 07/28/24 12:21 Ondansetron 4mg/2ml Vial IV 07/28/24 12:13 4 mg ONCE ONE Administration Sodium Chloride 10 ml 07/28/24 12:53 07/28/24 12:54 Sodium Chloride 0.9% 10ml Syr (Rad Only) IV 08/27/24 12:52 10 ml NEEDED PRN Administration Maintain IV Site ORDERS Category Date Time Status CT abdomen pelvis w con Stat Cat Scan 07/28/24 12:11 Completed Complete Blood Count Auto Diff Stat Lab 07/28/24 12:15 Completed Comprehensive Metabolic Panel Stat Lab 07/28/24 12:15 Completed Lactic Acid Stat Lab 07/28/24 12:15 Completed Lipase Stat Lab 07/28/24 12:15 Completed UA [Urinalysis and Microscopic] Stat Lab 07/28/24 12:09 Completed Urinalysis and Microscopic Stat Lab 07/28/24 12:11 Ordered ECG Data Tracing #1: Independently interpreted by me rate is 88, rhythm is regular, axis is normal, no ST elevation in anatomical contiguous leads, QTc 422. Critical Care <SHELBY Diaz - Last Filed: 07/28/24 14:55> Critical Care Time Critical Care Time: No
[2024-07-28] MEDS: ONDANSETRON 4MG/2ML VIAL 4 MG IV (12:21)
[2024-07-28 12:23] LABS: Basophils # 0.1 K/mm3 (0-0.2); Basophils % 1.1 % (0.1-2.0); Eosinophils # 0.2 K/mm3 (0.0-0.4); Eosinophils % 2.4 % (0.1-12.0); Hematocrit 41.7 % (37.0-47.0); Hemoglobin 13.4 g/dL (12.2-16.2); Lymphocytes # 1.3 K/mm3 (0.7-4.5); Lymphocytes % 21.3 % (10-50); Mean Corpuscular HGB Conc 32.1 g/dL (31.8-35.4); Mean Corpuscular Hemoglobin 29.5 pg (27.0-31.2); Mean Corpuscular Volume 91.9 fl (81-99); Mean Platelet Volume 10.7 fl (7.4-10.4); Monocytes # 0.4 K/mm3 (0.1-1.0); Monocytes % 6.4 % (1.7-9.3); Neutrophils # 4.3 K/mm3 (1.8-7.8); Neutrophils % 68.6 % (37.0-80.0); Platelet Count 210 K/mm3 (142-424); Red Blood Count 4.54 M/mm3 (4.20-5.40); Red Cell Distribution Width 12.9 % (11.5-17.5); White Blood Count 6.2 K/mm3 (4.8-10.8)
[2024-07-28 12:29] LABS: Chloride 103 mmol/L (98-107); Sodium 139 mmol/L (136-145)
[2024-07-28 12:30] LABS: Potassium 4.2 mmoL/L (3.5-5.1)
[2024-07-28 12:32] LABS: Anion Gap 9.2 mEq/L (5-15); Blood Urea Nitrogen 17 mg/dl (7-17); Carbon Dioxide 31 mmol/L (22.0-30.0); Creatinine Clearance Estimated 39 mL/min (50-200); Estimated Glomerular Filt Rate 79 ml/min (>60); GFR (African American) 96 ML/MIN (>60)
[2024-07-28 12:33] LABS: WBC,Urine Occasional #/hpf (0-3)
[2024-07-28 12:33] LABS: Alanine Aminotransferase 14 U/L (12-78); Albumin/Globulin Ratio 1.3 (1.1-1.8); Alkaline Phosphatase 82 U/L (38-126); Aspartate Amino Transferase 27 U/L (14-36); Bilirubin,Total 0.7 mg/dl (0.2-1.3); Calcium 9.3 mg/dl (8.4-10.2); Glucose 92 mg/dl (74-100)
--- NOTE | 2024-07-28 12:40 | PC.NURSE ---
patient gone to CT
[2024-07-28] MEDS: SODIUM CHLORIDE 0.9% 10ML SYR (RAD ONLY) 10 ML IV (12:54)
[2024-07-28] MEDS: IOPAMIDOL-370 (76%);100ML BOTTLE 75 ML IV (12:54)
[2024-07-28 13:16] LABS: Lactic Acid 0.9 mmol/L (0.7-2.1)
[2024-07-28 13:19] LABS: Lipase 94 U/L (23-300)
--- OUTSIDE RECORDS SUMMARY | 2024-08-01 19:59 | XMS_ITS | Continuity of Care Document ---
Author Organization [facility] Address [address] [place] [address] Care Team Providers Care Technician Name Role Phone TODD BARTON Primary Care Provider RAGHAV RANGEL Early Childhood Services Coordinator DELORIS RICHARDS Finishing Lab Technician Assessment Encounter Date Assessment Date Assessment LastModified by Organization Details LastModified Time 07/29/2024 07/29/2024 Mrs. Brown is a very pleasant, 84 y.o. patient with a history of GERD, osteoarthritis, osteoporosis, and hypertension who was originally seen on 04/26/2023 at the request of Dr. Todd Barton (Primary Care Provider - [place], [place]) for an evaluation of hypertension and cardiac murmur. She was last seen in the office on 07/26/23. To review: Symptomatically, the patient reports that she has been told that she has a cardiac murmur for several years. Currently, the murmur was louder during February 2023 ER visit than it had been before and an echocardiogram was performed. Please see below for details regarding that report. Additionally, she reports increased dyspnea on exertion and exercise intolerance over the past several months. She denies any chest pain or other cardiovascular symptoms associated with this dyspnea. Since being started on amlodipine, she reports bilateral lower extremity edema. The patient denies chest pain, PND, orthopnea, near syncope, and syncope. She denies worsening of baseline PHILLIPS since last visit. Overall health is reported as stable. Patient returns to the clinic today for a scheduled follow-up visit. RTC: 1 year with EKG and Echocardiogram CV study: Echocardiogram (re: Aortic Stenosis) at 1 year visit Not available 07/29/2024 14:14:37 Plan of Treatment Reminders Order Date Submit Date Provider Last Modified By Organization Details Last Modified Time Details Appointments None record ed. Lab None record ed. Referral None record ed. Procedures None record ed. Surgeries None record ed. Imaging None record ed. Medication Orders None record ed. Patient TargetsNo targets recorded. Patient Instructions Encounter Date Encounter Id Patient Instructions Last Modified By Organization Details Last Modified Time 07/29/2024 [id number] high blood pressure: care instructions Not available 07/29/2024 14:14:38 Reason for Referral None Reported. Problems Name Problem SNOMED Code Status Onset Date Resolution Date Notes Provider Name and Address Organization Details Recorded Time Lentigo Active 2015 From Automated Load;Provi julio: Ari Pierce;S tatus: Active Not Available [facility] 6 05:19:10 Hemangiom a 051127549 Active 2015 From Automated Load;Provi julio: Ari Pierce;S tatus: Active Not Available [facility] 6 05:19:10 Inflamed seborrhei c keratosis 496668694 Active 2015 From Automated Load;Provi julio: Ari Pierce;S tatus: Active Not Available [facility] 6 05:19:10 Abdominal pain 28518226 Active 2015 From Automated Load;Provi julio: Destiny Freedman;Sta tus: Active Not Available [facility] 6 05:19:10 Idiopathi c osteoarth ritis 521870058 Active 2014 From Automated Load;Provi julio: Dina Anderson;St atus: Active Not Available [facility] 6 05:19:10 Osteoporo sis 13674900 Active 2014 From Automated Load;Provi julio: Dina Anderson;St atus: Active Not Available [facility] 6 05:19:10 Gastroint estinal tract finding Active 2015 From Automated Load;Provi julio: Destiny Freedman;Sta tus: Active Not Available [facility] 6 05:19:10 Constipat ion 02922429 Active 2015 From Automated Load;Provi julio: Destiny Freedman;Sta tus: Active Not Available [facility] 6 05:19:10 Senile hyperkera tosis 166393270 Active 2015 From Automated Load;Provi julio: Ari Pierce;S tatus: Active Not Available [facility] 6 05:19:10 Seroposit nellie rheumatoi d arthritis 486571268 Active 2014 From Automated Load;Provi julio: Vazquez Rangel;Sta tus: Active Not Available [facility] 6 05:19:10 Fibromyal suman 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 Procedures Surgical History Date Name Laterality Status Provider Name and Address Organization Details Recorded Time 01/11/20 24 Electromyography (EMG) with Nerve Conduction Study (NCV) completed Vivian Andino (Nicky) [facility] 01/11/2024 15:16:36 06/07/19 24 Stress Test - Nuclear Lexiscan completed DELORIS RICHARDS MD [address] [place] [address], [phone], [facility] 06/07/2023 15:58:18 04/26/19 24 EKG completed DELORIS RICHARDS MD [address] [place] [address], [phone], [facility] 04/26/2023 16:23:01 08/24/19 23 DXA Low Bone Mass 2 - Tx completed AKIRA DACOSTA MD [address] [place] [address], [phone], [facility] 08/23/2022 16:43:14 12/20/19 17 Date of Last Colonoscopy completed Winifred Andersenugh [facility] 02/01/2017 14:46:01 04/24/19 17 total knee replacement completed DELORIS STARR APRN [address] [place] [address], [phone], [facility] 06/18/2021 14:24:37 03/10/20 16 Date of Last Mammogram completed Winifred Sweeney [facility] 02/01/2017 14:45:41 03/02/20 15 Most Recent Bone Density completed [facility] 02/01/2017 14:46:22 02/12/20 15 Date of Last Pap Smear completed [facility] 02/01/2017 14:45:28 04/24/18 60 hysterectomy completed DELORIS STARR, DURALUMIN [employer] [address] [place], [phone], [facility] 06/18/2021 14:24:58 tonsillectomy completed Patt Eliane [facility] 12/06/2023 10:48:30 total knee replacement completed Araceli Whitfield [facility] 04/26/2023 14:09:17 Appendectomy completed Patt Eliane [facility] 12/06/2023 10:48:14 Cholecystectomy completed Patt Eliane [facility] 12/06/2023 10:48:53 Removal of ovarian cyst(s) completed Patt Eliane [facility] 12/06/2023 10:49:23 inguinal hernioplasty completed Patt Eliane [facility] 12/06/2023 10:49:42 Imaging Results None recorded. Procedure Notes None recorded. Medical Equipment None Reported. Allergies Allergen ID Allergen Name Allergen Category Reaction Reaction Severity Criticality Documentation Date Start Date Code Code System Note Provider Name and Address Organization Details Recorded Time 444989 streptomy marita sulfate medicatio n Not available Not available Not available 03/17/20162005 08866 RxNorm Comme nt: Creat ed By: Loly Mann ateelma Date: 02/06 11:25 :07 AM; Everton Chapman [facility] 0 14:44:50 946458 albuterol medicatio n Not available Not available Not available 03/18/20162005 435 RxNorm Patt Eliane [facility] 4 10:44:13 704576 lisinopri l medicatio n Not available Not available Not available 12/25/2019 90723 RxNorm [facility] 0 14:44:58 669307 cetirizin e medicatio n Not available Not available Not available 12/25/201952058 RxNorm Toscano Ari [facility] 0 14:44:55 Medications Name Sig Start Date Stop Date Status Note LastModified by Organization Details LastModified Time celecoxib 200 mg capsule Take 1 capsule every day by oral route for 90 days. 12/05 completed Not Available Not Available Not Available vitamin A 2,400 mcg capsule daily 2023 active Not Available Not Available Not Avai lable atorvasta tin 10 mg tablet Take 1 tablet every day by oral route. 07/29 completed Not Available Not Available Not Available lisinopri l 20 mg tablet Take 1 tablet twice a day by oral route. active Not Available Not Available No t Available prednison e 5 mg tablet Daily 02/01 completed Instruct ions: take 3 tabs daily x 1 week; 2 tabs daily x 1 week then 1 tab daily until follow up;Frequ ency: daily;Me dication Descript ion: predniso ne; Dosage:a s directed ; Route:or al; refills: 0; Quantity :90 tablet Not Available Not Available Not Available fexofenad ine 180 mg tablet Daily 02/01 completed Duration : 30 days;Gerber quency: daily;Me dication Descript ion: fexofena dine; Dosage:1 ; Route:or al; refills: 5; Quantity :30 tablet Not Available Not Available Not Available amlodipin e 5 mg tablet Take 1 tablet every day by oral route. 07/25 completed Not Available Not Available Not Available omeprazol e 40 mg capsule,d elayed release Daily 02/01 completed Duration : 30 days;Gerber quency: daily;Me dication Descript ion: omeprazo le; Dosage:1 ; Route:or al; refills: 5; Quantity :30 delayed release capsule Not Available Not Available Not Available FiberCon 625 mg tablet Daily 02/01 completed Frequenc y: daily;Me dication Descript ion: polycarb ophil; Dosage:2 ; Route:or al; refills: 0 Not Available Not Available Not Available alprazola m 0.25 mg tablet Daily 12/05 completed Duration : 10 days;Gerber quency: daily;Al t Frequenc y: prn;Medi cation Descript ion: alprazol am; Dosage:1 ; Route:or al; refills: 0; Quantity :20 Not Available Not Available Not Available Fosamax 70 mg tablet At Onset 02/01 completed Duration : 30 days;Ins truction s: 1 tablt wekly in am prior to brkfst;F requency : at onset;Me dication Descript ion: alendron ate; Dosage:1 ; Route:or al; refills: 12; Quantity :4 tablet Not Available Not Available Not Available Astelin 137 mcg (0.1 %) nasal spray Two times a day 11/24 completed Duration : 30 days;Ins truction s: 2 sprays in each nostril two times a day;Freq uency: bid;Medi cation Descript ion: azelasti ne nasal; Dosage:a s directed ; Route:na ramsey; refills: 0; Quantity :1 spray Not Available Not Available Not Available Tylenol 325 mg tablet Take 2 tablets every 6 hours by oral route as needed. 12/05 completed Not Available Not Available Not Available celecoxib 100 mg capsule Take 1 capsule every day by oral route. active Not Available Not Available No t Available Woodlawn 5 mg-325 mg tablet Take 1 tablet every 6 hours by oral route. 12/24 completed Not Available Not Available Not Available lisinopri l 40 mg tablet Take 1 tablet every day by oral route. 12/05 completed Not Available Not Available Not Available dicyclomi ne 10 mg capsule 02/01 completed Medicati on Descript ion: dicyclom ine; Dosage:1 -2; Route:or al; refills: 0 Not Available Not Available Not Available meclizine 25 mg chewable tablet Chew 1 tablet 3 times a day by oral route. 11/24 completed Not Available Not Available Not Available Celebrex 400 mg capsule Take 1 capsule every day by oral route. 11/24 completed Not Available Not Available Not Available memantine 10 mg tablet 1 tablet in AM and 1 tablet at evening meal 2023 active Not Available Not Available Not Avai lable omeprazol e 20 mg oral packet Take by oral route. 11/24 completed Not Available Not Available Not Available Woodlawn 04/26 completed Not Available Not Available Not Available Vitamin C active Not Available Not Aimee ilable Not Available atorvasta tin 11/24 completed Not Available Not Available Not Available omeprazol e 04/26 completed Not Available Not Available Not Available Fish Oil 02/01 completed Medicati on Descript ion: omega-3 polyunsa turated fatty acids; Route:or al; refills: 0 Not Available Not Available Not Available Vitamin D3 daily 12/05 completed Not Available Not Available Not Available Metamucil daily active Not Available Not Aimee ilable Not Available Miralax 2023 active Medicati on Descript ion: polyethy rodolfo glycol 3350; Route:or al; refills: 0 Not Available Not Available Not Available Vitamin B12 daily 2023 active Not Available Not Available Not Avai lable cetirizin e 10 mg capsule Take by oral route. 11/24 completed Not Available Not Available Not Available omega 3 850 mg-dha-ep a-fish oil 1,400 mg capsule daily 12/05 completed Not Available Not Available Not Available PreserVis ion AREDS 2 Plus Multivit 200 mcg-15 mcg-5 mg-1 mg capsule Take 1 capsule twice a day by oral route. active Not Available Not Available No t Available Vitals Date Recorded Body height Body mass index (BMI) Body weight Heart rate Respiratory rate Oxygen saturation Oxygen saturation in Arterial blood by Pulse oximetry Systolic blood pressure Diastolic blood pressure Provider Name and Address Organization Details Last Updated DateTime 5 165.1 cm 22.2 kg/m2 45187.5 g 84 /min 16 /min 97 % 97 % 118 mm[Hg] 64 mm[Hg] Rosaline Cole [facility] 5 13:40:58 Social History Question Answer Notes LastModified by Organizat ion Details LastModified Time Tobacco Smoking Status Never Smoker Chel Naranjo null, [facility] 04/14/2016 16:07:14 What Is Your Level Of Alcohol Consumption? None Information not available 02/01/2017 What Is Your Level Of Caffeine Consumption? Moderate Information not available 02/01/2017 Are You Currently Employed? No Information not available 12/06/2023 What Was The Date Of Your Most Recent Tobacco Screening? 07/29/2024 [email or web address] Information not available 07/29/2024 Has Tobacco Cessation Counseling Been Provided? No Information not available 04/26/2023 Have You Recently Traveled Abroad? No [email or web address] Information not available 05/26/2022 Do You Or Have You Ever Used Any Other Forms Of Tobacco Or Nicotine? No Information not available 07/26/2023 Sex: Unknown Functional Status None recorded. Mental Status None recorded. Family History Relationship Description Onset Age of this Age Resolved Age Notes LastModified by Organization Details LastModified Time Father Hypertensive disorder [email or web address] Not available 2023 10:50:21 Father Heart disease [email or web address] Not available 2023 10:50:37 Brother Hypertensive disorder [email or web address] Not available 2023 10:50:21 Mother Family history of malignant neoplasm ovaria n Not available 12/06/2023 10:50:55 Maternal Aunt Family history of malignant neoplasm colon [email or web address] Not available 2023 10:51:08 Medical History Condition Response Diabetes N Bleeding Disorder N Arthritis Y Emphysema N Heart Disease N Acid Reflux (GERD) Y Rheumatoid Arthritis Y Hypertension Y COPD N Asthma N Gynecological History Statement/Question Response If Post Menopausal, Age at Menopause 48 Date of Last Mammogram 03/10/2016 Date of Last Colonoscopy 12/19/2016 Most Recent Bone Density 03/02/2015 Menses Monthly N Date of Last Pap Smear 02/11/2015 Age at Menarche 13 Obstetrics History GPAL:G 2 P 2 0 0 2 Type Value Full Term 2 Living 2 Total 2 Past Encounters Encounter ID Performer Location Encounter Start Date Encounter Closed Date Diagnosis/Indication Diagnosis SNOMED-CT Code Diagnosis ICD10 Code Diagnosis Note [id number] DELORIS RICHARDS MD [facility] [address] [place] [address] ,[address] [place] [address] 07/29/2024 13:21:25 07/29/2024 14:40:05 Systolic murmur 24911216 R01.1 Murmurs best heard at left upper sternal border but can also be heard at right upper sternal border, apex to the left axilla, and just medial to the right scapula. Patient states that she had rheumatic fever as a child. Echocardio gram - March 07, 2023 ([facility]) -report was reviewed at a previous visit: LVEF=60%, grade 2 diastolic dysfunctio n, mild RV dilatation with normal systolic function, severe left atrial dilatation with mild right atrial dilatation , thickened aortic valve with Moderate , Moderate AI, and mitral valve with no evidence of mitral valve stenosis and a mean gradient of 4 mmHg and mild MR, mild TR, normal aortic root size, no pericardia l effusion, normal estimated RVSP of 25-30 mmHg.-The results of this study were discussed in detail with the patient and her daughter at a previous office visit. Echocardio gram (03/10/24) :Left ventricula r ejection fraction = 60-65%, moderate , moderate AI, mild-moder ate MS, mild MR, mild TR, mild PI, abnormal diastolic function, severe left atrial enlargemen t, aorta and IVC of normal dimensions , estimated PA systolic pressure is normal at 29 mmHg. RECOMMENDA TION: Repeat echo 1 year from now to reassess & AI severities . Essential hypertension 59709976 I10 BP today was =118/64 mmHg, HR=84 bpm; continue with current meds. - Lisinopril 40 mg 1 p.o. daily. She did not tolerate Amlodipine due to BLE edema. Recent blood pressure log was reviewed and this revealed systolic blood pressure range 130-160 mmHg/diast olic blood pressure range 60-70 mmHg. Patient is recommende d to check BPs at home periodical ly & bring BP log to next visit. A low sodium (< 2000 mg/day) diet is also recommende d. Dyspnea on exertion 6084 5006 R06.09 She reports no recent worsening of her dyspnea. Based on history and physical exam, the patient's dyspnea is of unknown etiology. Echocardio gram (03/10/24) :Left ventricula r ejection fraction = 60-65%, moderate , moderate AI, mild-moder ate MS, mild MR, mild TR, mild PI, abnormal diastolic function, severe left atrial enlargemen t, aorta and IVC of normal dimensions , estimated PA systolic pressure is normal at 29 mmHg. LexiScan nuclear stress testing (06/07/23): 1. Normal myocardial perfusion at rest and stress.2. LVEF=68%, with normal regional wall motion.3. EKG at stress revealed [address] depression in the inferior leads.A printed copy of this report was given to the patient today for her records. Aortic valve stenosis 60 123305 I35.0 Murmurs best heard at left upper sternal border but can also be heard at right upper sternal border, apex to the left axilla, and just medial to the right scapula. Patient states that she had rheumatic fever as a child. Echocardio gram - March 07, 2023 ([facility]) -report was reviewed at a previous visit: LVEF=60%, grade 2 diastolic dysfunctio n, mild RV dilatation with normal systolic function, severe left atrial dilatation with mild right atrial dilatation , thickened aortic valve with Moderate , Moderate AI, and mitral valve with no evidence of mitral valve stenosis and a mean gradient of 4 mmHg and mild MR, mild TR, normal aortic root size, no pericardia l effusion, normal estimated RVSP of 25-30 mmHg.-The results of this study were discussed in detail with the patient and her daughter at a previous office visit. Echocardio gram (03/10/24) :Left ventricula r ejection fraction = 60-65%, moderate , moderate AI, mild-moder ate MS, mild MR, mild TR, mild PI, abnormal diastolic function, severe left atrial enlargemen t, aorta and IVC of normal dimensions , estimated PA systolic pressure is normal at 29 mmHg. We discussed role of TAVR (if needed) and testing (DAT & coronary angiogram) as part of possible future work-up. RECOMMENDA TION: Repeat echo 1 year from now to reassess & AI severities . Health Concerns Section Related Observation LastModified by Organization Detai ls LastModified Time None Recorded Concern Status LastModified by Organization Details LastModified Time None Recorded Payers Encounter Date Sequence Insurance Name Policy Number Policy Goodson Covered Member ID Goodson Member ID Guarantor Name 07/29/2024 1 [place] Lauren Brown [id number] Lauren Brown 07/29/2024 2 [place] [id number] Lauren Brown [id number] Lauren Brown Notes Date Note Type Note Provider Name and Address Organization Details Recorded Time 07/29/2024 text/html Mrs. Brown is a very pleasant, 84 y.o. patient with a history of GERD, osteoarthritis, osteoporosis, and hypertension who was originally seen on 04/26/2023 at the request of Dr. Todd Barton (Primary Care Provider - [place], [place]) for an evaluation of hypertension and cardiac murmur. She was last seen in the office on 07/26/23.To review:Symptomatical ly, the patient reports that she has been told that she has a cardiac murmur for several years. Currently, the murmur was louder during February 2023 ER visit than it had been before and an echocardiogram was performed. Please see below for details regarding that report. Additionally, she reports increased dyspnea on exertion and exercise intolerance over the past several months. She denies any chest pain or other cardiovascular symptoms associated with this dyspnea. Since being started on amlodipine, she reports bilateral lower extremity edema. The patient denies chest pain, PND, orthopnea, near syncope, and syncope. She denies worsening of baseline PHILLIPS since last visit. Overall health is reported as stable. Patient returns to the clinic today for a scheduled follow-up visit. DELORIS RICHARDS MD [facility] [place], [phone], [facility] 07/29/2024 14:16:07 OBGyn Episode No OBEpisode recorded.
--- OUTSIDE RECORDS SUMMARY | 2024-08-01 19:59 | XMS_ITS | Data Portability ---
Author Organization [facility] [place]a [place] [facility] Address [address] [place] [address] [address] [place] [address] Care Team Providers Care Log Turner Name Role Phone TODD BARTON Primary Care Provider RAGHAV RANGEL Tool Filer Hand DELORIS RICHARDS Wool Supplier Assessment Encounter Date Assessment Date Assessment LastModified by Organization Details LastModified Time 07/26/2023 07/26/2023 Mrs. Roe is a very pleasant, 83 y.o. patient with a history of GERD, osteoarthritis, osteoporosis, and hypertension who was originally seen on 04/26/2023 at the request of Dr. Todd Barton (Primary Care Provider - [place], [place]) for an evaluation of hypertension and cardiac murmur. To review: Symptomatically, the patient reports that [...] pain, PND, orthopnea, near syncope, and syncope. Overall health is reported as stable. Patient returns to the clinic today for a scheduled follow-up visit. RTC: March 2024 CV Study: Echocardiogram (03/17) Not available 07/27/2023 08:39:23 12/06/2023 12/06/2023 Assessment: 1. Impaired balance 2. Etiology is possible neuropathy 3. I advised purchase an adjustable cane and use it 4. I reviewed the report of the brain MRI 07/06/23 with good report, she has mild age-related changes. She does not have large changes, hydrocephalus, or brain bleeding. Plan: 1. Submit blood tests today looking for possible causes of neuropathy 2. Schedule EMG 3. I advised the patient's daughter, Kathi on the best adjustable cane for the patient 4. Follow up after nerve conduction study. NOTE: PCP is Dr. Todd Barton. [email or web address] Not available 12/06/2023 11:23:56 01/11/2024 01/11/2024 1. Impaired balance 2. 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 Unsteady gait Plan 1. I advised take a multiple vitamin each day 2. I said also take a B-complex vitamin each day 3. There is no specific medicine that can improve peripheral nerve health 4. I advised obtain a cane to improve walking DB [email or web address] Not available 07/22/2024 13:06:30 07/29/2024 07/29/2024 Mrs. Roe is a very pleasant, 84 y.o. patient with a history of GERD, osteoarthritis, osteoporosis, and hypertension who was originally seen on 04/26/2023 at the request of Dr. Todd Barton (Primary Care Provider - [place], [place]) for an evaluation of hypertension and [...] Details Last Modified Time Details Appointments None recorded. Lab vitamin B12, serum 2023 024 [facility], [address] [place] [address], [id number], 4 13:16:25 vitamin B1 (thiamine), blood 2023 024 [facility], [address] [place] [address], [id number], 4 12:04:22 TSH, serum, reflex free T4 2023 024 [facility], [address] [place] [address], [id number], 4 12:55:35 immunofixat ion, serum 2023 024 [email or web address] [facility], [address] [place] [address], [id number], 4 08:39:42 copper, serum or plasma 2023 024 [facility], [address] [place] [address], [id number], 4 16:50:05 glycohemogl obin, total, blood 2023 024 [facility], [address] [place] [address], [address], 4 12:52:48 CBC w/ auto diff 2023 024 [facility], [address] [place] [address], [id number], 4 13:08:54 CMP, serum or plasma 2023 024 [email or web address] [facility], [address] [place], [address], 12:55:02 Referral None recorded. Procedures nerve conduction study/EMG, lower extremity (PROC) 2023 024 [email or web address] Luke Smallwood MD, [address] [place], [address], 11:37:28 Surgeries None recorded. Imaging None recorded. Medication Orders None recorded. Patient TargetsNo targets recorded. Patient Instructions Encounter Date Encounter Id Patient Instructions Last Modified By Organization Details Last Modified Time 07/26/2023 [id number] high blood pressure: care instructions Not available 07/26/2023 14:59:22 12/06/2023 [id number] CATEGORY DESCRIPTION MINUTES Prepare to see the patient (e.g. review of tests) Obtain/review separately obtained history Perform medically appropriate exam/evaluation 15 Order medications, tests, or procedures 5 Microbiology Lab Technician/educate the patient/family/car egiver 10 Refer/communicate w/other healthcare professionals Document clinical information into health record 15 Non-billable independent interp of results Non-billable care coordination TOTAL TIME 45 78518 (15-29) 66823 (30-44) 96874 (45-59) 98798 (60-74) 72928 (10-19) 49570 (20-29) 88897 (30-39) 77040 (40-54) Not available 12/12/2023 22:48:20 07/29/2024 [id number] high blood pressure: care instructions Not available 07/29/2024 14:14:38 Reason for Referral None Reported. Results Created Date Observation Date Name Description Value Unit Range Abnormal Flag Note LastModifiedBy Organization Detail LastModifiedTime 12/06/1912/06/2023 GLYCO HEMOG LOBIN A1C glyco HGB A1C 5.0 % 0.0-5. 6 normal Not Available [facility] [address] [place], [address], 12/06/2023 12:52:48 12/06/1912/06/2023 GLYCO HEMOG LOBIN A1C estimated avg. glucose 97 mg/dL _(doc c) normal A1c value s betwe en 5.7% to 6.4% indic ate predi abete s. Resul ts 6.5% or great er is diagn ostic of diabe francheska. Ameri can Diabe [employer] [employer] iatio n (diab etes. org) Not Available [facility] [address] [place] [address], [address], 12/06/2023 12:52:48 12/06/19 24 12/06/2023 COMP. METAB OLIC PANEL glucose 89 mg/dL 74-100 normal Not Available [facility] [address] [place] [address], [address], 12/06/2023 12:55:02 12/06/19 24 12/06/2023 COMP. METAB OLIC PANEL blood urea nitrogen 16 mg/dL 6-20 normal Not Available [facility] [address] [place] [address], [address], 12/06/2023 12:55:02 12/06/19 24 12/06/2023 COMP. METAB OLIC PANEL creatinine 0.80 mg/dL 0.50-0 .95 normal Not Available [facility] [address] [place] [address], [address], 12/06/2023 12:55:02 12/06/19 24 12/06/2023 COMP. METAB OLIC PANEL BUN/creatini ne ratio 20 (calc ) 10-20 normal Not Available [facility] [address] [place] [address], [address], 12/06/2023 12:55:02 12/06/19 24 12/06/2023 COMP. METAB OLIC PANEL sodium 142 mmol/ L 136-14 5 normal Not Available [facility] [address] [place] [address], [id number], 12/06/2023 12:55:02 12/06/19 24 12/06/2023 COMP. METAB OLIC PANEL potassium 4.4 mmol/ L 3.4-5. 0 normal Not Available [facility] [address] [place] [address], [address], 12/06/2023 12:55:02 12/06/19 24 12/06/2023 COMP. METAB OLIC PANEL chloride 105 mmol/ L 98-107 normal Not Available [facility] [address] [place] [address], [address], 12/06/2023 12:55:02 12/06/19 24 12/06/2023 COMP. METAB OLIC PANEL carbon dioxide 28 mmol/ L 22-31 normal Not Available [facility] [address] [place] [address], [address], 12/06/2023 12:55:02 12/06/19 24 12/06/2023 COMP. METAB OLIC PANEL anion gap 9 (calc ) 7-25 normal Not Available [facility] [address] [place] [address], [address], 12/06/2023 12:55:02 12/06/19 24 12/06/2023 COMP. METAB OLIC PANEL calcium 9.2 mg/dL 8.6-10 .2 normal Not Available [facility] [address] [place] [address], [address], 12/06/2023 12:55:02 12/06/19 24 12/06/2023 COMP. METAB OLIC PANEL total protein 6.5 g/dL 6.4-8. 3 normal Not Available [facility] [address] [place] [address], [address], 12/06/2023 12:55:02 12/06/19 24 12/06/2023 COMP. METAB OLIC PANEL albumin 3.7 g/dL 3.5-5. 2 normal Not Available [facility] [address] [place] [address], [address], 12/06/2023 12:55:02 12/06/19 24 12/06/2023 COMP. METAB OLIC PANEL globulin 2.8 1.5-4. 5 normal Not Available [facility] [address] [place] [address], [address], 12/06/2023 12:55:02 12/06/19 24 12/06/2023 COMP. METAB OLIC PANEL albumin/glob ulin ratio 1.3 (calc ) 1.1-2. 5 normal Not Available [facility] [address] [place] [address], [address], 12/06/2023 12:55:02 12/06/19 24 12/06/2023 COMP. METAB OLIC PANEL bilirubin, total 0.6 mg/dL 0.1-1. 2 normal Not Available [facility] [address] [place] [address], [address], 12/06/2023 12:55:02 12/06/19 24 12/06/2023 COMP. METAB OLIC PANEL alkaline phosphatase 79 U/L 30-121 normal Not Available [facility] [address] [place] [address], [address], 12/06/2023 12:55:02 12/06/19 24 12/06/2023 COMP. METAB OLIC PANEL AST 17 U/L 0-32 normal Not Available [facility] [address] [place] [address], [address], 12/06/2023 12:55:02 12/06/19 24 12/06/2023 COMP. METAB OLIC PANEL ALT 9 U/L 0-33 normal Not Available [facility] [address] [place] [address], [address], 12/06/2023 12:55:02 12/06/19 24 12/06/2023 COMP. METAB OLIC PANEL GFR 72 >= 60 normal NOT E New calcu latio n for GFR (CKD- EPI 2020) is formu lateelma witho ut race adjus tment facto rs at the recom menda tion of the [facility] [employer] at[employer] and [facility] sarah [place] ty of Nephr ology . This calcu latio n has not been valid ated in pregn ant women . For krissy armstronge nts refer to https ://heber doss.tabitha salazar.o ace/pr jesse lester s/KDO QI/gf r_cal culat orPed Not Available [facility] [address] [place] [address], [address], 12/06/2023 12:55:02 12/06/19 24 12/06/2023 TSH WITH REFLE X FT4 TSH with reflex FT4 1.360 u[IU] /mL 0.270- 4.200 normal Not Available [facility] [address] [place] [address], [address], 12/06/2023 12:55:34 12/06/19 24 12/06/2023 COMPL ETE BLOOD COUNT white blood cells 5.1 10*3/ uL 3.8-10 .8 normal Not Available [facility] [address] [place], [address], 12/06/2023 13:08:54 12/06/19 24 12/06/2023 COMPL ETE BLOOD COUNT red blood cells 4.07 10*6/ uL 3.80-5 .20 normal Not Available [facility] [address] [place] [address], [address], 12/06/2023 13:08:54 12/06/19 24 12/06/2023 COMPL ETE BLOOD COUNT hemoglobin 12.4 g/dL 12.0-1 6.0 normal Not Available [facility] [place], [address], 12/06/2023 13:08:54 12/06/19 24 12/06/2023 COMPL ETE BLOOD COUNT hematocrit 36.7 % 35.0-4 7.0 normal Not Available [facility] [place], [address], 12/06/2023 13:08:54 12/06/19 24 12/06/2023 COMPL ETE BLOOD COUNT MCV 90 fL 80-100 normal Not Available [facility] [address] [place] [address], [address], 12/06/2023 13:08:54 12/06/19 24 12/06/2023 COMPL ETE BLOOD COUNT MCH 31 pg 26-35 normal Not Available [facility] [address] [place] [address], [address], 12/06/2023 13:08:54 12/06/19 24 12/06/2023 COMPL ETE BLOOD COUNT MCHC 34 g/dL 32-36 normal Not Available [facility] [address] [place] [address], [address], 12/06/2023 13:08:54 12/06/19 24 12/06/2023 COMPL ETE BLOOD COUNT RDW 13.3 % 11.0-1 5.0 normal Not Available [facility] [address] [place] [address], [address], 12/06/2023 13:08:54 12/06/19 24 12/06/2023 COMPL ETE BLOOD COUNT MPV 10.1 fL 6.2-10 .5 normal Not Available [facility] [address] [place] [address], [address], 12/06/2023 13:08:54 12/06/19 24 12/06/2023 COMPL ETE BLOOD COUNT platelet count 173 10*3/ uL 150-40 0 normal Not Available [facility] [address] [place] [address], [address], 12/06/2023 13:08:54 12/06/19 24 12/06/2023 COMPL ETE BLOOD COUNT neutrophil,a bsolute 3.3 10*3/ uL 1.6-8. 4 normal Not Available [facility] [address] [place] [address], [address], 12/06/2023 13:08:54 12/06/19 24 12/06/2023 COMPL ETE BLOOD COUNT lymphocyte,a bsolute 1.2 10*3/ uL 0.4-5. 1 normal Not Available [facility] [address] [place] [address], [address], 12/06/2023 13:08:54 12/06/19 24 12/06/2023 COMPL ETE BLOOD COUNT monocyte,abs olute 0.4 10*3/ uL 0.0-1. 2 normal Not Available [facility] [address] [place] [address], [address], 12/06/2023 13:08:54 12/06/19 24 12/06/2023 COMPL ETE BLOOD COUNT eosinophil,a bsolute 0.1 10*3/ uL 0.0-0. 8 normal Not Available [facility] [address] [place] [address], [address], 12/06/2023 13:08:54 12/06/19 24 12/06/2023 COMPL ETE BLOOD COUNT basophil,abs olute 0.1 10*3/ uL 0.0-0. 3 normal Not Available [facility] [address] [place] [address], [address], 12/06/2023 13:08:54 12/06/19 24 12/06/2023 COMPL ETE BLOOD COUNT % neutrophils 65.0 % 42.0-7 8.0 normal Not Available [facility] [address] [place] [address], [address], 12/06/2023 13:08:54 12/06/19 24 12/06/2023 COMPL ETE BLOOD COUNT % lymphocytes 24.2 % 11.0-4 7.0 normal Not Available [facility] [address] [place] [address], [address], 12/06/2023 13:08:54 12/06/19 24 12/06/2023 COMPL ETE BLOOD COUNT % monocytes 7.5 % 0.0-11 .0 normal Not Available [facility] [address] [place] [address], [address], 12/06/2023 13:08:54 12/06/19 24 12/06/2023 COMPL ETE BLOOD COUNT % eosinophils 2.0 % 0.0-7. 0 normal Not Available [facility] [address] [place] [address], [address], 12/06/2023 13:08:54 12/06/19 24 12/06/2023 COMPL ETE BLOOD COUNT % basophils 1.3 % 0.0-3. 0 normal Not Available [facility] [address] [place] [address], [address], 12/06/2023 13:08:54 12/06/19 24 12/06/2023 COMPL ETE BLOOD COUNT nucleated red cells 0.0 % 0.0-0. 9 normal Not Available [facility] [address] [place] [address], [address], 12/06/2023 13:08:54 12/06/19 24 12/06/2023 COMPL ETE BLOOD COUNT nucleated RBCs, absolute 0.00 10*3/ uL not estab. normal Not Available [facility] [address] [place] [address], [address], 12/06/2023 13:08:54 12/06/19 24 12/06/2023 VITAM IN B12 vitamin B12 1957 pg/mL 232-12 45 high Not Available [facility] [address] [place] [address], [address], 12/06/2023 13:16:25 12/06/19 24 12/09/2023 COPPE R, PLASM A copper, plasma 143 mcg/d L 70-175 normal This test was devel oped and its serena tical perfo rmanc e liz cteri stics have been deter mined by [facility] priya qunitero. It has not been clear ed or appro billy by the FDA. This assay has been valid ated pursu ant to the CLIA regul ation s and is used for clini doc purpo ses. Not Available [facility] [place], [address], 12/09/2023 16:50:05 12/06/19 24 12/11/2023 VITAM IN B1 vitamin B1 15 nmol/ L 8-30 normal (Note ) Vitam in suppl ement ation withi n 24 hours prior to blood draw may affec t the accur acy of the [facility] ts. This test was devel oped and its serena tical perfo rmanc e liz cteri stics have been deter mined by [facility]. It has not been clear ed or appro billy by FDA. This assay has been valid ated pursu ant to the CLIA regul ation s and is used for clini doc purpo ses. MDF med fusio n [address] [facility] [address] [facility] [address] [phone] Ithie l Hunter Pennington MD, PhD Not Available [facility] [address] [place] [address], [address], 12/11/2023 12:04:22 12/06/19 24 12/14/2023 IMMUN OFIXA TION, SERUM interpretati on SEE NOTE normal Lexus l jessie rn. No monoc lonal prote ins detec leo. Not Available [facility] [address] [place], [address], 12/14/2023 10:24:32 12/06/19 24 07/06/2023 MRI, head, w/o contr ast No observ ation record ed. BARCODE Not Available 2023 10:58:08 01/11/20 24 01/11/2024 nerve condu ction study /EMG, lower extre mity (PROC ) No observ ation record ed. [email or web address] Luke Smallwood MD [address] [place] [address], [address], 01/11/2024 15:37:23 02/29/20 24 02/29/2024 US, doppl er echoc ardio gram, w/ color flow No observ ation record ed. [email or web address] [facility] Cardiology [address], [place], [address], 03/08/2024 14:35:32 Result Notes None recorded. Problems Name Problem SNOMED Code Status Onset Date Resolution Date Notes Provider Name and Address Organization Details Recorded Time Lentigo Active 2015 From Automated Load;Provi julio: Ari Pierce;Rhea tatus: Active Not Available [facility] 6 05:19:10 Hemangiom a 954585357 Active 2015 From Automated Load;Provi julio: Ari Pierce;S tatus: Active Not Available [facility] 6 05:19:10 Inflamed seborrhei c keratosis 980682854 Active 2015 From Automated Load;Provi julio: Delfino Pierce tatus: Active Not Available [facility] 6 05:19:10 Abdominal pain 83320952 Active 2015 From Automated Load;Provi julio: Destiny Freedman;Sta tus: Active Not Available [facility] 6 05:19:10 Idiopathi c osteoarth ritis 452289464 Active 2014 From Automated Load;Provi julio: Dina Silverio;St atus: Active Not Available [facility] 6 05:19:10 Osteoporo sis 23980080 Active 2014 From Automated Load;Provi julio: Dina Silverio;St atus: Active Not Available [facility] 6 05:19:10 Gastroint estinal tract finding Active 2015 From Automated Load;Provi julio: Destiny Freedman;Sta tus: Active Not Available [facility] 6 05:19:10 Constipat ion 59492387 Active 2015 From Automated Load;Provi julio: Destiny Freedman;Sta tus: Active Not Available [facility] 6 05:19:10 Senile hyperkera micki 077217686 Active 2015 From Automated Load;Provi julio: Ari Pierce;Rhea tatus: Active Not Available [facility] 6 05:19:10 Seroposit nellie rheumatoi d arthritis 259116624 Active 2014 From Automated Load;Provi julio: Abbas, Henry;Sta tus: Active Not Available [facility] 6 05:19:10 Fibromyal suman 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 ? [address] [place] [id number], Emma J (id #[id number], : 1940) [address],??[place]?[address] Phone:?? Fax:?? Encounter Summary - Progress Note Date Printed: ?07/27/2023 Documents sent via fax will include the followingmessage: This fax may contain sensitive and confidential personal health information that is being sent for the sole use of the intended recipient. Unintended recipients are directed to securely destroy any materials received. You are hereby notified that the unauthorized disclosure or other unlawful use of this fax or any personal health information is prohibited. To the extent patient information contained in this fax is subject to 42 CFR Part 2, this regulation prohibits unauthorized disclosure of these records. If you received this fax in error, please visit [email or web address] to notify the sender and confirm that the information will be destroyed. If you do not have internet access, please call to notify the sender and confirm that the information will be destroyed. Thank you for your attention and cooperation. [ID:[id number]] Patient Lauren Roe (83yo, F) #[id number] 1940 ?? Patient Demographics: Address [address] [address] ? Work Phone ?? Encounter Notes: Encounter Reason/Date recheck/Katherine prior 07/26/2023 - 03:00PM - CARDIOLOGY SB History of Present IllnessMrs. Kevin is a very pleasant, 83 y.o. patient with a history of GERD, osteoarthritis, osteoporosis, and hypertension who was originally seen on 04/26/2023 at the request of Dr. Todd Barton (Primary Care Provider - [place], [place]) for an evaluation of hypertension and cardiac murmur.To review:Symptomatically, the patient reports that she has been [...] pain, PND, orthopnea, near syncope, and syncope. Overall health is reported as stable. Patient returns to the clinic today for a scheduled follow-up visit. Review of SystemsAdditionally reports:A 14 point Review of Systems was completed. Cardiac ROS as noted in HPI; Non Cardiac: Negative for recent seizure or GI/ bleeding. Other systems reviewed, not pertinent to current illness or negative. ROS as noted in the HPI Vitals Ht: 5 ft 5 in Stated Wt: 142 lbs 3.2 oz With clothes BMI: 23.7 BP: 140/80 sitting L arm Pulse: 81 bpm O2Sat: 95% Room Air at Rest Results/InterpretationsNone recorded Physical ExamNo exam was performed today. Patient was accompanied by her family member today. We spent the entire visit discussing the results of recent CV test results. Procedure DocumentationNone recorded Assessment and PlanMrs. Kevin is a very pleasant, 83 y.o. patient with a history of GERD, osteoarthritis, osteoporosis, and hypertension who was originally seen on 04/26/2023 at the request of Dr. Todd Barton (Primary Care Provider - [place], [place]) for an evaluation of hypertension and cardiac murmur.To review:Symptomatically, the patient reports that she has been [...] pain, PND, orthopnea, near syncope, and syncope. Overall health is reported as stable. Patient returns to the clinic today for a scheduled follow-up visit. RTC: MarchV Study: Echocardiogram (03/17) 1. Systolic murmur-Murmurs best heard at left upper sternal border but can also be heard at right upper sternal border, apex to the left axilla, and just medial to the right scapula. Patient states that she had rheumatic fever as a child. Echocardiogram from March 07, 2023 from [facility]-report was reviewed today. This revealed left ventricular ejection fraction of 60%, grade 2 diastolic dysfunction, mild RV dilatation with normal systolic function severe left atrial dilatation with mild right atrial dilatation at thickened aortic valve with moderate aortic stenosis and moderate aortic regurgitation, and mitral valve with no evidence of mitral valve stenosis and a mean gradient of 4 mmHg and mild MR, mild TR, normal aortic root size, no pericardial effusion, normal estimated RVSP of 25-30 mmHg.-The results of this study were discussed in detail with the patient and her daughter today.A printed copy of this report was given to the patient today for her records. Recommendation: Repeat echocardiogram in February or March 2024 to reassess aortic valve stenosis and regurgitation severities. R01.1: Cardiac murmur, unspecified 2. Essential hypertension-BP today was =140/80 mmHg; continue with current meds. - Lisinopril 40 mg 1 p.o. daily. She did not tolerate Amlodipine due to BLE edema. Recent blood pressure log was reviewed and this revealed systolic blood pressure range 130-160 mmHg/diastolic blood pressure range 60-70 mmHg. Patient is recommended to check BPs at home periodically & bring BP log to next visit. A low sodium (< 2000 mg/day) diet is also recommended.I10: Essential (primary) hypertension HIGH BLOOD PRESSURE: CARE INSTRUCTIONS 3. Dyspnea on exertion-Based on history and physical exam, the patient's dyspnea is of unknown etiology. Echocardiogram: Repeat echo in 03/17 LexiScan nuclear stress testing (06/07/23):1. Normal myocardial perfusion at rest and stress.2. LVEF=68%, with normal regional wall motion.3. EKG at stress revealed [address] depression in the inferior leads.A printed copy of this report was given to the patient today for her records.R06.09: Other forms of dyspnea Return to Office LUKE SMALLWOOD MD for NEUROLOGY CONSULT at NEUROLOGY on 12/06/2023 at 11:00 AM CARDIO_ULTRASOUND for CARDIO ULTRASOUND at RADIOLOGY [facility] on 02/29/2024 at 01:00 PM DELORIS RICHARDS MD for RECHECK at CARDIOLOGY on 04/01/2024 at 02:00 PM Patient Medical History: Allergies List Reviewed Allergies ALBUTEROL: - Comment: Created By: Loly Fuentes;Created Date: 02/06/2006 11:23:28 AM; Medications Reviewed Medications NameDate Source ALPRAZolam 0.25 mg rdmfowMylrr32/02/16?ente lauro westfall.221 atorvastatin 10 mg tabletTake 1 tablet(s) every day by oral route.04/26/23?entered Araceli Whitfield celecoxib 200 mg capsuleTake 1 capsule(s) every day by oral route for 90 days.05/26/22?prescribed RAGHAV HENRY RANGEL MD lisinopriL 40 mg tabletTake 1 tablet(s) every day by oral route.04/26/23?entered Araceli Whitfield EiwoitjoJfxbdf32/03/24?e ntered Araceli Whitfield Dwomksf54/04/16?entered saltyi.242 omega 3 850 ke-bnu-ubj-fish oil 1,400 mg ejuettopeghy06/03/24?ent ered Araceli Whitfield TylenoL 325 mg tabletTake 2 tablet(s) every 6 hours by oral route as needed.04/26/23?entered Araceli Whitfield vitamin A 2,400 mcg /03/24?ent ered Araceli Whitfield Vitamin K82mbmmm58/03/24?entered Araceli Whitfield Vitamin D8npeph38/03/24?entered Araceli Whitfield Family HistoryReviewed Family History Father - No current problems or disability Mother - No current problems or disability mother ovarian ca., maternal aunt, colon ca Past Medical History Acid Reflux (GERD)Y Asthma N Bleeding Disorder N COPD N Diabetes N Heart Disease N HypertensionY Vaccine HistoryNone recorded Electronically Signed by: DELORIS RICHARDS MD RAGHAV HENRY RANGEL MD [address] [place] [address], [phone], [facility] 07/31/2023 08:52:14 Procedures Surgical History Date Name Laterality Status Provider Name and Address Organization Details Recorded Time 01/11/20 24 Electromyography (EMG) with Nerve Conduction Study (NCV) completed Vivian Andino (Nicky) [facility] 01/11/2024 15:16:36 06/07/19 24 Stress Test - Nuclear Lexiscan completed DELORIS RICHARDS MD [address] [place] [address], [phone], [facility] 06/07/2023 15:58:18 04/26/19 24 EKG completed DELORIS RICHARDS MD [address] [place] [address], [phone], [facility] 04/26/2023 16:23:01 08/24/19 23 DXA Low Bone Mass 2 - Tx completed AKIRA DACOSTA MD [address] [place] [address], [phone], [facility] 08/23/2022 16:43:14 12/20/19 17 Date of Last Colonoscopy completed [facility] 02/01/2017 14:46:01 04/24/19 17 total knee replacement completed DELORIS STARR, [employer] [address] [place], [address], [facility] 06/18/2021 14:24:37 03/10/20 16 Date of Last Mammogram completed [facility] 02/01/2017 14:45:41 03/02/20 15 Most Recent Bone Density completed [facility] 02/01/2017 14:46:22 02/12/20 15 Date of Last Pap Smear completed [facility] 02/01/2017 14:45:28 04/24/18 60 hysterectomy completed DELORIS STARR, [employer] [address] [place], [phone], [facility] 06/18/2021 14:24:58 tonsillectomy completed Patt Eliane [facility] 12/06/2023 10:48:30 total knee replacement completed Araceli Whitfield [facility] 04/26/2023 14:09:17 Appendectomy completed Patt Eliane [facility] 12/06/2023 10:48:14 Cholecystectomy completed Patt Eliane [facility] 12/06/2023 10:48:53 Removal of ovarian cyst(s) completed Patt Eliane [facility] 12/06/2023 10:49:23 inguinal hernioplasty completed Patt Eliane [facility] 12/06/2023 10:49:42 Imaging Results Imaging Date Name Status LastModified by Organiz ation Details LastModified Time 07/06/2023 MRI, head, w/o contrast completed BAR[facility] Information not available 12/06/2023 10:58:08 01/11/2024 nerve conduction study/EMG, lower extremity (PROC) completed [email or web address] Luke Smallwood MD [address] [place], [address], 01/11/2024 15:37:23 02/29/2024 US, doppler echocardiogram, w/ color flow completed [email or web address] [facility] Radiology Cardiology [address] , [place], [address], 03/08/2024 14:35:32 Procedure Notes None recorded. Medical Equipment None Reported. Allergies Allergen ID Allergen Name Allergen Category Reaction Reaction Severity Criticality Documentation Date Start Date Code Code System Note Provider Name and Address Organization Details Recorded Time 954992 streptomy marita sulfate medicatio n Not available Not available Not available 03/17/20162005 12987 RxNorm Comme nt: Creat ed By: Loly bucio Date: 02/06 11:25 :07 AM; Everton Chapman [facility] 0 14:44:50 740479 albuterol medicatio n Not available Not available Not available 03/18/20162005 435 RxNorm Patt Del Rio [facility] 4 10:44:13 748269 lisinopri l medicatio n Not available Not available Not available 12/25/2019 71248 RxNorm Everton Chapman [facility] 0 14:44:58 707052 cetirizin e medicatio n Not available Not available Not available 12/25/2019 22660 RxNorm Everton Chapman [facility] 0 14:44:55 Medications Name Sig Start Date [...] Not Available Not Available No t Available [place] 5 mg-325 mg tablet Take 1 tablet [...] completed Not Available Not Available Not Available [place] 04/26 completed Not Available Not Available Not [...] t Available Vitals Date Recorded Body height Provider Name an d Address Organization Details Last Updated DateTime 07/26/2023 165.1 cm Rosaline Cole [facility] 07/26/2023 14:23:26 Date Recorded Body mass index (BMI) Body weight Heart rate Oxygen saturation Oxygen saturation in Arterial blood by Pulse oximetry Systolic blood pressure Diastolic blood pressure Provider Name and Address Organization Details Last Updated DateTime 4 23.7 kg/m2 20043.8 4 g 81 /min 95 % 95 % 140 mm[Hg] 80 mm[Hg] Aracelicecil Marrey [facility] 4 15:11:42 Date Recorded Body height Body mass index (BMI) Body weight Oxygen saturation Oxygen saturation in Arterial blood by Pulse oximetry Heart rate Systolic blood pressure Diastolic blood pressure Provider Name and Address Organization Details Last Updated DateTime 4 165.1 cm 23.7 kg/m2 86623.9 2 g 96 % 96 % 80 /min 142 mm[Hg] 80 mm[Hg] Patt Del Rio [facility] 4 10:52:31 Date Recorded Body height Body mass index (BMI) Body weight Heart rate Oxygen saturation Oxygen saturation in Arterial blood by Pulse oximetry Systolic blood pressure Diastolic blood pressure Provider Name and Address Organization Details Last Updated DateTime 4 165.1 cm 24.5 kg/m2 42159.0 8 g 81 /min 98 % 98 % 138 mm[Hg] 80 mm[Hg] Shelbi Palacioslin [facility] 4 14:06:34 Date Recorded Body height Body mass index (BMI) Body weight Heart rate Respiratory rate Oxygen saturation Oxygen saturation in Arterial blood by Pulse oximetry Systolic blood pressure Diastolic blood pressure Provider Name and Address Organization Details Last Updated DateTime 5 165.1 cm 22.2 kg/m2 18841.5 g 84 /min 16 /min 97 % 97 % 118 mm[Hg] 64 mm[Hg] Rosaline Kelsey [facility] 13:40:58 Social History Question Answer Notes LastModified by Organizat ion Details LastModified Time Tobacco Smoking Status [facility] 16:07:14 What Is Your Level Of [...] Bleeding Disorder N Arthritis Y Emphysema N Acid Reflux (GERD) Y Heart Disease N Rheumatoid Arthritis Y Hypertension Y COPD N [...] SNOMED-CT Code Diagnosis ICD10 Code Diagnosis Note [id number] DINA SILVERIO APRN RHEUMATOL [address] [place] [address] 04/14/2016 14:41:41 04/14/2016 16:42:36 Osteoarthritis 373588694 M19.90 Osteoporosis 43511248 M8 1.0 Fibromyalgia 557623658 M 79.7 [id number] RONALD MATTHEWS MD [facility] [address] [place] [address] 02/01/2017 14:07:29 02/01/2017 15:18:26 Routine gynecologic examination done 3175202804 9101 Z01.419 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 Screening for malignant neoplasm of breast 984579833 Z12.31 [id number] JAZMYNE MARVIN APRN DERMATOLO GY [facility] [address] [place] [address] 12/25/2019 14:28:21 12/25/2019 15:04:14 Solar lentiginosis 090704368 L81.4 BENIGN APPEARANCE , PT REASSURED Raised akbar orrheic keratosis 1825852881 40550 L82.1 BENIGN APPEARANCE , PT REASSURED Multiple skin tags 19789 7009 L91.8 BENIGN APPEARANCE , PT REASSURED Hemangioma 970899868 D18 .00 BENIGN APPERANCE [id number] MD CODY GUEVARA III ENT [facility] CLOSED [address] [place] [address] 06/18/2021 14:02:25 06/21/2021 08:02:15 Impairment of balance 098045336 R26.89 History of cerebrovascular accident 036122351 Z86.73 Dizziness 627415258 R42 Denture present 65441861 5 Z97.2 Abnormal gait 37063336 R 26.9 Sensorineu ral hearing loss of bilateral ears 861165689 H90.3 History of fall 18244866 9 Z91.81 [id number] RAGHAV RANGEL MD RHEUMATOL OGY [address] [place] [address] 11/24/2021 12:34:11 11/24/2021 16:06:24 Osteoarthritis 692335609 M19.90 81-year-ol d female with clinical evidence of generalize d osteoarthr itis.Mecha nical pains. Status post bilateral knee replacemen ts, clinically stable. Slightly restricted internal rotation shoulders. No peripheral synovitis or effusions noted. She is on Celebrex 400 mg daily which she does not want to take, scared about the dose and the side effect profile. I think is very reasonable to reduce the dose to 200 mg once a day only. Needs to be monitored for Celebrex or other NSAIDs associated toxicities with lab studies including CBC and CMP at least every 12 months. For breakthrou gh pain she can take Tylenol Extra Strength. Osteoporosis 91025641 M8 1.0 History of osteoporos is. Her last bone density test was several years ago. Denies any interval fractures. She has used antiresorp tive therapy, alendronat e 70 mg once a week for several years but she is now off the medication s for many years. I would like her to have a repeat bone density test. For now maintain calcium and vitamin D supplement ation along with weightbear ing exercises. Any further decision making will be after review of the bone density. Fibromyalgia 750107871 M 79.7 Chronic fibromyalg ia syndrome.F ew fibromyalg ia tender points at the usual sites. Encouraged regular activities including daily walk as well as stretching exercises. I do not see need for any additional medication s and she will maintain the celecoxib 200 mg once a day. Long-term drug therapy 311110301 Z79.899 On account of long-term NSAIDs use, I have suggested her to obtain CBC as well as metabolic panel. [id number] WALTER BURROWS MD [facility] [address] [place] [address] 05/03/2022 13:28:17 05/03/2022 17:07:09 Overactive urinary bladder 349420783 N32.81 Follow-up 1 month [id number] RAGHAV RANGEL MD RHEUMATOL OGY [address] [place] [address] 05/26/2022 12:45:54 05/27/2022 04:21:20 Osteoarthritis 707226169 M19.90 82-year-ol d female with clinical evidence of generalize d osteoarthr itis.She is doing much better. She is post bilateral knee replacemen ts. On Celebrex once a day. Fairly stable exam without any acute findings. She is able to stand up and walk without any problems. Nonfocal exam. Continue with the current dose of Celebrex 200 mg once a day and can take Tylenol Extra Strength 2 tablets once or twice a day as a breakthrou gh pain medicine. Refills given follow-up in 6 months Osteoporosis 68927722 M8 1.0 82-year-ol d female with osteoporos is. Currently not on any antiresorp tive therapy.Sh e needs to repeat a bone density test to decide if she needs to resume the antiresorp tive therapy.Fo r now maintain calcium and vitamin D supplement ation along with weightbear ing exercises. Any further decision making will be after review of the bone density. Fibromyalgia 265884719 M 79.7 Stable at this time. Looks like the addition of low-dose Celebrex has greatly helped her symptoms. She stays very active.No need for any additional therapy [id number] AKIRA DACOSTA MD BONE DENSITY [address] [place] [address] 08/23/2022 13:46:24 08/23/2022 15:08:29 Osteopenia 403692067 M85.89 [id number] RAGHAV RANGEL MD RHEUMATOL OGY [address] [place] [address] 11/10/2022 13:05:05 11/11/2022 21:34:47 Osteoarthritis 111190298 M19.90 82-year-ol d female with clinical evidence of generalize d osteoarthr itis.Sympt omatic right shoulder. Otherwise doing quite well. She is post bilateral knee replacemen ts. On Celebrex once a day.She is able to stand up and walk without any problems.A lthough at times she has concerns about her balance.No nfocal exam. Continue with the current dose of Celebrex 200 mg once a day and can take Tylenol Extra Strength 2 tablets once or twice a day as a breakthrou gh pain medicine. Refills given follow-up in 6 months Osteoporosis 10974510 M8 1.0 82-year-ol d female with osteoporos is. Currently not on any antiresorp tive therapy.Jona ne density 08/23/2022 significan t for osteopenia . Normal bone density spine. Osteopenia hip with a femoral T score -1.9. I suggested her to take calcium and vitamin D. Maintain weightbear ing exercises. Hold off on the antiresorp tive therapy at this time. Fibromyalgia 574647646 M 79.7 Stable at this time. Looks like the addition of low-dose Celebrex has greatly helped her symptoms. 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 Suggested right shoulder x-ray, will contact her after review of the studies. She refused the intra-susan cular steroid injection. [id number] DELORIS RICHARDS MD CARDIOLOG Y [address] [place] [address] 04/26/2023 13:47:28 04/26/2023 15:19:44 Essential hypertension 63418456 I10 BP today was = 140/74 mmHg; continue with current meds. - Lisinopril 40 mg 1 p.o. daily, amlodipine 5 mg 1 p.o. daily. She has noticed some lower extremity edema after starting amlodipine . Recent blood pressure log was reviewed and this revealed systolic blood pressure range 130-160 mmHg/diast olic blood pressure range 60-70 mmHg. Patient is recommende d to check BPs at home periodical ly & bring BP log to next visit. A low sodium (< 2000 mg/day) diet is also recommende d. Dyspnea on exertion 6084 5006 R06.09 Based on history and physical exam, the patient's dyspnea is of unknown etiology. Recommenda tion:Gertrudis smith nuclear stress testing is recommende d in the near future to evaluate this issue. Systolic murmur 63617456 R01.1 Murmurs best heard at left upper sternal border but can also be heard at right upper sternal border, apex to the left axilla, and just medial to the right scapula. Patient states that she had rheumatic fever as a child. Echocardio gram from March 07, 2023 from [facility] was reviewed today. This revealed left ventricula r ejection fraction of 60%, grade 2 diastolic dysfunctio n, mild RV dilatation with normal systolic function severe left atrial dilatation with mild right atrial dilatation at thickened aortic valve with moderate aortic stenosis and moderate aortic regurgitat ion, and mitral valve with no evidence of mitral valve stenosis and a mean gradient of 4 mmHg and mild MR, mild TR, normal aortic root size, no pericardia l effusion, normal estimated RVSP of 25-30 mmHg.-The results of this study were discussed in detail with the patient and her daughter today.A printed copy of this report was given to the patient today for her records. Recommenda tion: Repeat echocardio gram in February or March 2024 to reassess aortic valve stenosis and regurgitat ion severities . Palpitations 57325394 R0 0.2 The etiology of the patient's palpitatio ns is not clear based on history and physical exam. Patient states that she notices the palpitatio ns mostly when she gets up to use the restroom at night.Stre ss (mental and/or physical) may be playing a role in the patient's symptoms. EKG today - normal sinus rhythm, rate= 85, normal axis, QTc= 408 ms, no significan t ST abnormalit ies. I recommend the patient undergo 48-hour Holter monitoring if palpitatio ns increase in frequency or duration between now and the next office visit. [id number] DELORIS RICHARDS MD [facility] [address] [place] [address] 06/07/2023 11:54:00 06/08/2023 10:42:27 [id number] DELORIS RICHARDS MD CARDIOLOG Y [address] [place] [address] 07/26/2023 14:19:20 07/26/2023 15:49:51 Essential hypertension 03925092 I10 BP today was =140/80 mmHg; continue with current meds. - Lisinopril 40 [...] 2000 mg/day) diet is also recommende d. Systolic murmur 61393385 R01.1 Murmurs best heard at left upper sternal border but can also be heard at right upper sternal border, apex to the left axilla, and just medial to the right scapula. Patient states that she had rheumatic fever as a child. Echocardio gram from March 07, 2023 from [facility] eport was reviewed today. This revealed left ventricula r ejection fraction of 60%, grade 2 diastolic dysfunctio n, mild RV dilatation with normal systolic function severe left atrial dilatation with mild right atrial dilatation at thickened aortic valve with moderate aortic stenosis and moderate aortic regurgitat ion, and mitral valve with no evidence of mitral valve stenosis and a mean gradient of 4 mmHg and mild MR, mild TR, normal aortic root size, no pericardia l effusion, normal estimated RVSP of 25-30 mmHg.-The results of this study were discussed in detail with the patient and her daughter today.A printed copy of this report was given to the patient today for her records. Recommenda tion: Repeat echocardio gram in February or March 2024 to reassess aortic valve stenosis and regurgitat ion severities . Dyspnea on exertion 6084 5006 R06.09 Based on history and physical exam, the patient's dyspnea is of unknown etiology. Echocardio gram: Repeat echo in 03/17 LexiScan nuclear stress testing (06/07/23): 1. Normal myocardial perfusion at rest and stress.2. LVEF=68%, with normal regional wall motion.3. EKG at stress revealed [address] depression in the inferior leads.A printed copy of this report was given to the patient today for her records. [id number] [place] [address] [place] [address] 12/06/2023 10:37:15 12/13/2023 07:50:21 Impairment of balance 190569264 R26.89 Unsteady when walking 22 450134 R26.89 [id number] Vivian Andino (Nicky) NEUROLOGY [address] [place] [address] 01/11/2024 13:56:38 01/15/2024 11:07:56 Paresthesia 80582277 R20.2 Abnormal g ait due to impairment of balance 236978252 R26.89 [id number] LUKE SMALLWOOD MD NEUROLOGY [address] [place] [address] 01/11/2024 13:58:09 07/23/2024 15:29:47 Impairment of balance 979533369 R26.89 Abnormal g ait due to impairment of balance 898917900 R26.89 Small fibe r neuropathy 937381431 G62.89 [id number] DELORIS RICHARDS MD CARDIOLOG Y [address] [place] [address] 07/29/2024 13:21:25 07/29/2024 14:40:05 Systolic murmur 65752883 R01.1 Murmurs best heard at left upper sternal border but can also be heard at right upper sternal border, apex to the left axilla, and just medial to the right scapula. Patient states that she had rheumatic fever as a child. Echocardio gram - March 07, 2023 ([facility]) -report was reviewed at a previous visit: [...] reassess & AI severities . Essential hypertension 71661249 I10 BP today was =118/64 mmHg, HR=84 [...] for her records. Aortic valve stenosis 60 145089 I35.0 Murmurs best heard at left upper sternal border but can also be heard at right upper sternal border, apex to the left axilla, and just medial to the right scapula. Patient states that she had rheumatic fever as a child. Echocardio gram - March 07, 2023 ([facility]) -report was reviewed at a previous visit: [...] by Organization Details LastModified Time None Recorded Advance Directives Directive None Recorded Payers Encounter Date Sequence Insurance Name Policy Number Policy Goodson Covered Member ID Goodson Member ID Guarantor Name 07/26/2023 1 [place] Lauren J Kevin [id number] Lauren J Kevin 07/26/2023 2 [place] [id number] Lauren J Kevin [id number] Lauren J Kevin 12/06/2023 1 [place] Lauren J Kevin [id number] Lauren J Kevin 12/06/2023 2 [place] [id number] Lauren J Kevin [id number] Lauren J Kevin 01/11/2024 1 [place] Lauren J Kevin [id number] Lauren J Kevin 01/11/2024 2 [place] [id number] Lauren J Kevin [id number] Lauren J Kevin 01/11/2024 1 [place] Lauren J Kevin [id number] Lauren J Kevin 01/11/2024 2 [place] [id number] Lauren J Kevin [id number] Lauren J Kevin 07/29/2024 1 [place] Lauren J Kevin [id number] Lauren Roe 07/29/2024 2 [place] [id number] Lauren Roe [id number] Lauren Roe Notes Date Note Type Note Provider Name and Address Organization Details Recorded Time 07/26/2023 text/html Mrs. Roe is a very pleasant, 83 y.o. patient with a history of GERD, osteoarthritis, osteoporosis, and hypertension who was originally seen on 04/26/2023 at the request of Dr. Todd Barton (Primary Care Provider - [place], [place]) for an evaluation of hypertension and cardiac murmur.To review:Symptomaticall y, the patient reports that she has been [...] pain, PND, orthopnea, near syncope, and syncope. Overall health is reported as stable. Patient returns to the clinic today for a scheduled follow-up visit. DELORIS RICHARDS MD [address] [place] [address], [phone], [facility] 07/27/2023 08:41:53 12/06/2023 text/html Initial Consult for sensory binvkl79 year old woman from [place]. I had known her in past years when I helped in the care of her , Alex. Today she is present with her daughter, Kathi Miller. ref Dr. Todd Barton Sensory AtaxiaShe describes that she has impaired balance. The patient has a cane but does not always use her cane. Recent fall approximately 3-4 weeks ago, she says she had a misstep. she has partial sensation loss in her feet she says strength is good in both feet LUKE SMALLWOOD MD [address] [place] [address], [phone], [facility] 12/12/2023 22:49:09 01/11/2024 text/html Return visit aft er today's EMG/NCV Addendum: At chart review 07/22/24, I identified this unsigned chart.I reviewed chart and signed note . I also submitted charge for the date of service. 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 Roe is a very pleasant, 84 y.o. patient with a history of GERD, osteoarthritis, osteoporosis, and hypertension who was originally seen on 04/26/2023 at the request of Dr. Todd Barton (Primary Care Provider - [place], [place]) for an evaluation of hypertension and cardiac murmur. She was last seen in the office on 07/26/23.To review:Symptomaticall y, the patient reports that she has been [...] a scheduled follow-up visit. DELORIS RICHARDS MD [facility] [place], [phone], [facility] 07/29/2024 14:16:07 OBGyn Episode No OBEpisode recorded.
== END 2024-07-28 14:41 | disposition home or self-care (01) ==
PROVIDERS: Physician Assistant; Emergency Provider Emergency Medicine; PCP Internal Medicine Adolescent Medicine
DX: K59.89 Other specified functional intestinal disorders (principal); K59.00 Constipation, unspecified; R10.31 Right lower quadrant pain; R11.0 Nausea
CPT/HCPCS: 74177; 80053; 81001; 83605; 83690; 85025; 93005; 96374; 99285; J2405; Q9967

== ENCOUNTER 2024-08-07 13:16 | Outpatient (CLI) | payer MEDICARE, BC, SELFPAY ==
[2024-08-09 13:21] LABS: Pancreatic Elastase, Fecal >800 (>200)
== END 2024-08-07 23:59 | disposition home or self-care (01) ==
LOC: LAB 13:18
PROVIDERS: PCP Internal Medicine Adolescent Medicine; Visit Provider Internal Medicine Gastroenterology
DX: K59.00 Constipation, unspecified (principal); K58.9 Irritable bowel syndrome, unspecified
CPT/HCPCS: 82656

== ENCOUNTER 2024-08-29 10:13 | Day surgery (SDC) | payer MEDICARE, BC, SELFPAY ==
[2024-08-27 13:21] VITALS: BMI 23.1
[2024-08-29] VITALS (7 sets, daily range): BP systolic 129–159; BP diastolic 66–79; PULSE 74–91; RESP 14–16; TEMP 36.4–36.6; O2SAT 97–100
[2024-08-29] MEDS: LACTATED RINGERS 1000ML 1,000 ML 50 ML IV (10:32)
--- NOTE | 2024-08-29 10:44 | P.PNANES_ITS ---
[facility] Disclaimer: The information contained in this section may have been updated after the patient was seen, as this information can be updated by other users. Medical History Endometrial polyp COPD (chronic obstructive pulmonary disease) History of gastroesophageal reflux (GERD) Hyperlipidemia Hypertension Ovarian cyst Hematuria Surgical History History of cholecystectomy History of tonsillectomy History of appendectomy History of bilateral knee replacement Family History Other Family history of myocardial infarction No significant family history Ovarian cancer Social History (Updated 08/27/24 @ 13:06 by Carmencita Bettencourt RN) Smoking Status: Never smoker alcohol intake: never substance use type: denies use current occupational status: retired and other Travel in the last 8 weeks?: None household members: none housing: house caffeine: Yes Have you lived/traveled outside US in past 30 days?: No Contact w/someone who lives/traveled outside US past 30 days?: No Exposure to someone with infectious disease in past 14 days?: No Do you have a fever (greater than 100.4 F or 38 C)?: No Have you tested positive for COVID-19?: No Exposed to someone with COVID-19 in past 14 days?: No Do you have a sore throat?: No Do you have a cough?: No Do you have any weakness?: No Are you experiencing any nausea/vomitting?: No Do you have any diarrhea?: No Are you experiencing any unusual bleeding?: No Do you have any muscle aches/pain?: No Do you have any abdominal pain?: No Are you experiencing loss of taste or smell?: No [facility] Anesthesia Checklist Patient Identification Patient Identification: Arm Band and Verbal (Name & ) Structural Data Admitted From: Home Planned Operative Procedure/s: colonoscopy Consent for Planned Operative Procedure(s) Verified: Yes Verified Documents: Surgical Consent NPO Status Verified Time NPO: 00:00 Chart Verification Results Verified: ECG Additional verifications Anesthesia Reactions: No Hx Blood Transfusions: No Blood Transfusion Reaction: No Airway Assessment Mallampati Score:: Class II C-Spine Mobility Assessed: Yes TMJ Mobility Assessed: No Dentition: Dentures-good fit Neurological Assessment Level of Consciousness: Awake, Alert and Appropriate Hx Seizures: No Numbness or tingling in extremities: No Anesthesia Plan Anesthesia Risk discussed: Yes Anesthesia Plan: Verified ASA Class: II Anesthesia Type: MAC
--- NOTE | 2024-08-29 11:06 | EXP.HP ---
History of Present Illness *Admission Date: 08/29/24 *Reason for visit:: Dysphagia *History of present illness: Mrs. Brown is an 84-year-old female who is here for dysphagia and swallowing difficulty with prior history of Schatzki's ring and dilation in 2019. The examination is deemed medically necessary for diagnostic/therapeutic upper endoscopy. The patient has been seen, interviewed and examined prior to the procedure by both myself and the anesthesia provider. [facility] Disclaimer: The information contained in this section may have been updated after the patient was seen, as this information can be updated by other users. Medical History (Updated 08/29/24 @ 11:08 by Raymond Jimenez II, MD) Endometrial polyp COPD (chronic obstructive pulmonary disease) History of gastroesophageal reflux (GERD) Hyperlipidemia Hypertension Ovarian cyst Hematuria Surgical History History of cholecystectomy History of tonsillectomy History of appendectomy History of bilateral knee replacement Family History Other Family history of myocardial infarction No significant family history Ovarian cancer Social History (Updated 08/27/24 @ 13:06 by Carmencita Bettencourt RN) Smoking Status: Never smoker alcohol intake: never substance use type: denies use current occupational status: retired and other Travel in the last 8 weeks?: None household members: none housing: house caffeine: Yes Have you lived/traveled outside US in past 30 days?: No Contact w/someone who lives/traveled outside US past 30 days?: No Exposure to someone with infectious disease in past 14 days?: No Do you have a fever (greater than 100.4 F or 38 C)?: No Have you tested positive for COVID-19?: No Exposed to someone with COVID-19 in past 14 days?: No Do you have a sore throat?: No Do you have a cough?: No Do you have any weakness?: No Are you experiencing any nausea/vomitting?: No Do you have any diarrhea?: No Are you experiencing any unusual bleeding?: No Do you have any muscle aches/pain?: No Do you have any abdominal pain?: No Are you experiencing loss of taste or smell?: No Other Medical History Have you received the Pneumonia Vaccine: Yes Review of Systems Review of Systems Review of systems (narrative): Negative *Cardiovascular Comments: Negative *Gastrointestinal Comments: Negative *Genitourinary Comments: Negative *Musculoskeletal Comments: Negative *Neurologic Comments: Negative Meds Home Medications and Allergies Home Medications ?Medication ?Instructions ?Recorded ?Confirmed ?Type celecoxib 100 mg capsule (Celebrex) 100 mg PO DAILY 03/03/23 08/29/24 History lisinopril 20 mg tablet 20 mg PO DAILY 03/03/23 08/29/24 History psyllium seed (sugar) oral powder 1 tbsp PO DAILY 04/02/24 08/29/24 History (Metamucil (sugar) oral powder) alprazolam 0.25 mg tablet 0.25 mg PO NEEDED PRN per md 08/06/24 08/29/24 History polyethylene glycol 3350 17 gram 17 g PO DAILY 08/27/24 08/29/24 History oral powder packet (Miralax) New Prescriptions to Start Prescriptions: Allergies Allergy/AdvReac Type Severity Reaction Status Date / Time Penicillins Allergy Mild Other Verified 08/29/24 10:31 albuterol AdvReac Other Verified 08/29/24 10:31 Exam Data for Last 24 hours Vital signs and Labs for Last 24 Hours: Temp Pulse Resp BP Pulse Ox O2 Del Method O2 Flow Rate 97.9 F 91 H 16 145/74 H 97 Nasal Cannula 5 08/29/24 10:32 08/29/24 10:32 08/29/24 10:32 08/29/24 10:32 08/29/24 10:32 08/29/24 10:49 08/29/24 10:49 I & O for Last 24 hours: Intake & Output 08/26/24 08/27/24 08/28/24 08/29/24 23:59 23:59 23:59 23:59 Weight 135 lb *Routine HEENT Exam Head: Present normocephalic Eye: Present EOMI and PERRL ENT: Present mucous membranes moist *Routine Neck Exam Neck: Present supple *Routine Respiratory Exam Respiratory: Present CTA bilaterally *Routine Cardiovascular Exam Cardiovascular: Present RRR *Routine Abdominal Exam Abdominal: Present soft and normoactive bowel sounds; Absent tenderness *Routine Rectal Exam Rectal:: deferred *Routine Genitalia Exam Genitalia:: deferred *Routine Extremities Exam Extremities: Absent cyanosis, clubbing or edema *Routine Skin Exam Skin: Present warm; Absent rash *Routine Neurological Exam Neurological: Present alert and oriented X3 Assessment and Plan *Assessment and plan (1) Dysphagia: Status: Acute Category: Medical Code(s): R13.10 - Dysphagia, unspecified (2) Schatzki's ring: Status: Acute Category: Medical Code(s): K22.2 - Esophageal obstruction (3) Dilation of duodenum: Status: Acute Category: Medical Code(s): K59.89 - Other specified functional intestinal disorders (4) Duodenal diverticulum: Status: Acute Category: Medical Code(s): K57.10 - Diverticulosis of small intestine without perforation or abscess without bleeding Plan A/P: 1. Dysphagia (recurrent) with history of Schatzki's ring and dilation in 2020 is the preprocedural diagnosis. The patient also had large duodenal diverticulum on CAT scan with dilated loop of duodenum. The patient will be anesthetized/sedated using MAC sedation. The patient has been seen and examined. Cardiac and lung assessment prior to the examination is stable. Proceed with planned diagnostic/therapeutic upper endoscopy.
--- NOTE | 2024-08-29 11:08 | HMH.PROCNOTE ---
[facility] Procedure Note Date: 08/29/24 Time: 11:14 Procedure Note:: Upper Endoscopy Procedure Report: Esophagogastroduodenoscopy with cold biopsies and TTS balloon dilation Endoscopost: Raymond Jimenez II, MD Referring Physician: Todd Hawk M.D. Date of Procedure: August 29, 2024 Equipment: Olympus GIF 190 standard upper endoscope Sedation: MAC sedation Indications: Mrs. Brown is an 84-year-old female with recurrent dysphagia who is here for diagnostic/therapeutic upper endoscopy. She has had a prior history of an esophageal Schatzki's ring. [facility] and had a Schatzki's ring that was dilated. The patient has had some longstanding chronic constipation and dyspepsia. She reports no heartburn or reflux. She has had some recurrent swallowing difficulties. Her CAT scan in July 2024 showed a dilated loop of duodenum likely secondary to a large duodenal diverticulum. She presently has no other abdominal complaints. Procedure: Prior to the procedure, a history and physical exam was performed, and patient's medications and allergies were reviewed. The risks, benefits and alternatives of the sedation and procedure were discussed with the patient. All questions were answered and informed consent was obtained. The patient was brought to the procedure room. Patient identification and proposed procedure were verified by the physician and the nurse. The patient was placed in a left lateral decubitus position and the scope was passed under direct vision. Throughout the procedure, the patient's blood pressure, pulse, and oxygen saturations were monitored continuously. The upper GI endoscopy was accomplished without difficulty. The patient tolerated the procedure well. Findings: The scope was passed directly into the upper esophagus and advanced to the third portion of the duodenum. The post bulbar duodenum had a large duodenal diverticulum in the third portion of duodenum. There was normal duodenal mucosa and conniventes. The scope was withdrawn through a normal duodenal bulb and pylorus into the stomach. There was mild linear reactive gastropathy of the antrum. The body and fundus were normal. Cold biopsies were taken from the antrum. Upon retroflexion there was a very small sliding 1 to 2 cm hiatal hernia. The scope was then withdrawn into the esophagus. There was a distal Schatzki's ring. There was no evidence of reflux esophagitis or Kenyon's. There were some tertiary contractions and mild esophageal dysmotility. The remainder of the esophageal mucosa was normal. This Schatzki's ring was dilated to 60 British/20 mm with a TTS hydrostatic balloon with shattering of the ring. The diameter of the ring was originally 16 to 17 mm and was dilated to 20 mm. Impression: 1. Schatzki's ring status post dilation to 20 mm 2. Very small sliding hiatal hernia 3. Mild linear reactive gastropathy of antrum 4. Large duodenal diverticulum (third portion) Plan: The patient should have clinical improvement with dilation. I will discuss the findings with the patient and family.
== END 2024-08-29 12:10 | disposition home or self-care (01) ==
PROVIDERS: PCP Internal Medicine Adolescent Medicine; Visit Provider Internal Medicine Gastroenterology
PROC: 0DJ08ZZ Inspection of Upper Intestinal Tract, Via Natural or Artificial Opening Endoscopic (ICD-10-PCS; CPT 43239; principal; 2024-08-29 12:00)
DX: R13.10 Dysphagia, unspecified (principal); K22.2 Esophageal obstruction; K59.89 Other specified functional intestinal disorders; K57.10 Diverticulosis of small intestine without perforation or abscess without bleeding; K59.09 Other constipation; R10.13 Epigastric pain; K22.4 Dyskinesia of esophagus; K44.9 Diaphragmatic hernia without obstruction or gangrene; K31.9 Disease of stomach and duodenum, unspecified
CPT/HCPCS: 43239; 43249; C1726; J7120

== ENCOUNTER 2024-12-10 12:32 | Outpatient (RCR) | payer MEDICARE, BC, SELFPAY ==
--- NOTE | 2024-12-10 14:51 | HMH.PTOPEV ---
PT Outpatient Evaluation Rehab PT Outpatient Evaluation Start: 12/10/24 13:06 Freq: Status: Active Protocol: Document 12/10/24 13:06 ISHAAN (Rec: 12/10/24 14:50 ISHAAN [id number]) E-signed By Giorgi Carbone, PT Outpatient Therapy Subjective History Subjective History Pt is an 84 yof who is referred to [facility] outpatient PT with complaints of neck pain. Pt also being evaluated by [facility] occupational therapy for right shoulder pain. Pt reports that she has been unable to do a lot of her normal daily activities, such as working in her flower beds. 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 Pt reports that she would rather not see both OT and PT at this time, but she would prefer to only work on her neck. Pt reports that this pain has been ongoing for about 3 months. Pt reports that she has dealt with her R shoulder pain for 3-4 years. Occupation: Retired PMH: Endometrial polyp COPD (chronic obstructive pulmonary disease) History of gastroesophageal reflux (GERD) Hyperlipidemia Hypertension Ovarian cyst Hematuria New diagnosis of No cancer in past 12 months? Current Functional Reaching,Lifting,Housework,Desk Work/Reading Limitations Symptom Description Constant but Variable,Activity Dependent Level of pain today 5 (0-10) Pain scale - at its 3 best (0-10) Pain scale - at its 9 worst (0-10) Cervical Eval Palpation Cervical Muscles R Cervical Paraspinal,L Cervical Paraspinal,R CT Junction,L CT Junction,R Upper Trapezius,L Upper Trapezius Cervical/Thoracic Tenderness,Trigger Point Palpation Findings Posture Head/C-Spine Posture Flexed Sitting Position Head/C-Spine Posture Flexed Standing Position Flexibility Deficits Upper Trapezius (R) Moderate Tightness,(L) Moderate Tightness Muscle Length Pectoralis Minor (R) Moderate Tightness,(L) Moderate Tightness Muscle Length Passive Joint Mobility Cervical PIVM Dec: R C4/5 L C4/5 R C5/6 L C5/6 R C6/7 L C6/7 AROM Cervical Spine 20 Extension Active Range of Motion ( degrees) Cervical Spine 25 Flexion Active Range of Motion (degrees) Cervical Spine Right 15 Lateral Flexion Active Range of Motion (degrees) Cervical Spine Left 15 Lateral Flexion Active Range of Motion (degrees) Cervical Spine Right 20 Rotation Active Range of Motion ( degrees) Cervical Spine Left 20 Rotation Active Range of Motion ( degrees) MMT Left Deltoid (C5) 3 Fair Biceps Brachii 4 Good Strength Grade Wrist Extension 4 Good Strength Grade Triceps Brachii 4 Good Strength Grade Wrist Flexion 4 Good Strength Grade Extensor Pollicis 5 Normal Longus Strength Grade Finger Abduction 5 Normal Strength Grade Right Deltoid (C5) 2- Poor- Biceps Brachii 4 Good Strength Grade Wrist Extension 4 Good Strength Grade Triceps Brachii 4 Good Strength Grade Wrist Flexion 4 Good Strength Grade Extensor Pollicis 5 Normal Longus Strength Grade Finger Abduction 5 Normal Strength Grade DTR Rt Biceps 1+ Lt Biceps 1+ Rt Brachioradialis 1+ Lt Brachioradialis 1+ Rt Triceps 1+ Lt Triceps 1+ Altered Sensation Bilateral Comment Intact to LT symmetrically Special Test C-Spine Foraminal Negative Left,Negative Right Compression ( Spurling) Test C-spine Verterbral Central P/A Bozman,Right P/A Bozman Accessory Movements that Elicit Symptoms C-Spine Foraminal Negative Distraction Test C-Spine Compression Positive Left,Positive Right Test C-Spine Swallowing Negative Right Test Shoulder Abduction Negative Left,Negative Right Relief Test Shoulder Brachial Negative Left,Negative Right Plexus Stretch Test Neck Disability Index Neck Disability Index Section 1: Pain The pain is moderate at the moment Intensity Section 2: Personal I can look after myself normally but it causes extra Care (washing, pain dressing, etc.) Section 3: Lifting Pain prevents me from lifting heavy weights, but I can manage light to Section 4: Reading I can't read as much as I want because of moderate pain in my neck Section 5: Headaches I have moderate headaches, which come infrequently Section 6: I have a fair degree of difficulty in concentrating Concentration when I want to Section 7: Work I can only do my usual work, but no more Section 8: Driving I can drive my car as long as I want with slight pain in my neck Section 9: Sleeping My sleep is midly disturbed (1-2 hrs sleepless) Section 10: I am able to engage in a few of my usual recreation Recreation activities because NDI Score 20 Miscellaneous Dx PT Eval Objective Objective Rhomboid MMT: R 2/5, L 2+/5 Outpatient Therapy Assessment Impairments Problems/ Palpation Tenderness,Impaired Range of Motion,Impaired Impairmments Strength,Impaired Standing,Impaired Sitting,Impaired Household Care,Impaired Recreational Activities, Subjective C/O Pain,Impaired Self Care/Self Management Prognosis Rehab Potential Fair Comment w HEP compliance Clinical Impression Consistent with Yes Diagnosis Consistent with neck pain w mobility deficits Additional details: M54.2 PT Patient Goals PT Patient Goals PT Short Term In 4 weeks: Patient Goals 1. Patient will report a 48 hour average pain of 5/10 on the numeric pain rating scale to demonstrate improvement in quality of life and increased functional capacity. 2. Patient will improve rhomboid strength upon manual muscle testing to 3/5 facilitate increased spinal stabilization, cervical support and improved functional capabilities. 3. Patient will demonstrate a reduction in trigger point sensitivity to Grade 2 with manual palpation to improve comfort during activity and soft tissue mobility. 4. Patient will improve cervical ROM by 5 degrees without pain in all planes to demonstrate improved movement patterns with functional mobility and ADLs. 5. Pt will demonstrate HEP compliance by completing prescribed HEP 4-5x/week. 6. Pt will improve NDI score to 16 to demonstrate improvement functional capabilities and improved QOL. 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 Patient will report a 48 hour average pain of 2-3/10 on the numeric pain rating scale to demonstrate improvement in quality of life and increased functional capacity. 2. Patient will improve rhomboid strength upon manual muscle testing to 4/5 facilitate increased spinal stabilization and improved functional capabilities. 3. Patient will demonstrate a reduction in trigger point sensitivity to Grade 0-1 with manual palpation to improve comfort during activity and soft tissue mobility. 4. Patient will improve cervical ROM by 10-15 degrees, without pain, in all planes to demonstrate improved movement patterns with functional mobility and ADLs. 5. Pt will improve NDI score to 12 to demonstrate improvement functional capabilities and improved QOL. 6. 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 Outpatient Therapy Plan of Care Treatment Plan May Include Therapeutic Exercise Yes Including Home Exercise Program Manual Therapy Yes Techniques Neuromuscular Re- Yes education Therapeutic Yes Activities to Return to Previous Functional/Work Level ADL/Self Care Yes Education Thermal Modalities Yes Electrical Yes Stimulation Massage Yes Manual Lymphatic Yes Drainage Eval/Re-Eval Yes Frequency Times per week 2 Duration Number of Weeks 8 Addendums This patient is a No candidate for social or vocational rehab ? Patient/Guardian Yes verbally acknowledges understanding of treatment program and consents to further treatment? Patient/Guardian Yes verbally acknowledges understanding of diagnosis, prognosis and goals for treatment? Eval Complexity PT Charges 73952 - High Complexity Shoulder/Elbow Eval Shoulder Objective Measurements Elbow Objective Measurements PHYSICIAN CERTIFICATION: I certify the specified therapy services for Lauren Brown are required, authorized, and reviewed every 30 days.
== END 2024-12-10 23:59 | disposition home or self-care (01) ==
LOC: PT 12:32
PROVIDERS: PCP Internal Medicine Adolescent Medicine; Visit Provider Internal Medicine Adolescent Medicine
DX: M54.2 Cervicalgia (principal)
CPT/HCPCS: 97163; 97530

== ENCOUNTER 2024-12-10 12:35 | Outpatient (RCR) | payer MEDICARE, BC, SELFPAY | END 2024-12-10 23:59 | disposition home or self-care (01) | LOC: OT 12:35 | PROVIDERS: PCP Internal Medicine Adolescent Medicine; Visit Provider Internal Medicine Adolescent Medicine | DX: M54.2 Cervicalgia (principal) | CPT/HCPCS: 97165; 97530 ==

== ENCOUNTER 2025-01-21 14:00 | Outpatient (RCR) | payer MEDICARE, BC, SELFPAY ==
--- NOTE | 2025-01-09 15:54 | HMH.RHREAS ---
Rehab Reassessment Rehab OP Re-assessment Start: 12/25/24 13:57 Freq: Status: Active Protocol: Document 01/09/25 15:16 ISHAAN (Rec: 01/09/25 15:54 ISHAAN [id number]) E-signed By Giorgi Carbone PT Neck Disability Index Neck Disability Index Section 1: Pain The pain is moderate at the moment Intensity Section 2: Personal It is painful to look after myself and I am slow and Care (washing, careful dressing, etc.) Section 3: Lifting Pain prevents me lifting heavy weights off the floor, but I can manage Section 4: Reading I can read as much as I want to with slight pain in my neck Section 5: Headaches I have slight headaches, which come infrequently Section 6: I have a fair degree of difficulty in concentrating Concentration when I want to Section 7: Work I can only do my usual work, but no more Section 8: Driving I can drive my car as long as I want with slight pain in my neck Section 9: Sleeping My sleep is midly disturbed (1-2 hrs sleepless) Section 10: I am able to engage in all my recreation activities Recreation with some pain in NDI Score 15 Rehab Re-assessment Subjective Subjective Pt reports that she has improved some since her initial evaluation. Pt reports that she has been able to do a lot more around the house without pain. Pt reports that she does not have as much pain at the end of the day, compared to before physical therapy. Pt reports that her R shoulder continues to give her a lot of issues. Pt reports that it is worse than her shoulder. Pt reports that her current pain in her neck is a 6/10. Pt reports that she has consistently been doing her HEP. Pt reports that she would like to continue PT for at least a few more visits. Objective Objective Notes NDI: 15 (20 on IE) ROM: Ext: 22 (20 on IE) Flexion: 25 (25 on IE) LF: 15 (15 b/l on IE) Rpt: 20 (20 b/l on IE) MMT: - Rhomboids 3/5 TTP: 3/4 to L Cervical paraspinals, CT Junction. Assessment Progress Assessment Slower Than Expected Assessment Notes Pt presents for reassessment this date after 1 month of skilled PT. Pt's sessions have consisted of L shoulder mobility exercises, cervical mobility training, scapular strengthening and pain management. Pt has made very little progress at this point in her care. She has made improvement on her NDI score, however, she demonstrates minimal change in strength, ROM, and tenderness to palpation. Pt is severely limited in rehab by her R shoulder, which has complicated her particular case. Skilled PT remains indicated for this pt at this time. PT Patient Goals PT Short Term In 4 weeks: Patient Goals 1. Patient will report a 48 hour average pain of 5/10 on the numeric pain rating scale to demonstrate improvement in quality of life and increased functional capacity. NM 2. Patient will improve rhomboid strength upon manual muscle testing to 3/5 facilitate increased spinal stabilization, cervical support and improved functional capabilities. MET 3. Patient will demonstrate a reduction in trigger point sensitivity to Grade 2 with manual palpation to improve comfort during activity and soft tissue mobility. NOT MET 4. Patient will improve cervical ROM by 5 degrees without pain in all planes to demonstrate improved movement patterns with functional mobility and ADLs. NOT MET 5. Pt will demonstrate HEP compliance by completing prescribed HEP 4-5x/week. MET 6. Pt will improve NDI score to 16 to demonstrate improvement functional capabilities and improved QOL. 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 Patient will report a 48 hour average pain of 2-3/10 on the numeric pain rating scale to demonstrate improvement in quality of life and increased functional capacity. NM 2. Patient will improve rhomboid strength upon manual muscle testing to 4/5 facilitate increased spinal stabilization and improved functional capabilities. NM 3. Patient will demonstrate a reduction in trigger point sensitivity to Grade 0-1 with manual palpation to improve comfort during activity and soft tissue mobility. NM 4. Patient will improve cervical ROM by 10-15 degrees, without pain, in all planes to demonstrate improved movement patterns with functional mobility and ADLs. NM 5. Pt will improve NDI score to 12 to demonstrate improvement functional capabilities and improved QOL. NM 6. 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 NM Plan Plan Continue as per initial POC, utilizing the following activities, methods and frequency. This reassessment has been sent to the referring provider for signature. Frequency of Therapy 2/week Duration of Therapy 4 weeks Therapeutic Exercise Yes Including Home Exercise Program Manual Therapy Yes Techniques Neuromuscular Re- Yes education Therapeutic Yes Activities to Return to Previous Functional/Work Level Gait Training Yes ADL/Self Care Yes Education Thermal Modalities Yes Electrical Yes Stimulation Ultrasound/ Yes Phonophoresis Iontophoresis Yes Massage Yes Manual Lymphatic Yes Drainage Eval/Re-Eval Yes Time and Billing Re-Eval Time 10 Re-Eval Billing 0 Units Charge for PT No reassessment? PHYSICIAN CERTIFICATION: I certify the specified therapy services for Lauren Brown are required, authorized, and reviewed every 30 days.
== END 2025-01-21 23:59 | disposition home or self-care (01) ==
LOC: PT 14:00
PROVIDERS: PCP Internal Medicine Adolescent Medicine; Visit Provider Internal Medicine Adolescent Medicine
DX: M54.2 Cervicalgia (principal)
CPT/HCPCS: 97110; 97530

== ENCOUNTER 2025-01-23 13:46 | Outpatient (RCR) | payer MEDICARE, BC, SELFPAY | END 2025-01-23 23:59 | disposition home or self-care (01) | LOC: PT 13:46 | PROVIDERS: PCP Internal Medicine Adolescent Medicine; Visit Provider Internal Medicine Adolescent Medicine | DX: M54.2 Cervicalgia (principal) | CPT/HCPCS: 97110; 97530 ==

== ENCOUNTER 2025-02-11 12:05 | Outpatient (CLI) | payer MEDICARE, BC, SELFPAY ==
--- OUTSIDE RECORDS SUMMARY | 2025-02-11 12:08 | XMS_ITS | Clinical Summary ---
Author Organization [employer] [facility] ([place], [place], [place], [place]) Address [address] [place] [address] Care Team Providers Care Preparing Box Tender Name Role Phone Unavailable Primary Care Provider Unavailabl e Social History Tobacco Use Types Packs/Day Years Used Date Smoking Tobacco: Never Assessed Comments Unknown Sex and Gender Information Value Date Recorded Sex Assigned at Not on file Legal Sex Female 11:18 AM CDT Gender Identity Not on file Sexual Orientation Not on file Plan of Treatment Not on file
--- OUTSIDE RECORDS SUMMARY | 2025-02-11 12:09 | XMS_ITS | Referral Summary ---
Author Organization [employer] ([place], [place], [place], [place]) Address [address] [place] [address] Care Team Providers Care Compensation Adjuster Name Role Phone Unavailable Primary Care Provider [...]
--- OUTSIDE RECORDS SUMMARY | 2025-02-11 12:09 | XMS_ITS | Encounter Summary ---
Author Organization Healthcare Address [address] [id number] Care Team Providers Care Front End Developer Designer Name Role Phone Todd Hawk MD Primary Care Provider [phone] Encounter Details Date Type Department Care Team (Late Contact Info) Description 07/03/2023 [facility] [address] [place] [address] Todd Hawk [facility] [address] [facility] [address] [place] [address] Social History Tobacco Use Types Packs/Day Years Used Date Smoking Tobacco: Never Assessed Comments Unknown Sex and Gender Information Value Date Recorded Sex Assigned at Not on file Legal Sex Female 8:25 PM EDT Gender Identity Not on file Sexual Orientation Not on file documented as of this encounter Plan of Treatment Upcoming Encounters Date Type Department Care Team (Late st Contact Info) Description 02/17/2025 3:30 PM EDT Ovarian Cancer Screening [facility] Gynecology [address] [facility] [place] [address] documented as of this encounter Visit Diagnoses Not on filedocumented in this encounter Care Teams Front End Developer Designer Relationship Specialty Start Date End Date Todd Hawk MD [address] [place] [address] PCP - General 02/19/21 documented as of this encounter
--- OUTSIDE RECORDS SUMMARY | 2025-02-11 12:09 | XMS_ITS | Clinical Summary ---
Author Organization Healthcare Address [address] [place] [address] Care Team Providers Care Senior Oracle Database Developer Name Role Phone Todd Hawk MD Primary Care Provider Social History Tobacco Use Types Packs/Day Years Used Date Smoking Tobacco: Never Assessed Comments Unknown Sex and Gender Information Value Date Recorded Sex Assigned at Not on file Legal Sex Female 8:25 PM EDT Gender Identity Not on file Sexual Orientation Not on file Plan of Treatment Upcoming Encounters Date Type Department Care Team ([facility] Contact Info) Description 02/17/2025 3:30 PM EDT Ovarian Cancer Screening [facility] Gynecology [address] [facility] [place] [address] Health Maintenance Due Date Last Done Comments [facility]-Depression Screening 1938 [facility]-Medicare Annual Wellness (AWV) 1938 [facility]-/Child/Adol SDOH Screenings 1940 [facility]- SDOH Screenings 01/25/1956 [facility]-Adult SDOH Screenings 01/25/1956 [facility]-DTaP,Tdap,and Td Vaccines (1 - Tdap) 1957 [facility]-Bone Density Scan 08/23/2024 08/23/2022, 023 [id number] Vaccine ( season) 2024 08/16/2021, 03/17/2021, 06/24/2020, Additional history exists [facility]-Influenza Vaccine (#1) 12/23/202402/04, 02/02/2023, 01/12/2022, Additional history exists [facility]-Pneumococcal Vaccine: 50+ Years Completed 09/07/2022 [facility]-Zoster Vaccines Completed 12/14/2022, 3 [facility]-RSV Vaccine: 60+ Years or Completed 03/21/2023 HPV Vaccines Aged Out No longer eligi ble based on patient's age to complete this topic [facility]-HIB Vaccines Aged Out No longer e ligible based on patient's age to complete this topic [facility]-Hepatitis A Vaccines Aged Out No longer eligible based on patient's age to complete this topic [facility]-IPV Vaccines Aged Out No longer e ligible based on patient's age to complete this topic [facility]-Rotavirus Vaccines Aged Out No lo nger eligible based on patient's age to complete this topic Insurance MEDICARE Care Teams Senior Oracle Database Developer Relationship Specialty Start Date End Date Todd Hawk MD [address] [place] [address] PCP - General 02/19/21
[2025-02-11 13:31] LABS: Albumin Level 3.6 g/dl (3.5-5.0); Chloride 100 mmol/L (98-107)
[2025-02-11 13:32] LABS: Potassium 4.0 mmoL/L (3.5-5.1); Sodium 137 mmol/L (136-145)
[2025-02-11 13:34] LABS: Alanine Aminotransferase 10 U/L (12-78); Albumin/Globulin Ratio 1.3 (1.1-1.8); Alkaline Phosphatase 81 U/L (38-126); Amylase 54 U/L (30-110); Anion Gap 10.0 mEq/L (5-15); Aspartate Amino Transferase 22 U/L (14-36); Bilirubin,Total 0.5 mg/dl (0.2-1.3); Blood Urea Nitrogen 18 mg/dl (7-17); Calcium 8.8 mg/dl (8.4-10.2); Carbon Dioxide 31 mmol/L (22.0-30.0); Creatinine,Serum 0.60 mg/dl (0.52-1.04); Estimated Glomerular Filt Rate 95 ml/min (>60); GFR (African American) 114 ML/MIN (>60); Globulin 2.7 g/dL (1.3-3.2); Glucose 90 mg/dl (74-100); Total Protein,Serum 6.3 g/dl (6.3-8.2)
== END 2025-02-11 23:59 | disposition home or self-care (01) ==
LOC: LAB 12:06
PROVIDERS: PCP Internal Medicine Adolescent Medicine; Visit Provider Internal Medicine Gastroenterology
DX: R10.9 Unspecified abdominal pain (principal)
CPT/HCPCS: 36415; 80053; 82150